=== PATIENT | female | born 1975 | race American Indian/Alaskan Native ===

== ENCOUNTER 2019-05-05 16:41 | Emergency (ER) | payer MEDICAID ==
--- NOTE | 2019-05-05 17:10 | Event Note ---
ED Screening Note ED Screening Note: l hip pain out of her bp meds no fall or trauma no dysuria lmp yrs ago psh csec nephrectomy no pcp pmh hx perigangleoma ca htn rx metoprolol norvasc This initial assessment/diagnostic orders/clinical plan/treatment(s) is/are subject to change based on patients health status, clinical progression and re- assessment by fellow clinical providers in the ED. Further treatment and workup at subsequent clinical providers discretion. Patient/guardian urged not to elope from the ED as their condition may be serious if not clinically assessed and managed. Initial orders include: bp recheck rx in acc pcp referral
[2019-05-05 17:40] LABS: Hematocrit 39.9 % (30.3-42.9); Hemoglobin 13.6 gm/dl (10.1-14.3); Mean Corpuscular HGB Conc 34 % (30-34); Mean Corpuscular Volume 92 fl (79-97); Platelet Count 240 K/mm3 (140-440); Red Blood Count 4.35 M/mm3 (3.65-5.03); Red Cell Distribution Width 15.4 % (13.2-15.2)
[2019-05-05 17:43] LABS: Bacteria,Urine 1+ /HPF (Negative); Bilirubin,Urine NEG (Negative); Blood,Urine SM (Negative); Color,Urine Yellow (Yellow); Mucus,Urine FEW /HPF; Protein,Urine <15 mg/dL mg/dL (Negative); Urobilinogen,Urine < 2.0 mg/dL (<2.0)
[2019-05-05 17:55] LABS: HCG Qualitative,Urine Negative (Negative)
[2019-05-05 18:00] LABS: Calcium 9.8 mg/dL (8.4-10.2)
[2019-05-05] MEDS ORDERED: DELTASONE PO STA (18:46)
[2019-05-05] MEDS ORDERED: PERCOCET 5/325 PO STA (18:46)
[2019-05-05 19:15] VITALS: BP 160/113
--- NOTE | 2019-05-05 19:47 | Emergency Department Report ---
ED General Adult HPI - General Chief complaint: Back Pain/Injury Stated complaint: (L) SIDE/BACK/HIP/LEG/ARM PAIN(S) Time Seen by Provider: 05/05/19 17:07 Source: patient Mode of arrival: Ambulatory Limitations: No Limitations - History of Present Illness Initial comments: 43 year old -[place] Citizen female with past medical history of hypertension presents emergency department complaining of pain to the left hip and back region been present for the last 2 days. Pain fluctuates down her left buttocks and her right left thigh stopping at her knee, worse with palpation and various range of motion. She's also has a history of hypertension which she takes amlodipine 5 mg and a lower dose of metoprolol. She's been out of her medication for the last couple days and reports that her blood pressure has been elevated. She denies any headache, blurred vision, chest pain, palpitations, nausea, O, vomiting, tinnitus. She has not tried to take anything for pain and denies any known injury, which exacerbated her hip trauma or which may have caused her blood pressure checked to a little bit further. She does see her primary care care doctor, but has been out of his medications since last visit in due to follow-up with them next week. Severity scale (0 -10): 1 Quality: dull Consistency: constant Improves with: none Worsens with: none Associated Symptoms: denies other symptoms - Related Data Previous Rx's Medication Instructions Recorded Last Taken Type Metoprolol [Lopressor TAB] 25 mg PO BID #30 tablet 05/05/19 Unknown Rx amLODIPine [Norvasc] 5 mg PO DAILY #20 tab 05/05/19 Unknown Rx methOCARBAMOL [Robaxin TAB] 750 mg PO Q8H PRN #20 tablet 05/05/19 Unknown Rx predniSONE [Deltasone] 50 mg PO QDAY #7 tab 05/05/19 Unknown Rx Allergies Allergy/AdvReac Type Severity Reaction Status Date / Time levofloxacin Allergy Unknown Verified 05/05/19 16:44 ED Review of Systems ROS: Stated complaint: (L) SIDE/BACK/HIP/LEG/ARM PAIN(S) Other details as noted in HPI Comment: All other systems reviewed and negative ED Past Medical Hx - Past Medical History Previous Medical History?: Yes Hx Hypertension: Yes Additional medical history: PERIGANGLIOMA,LEFT NEPHRECTOMY, KIDNEY CA - Surgical History Past Surgical History?: Yes - Social History Smoking Status: Never Smoker Substance Use Type: None - Medications Home Medications: Home Medications Medication Instructions Recorded Confirmed Last Taken Type Metoprolol [Lopressor TAB] 25 mg PO BID #30 tablet 05/05/19 Unknown Rx amLODIPine [Norvasc] 5 mg PO DAILY #20 tab 05/05/19 Unknown Rx methOCARBAMOL [Robaxin TAB] 750 mg PO Q8H PRN #20 tablet 05/05/19 Unknown Rx predniSONE [Deltasone] 50 mg PO QDAY #7 tab 05/05/19 Unknown Rx ED Physical Exam - General Limitations: No Limitations General appearance: alert, in no apparent distress - Head Head exam: Present: atraumatic, normocephalic - Eye Eye exam: Present: normal appearance, PERRL, EOMI - ENT ENT exam: Present: normal exam, mucous membranes moist - Neck Neck exam: Present: normal inspection, full ROM - Respiratory Respiratory exam: Present: normal lung sounds bilaterally. Absent: respiratory distress, wheezes, rales, chest wall tenderness, accessory muscle use - Cardiovascular Cardiovascular Exam: Present: regular rate, normal rhythm. Absent: systolic murmur, diastolic murmur, rubs, gallop - GI/Abdominal GI/Abdominal exam: Present: soft, normal bowel sounds - Extremities Exam Extremities exam: Present: normal inspection - Back Exam Back exam: Present: normal inspection, paraspinal tenderness (tenderness to the left sacroiliac joint with palpation. Sitting straight leg raise is negative. No midline tenderness. No CVA tenderness.) - Neurological Exam Neurological exam: Present: alert, oriented X3, CN II-XII intact - Psychiatric Psychiatric exam: Present: normal affect, normal mood - Skin Skin exam: Present: warm, dry, intact, normal color. Absent: rash ED Course Vital Signs 05/05/19 05/05/19 05/05/19 17:09 17:58 19:15 Temperature 98.9 F Pulse Rate 87 85 84 Respiratory 20 16 Rate Blood Pressure 180/128 Blood Pressure 157/105 160/113 [Right] O2 Sat by Pulse 97 98 Oximetry ED Medical Decision Making - Lab Data Result diagrams: 05/05/19 17:31 05/05/19 17:31 Critical care attestation.: If time is entered above; I have spent that time in minutes in the direct care of this critically ill patient, excluding procedure time. ED Disposition Clinical Impression: HTN (hypertension), Sciatica Disposition: - TO HOME OR SELFCARE Is pt being admited?: No Does the pt Need Aspirin: No Condition: Stable Instructions: Hypertension (ED), Lumbar Radiculopathy (ED) Prescriptions: predniSONE [Deltasone] 50 mg PO QDAY #7 tab Metoprolol [Lopressor TAB] 25 mg PO BID #30 tablet amLODIPine [Norvasc] 5 mg PO DAILY #20 tab methOCARBAMOL [Robaxin TAB] 750 mg PO Q8H PRN #20 tablet PRN Reason: back and hip pain Referrals: MIKE [facility] [employer] [Primary Care Provider] - 3-5 Days
== END 2019-05-05 19:00 | disposition home or self-care (01) ==
LOC: ED 16:41
DX: M54.32 Sciatica, left side (principal); I10 Essential (primary) hypertension; Z98.890 Other specified postprocedural states; Z79.899 Other long term (current) drug therapy; Z88.1 Allergy status to other antibiotic agents
CPT/HCPCS: 36415; 80048; 81001; 81025; 85027; 87086; 99283; J7512

== ENCOUNTER 2020-12-30 20:22 | Inpatient (IN) | payer MEDICAID, OTHER ==
--- NOTE | 2020-12-30 20:44 | Emergency Department Report ---
ED Shortness of Breath HPI - General Chief Complaint: Dyspnea/Respdistress Stated Complaint: DIFF. BREATHING Time Seen by Provider: 12/30/20 20:22 Source: patient, EMS Mode of arrival: Stretcher Limitations: No Limitations - History of Present Illness Initial Comments: Patient is a 45-year-old female that presents emergency room with complaints of shortness of breath, dyspnea on exertion, fatigue and weakness and cough. Patient states she been feeling bad for about 2 weeks. Patient dates her symptoms are worsening. Patient denies chest pain. Patient states her symptoms are better with rest and worse with exertion and movement. Patient complains of a dry cough. Patient states she has not had her Covid vaccine. Patient is not sure if she come in contact with somebody with Covid. Patient denies recent travel. Patient denies recent international travel. Patient denies fever and chills. Patient denies loss of smell.. Patient denies diarrhea. He states he has a past medical history of hypertension. Patient brought in by EMS. EMS report received from EMS. EMS states that when they arrived on scene, the patient was having difficulty breathing and was satting in the 50s and the patient was placed on a nonrebreather and her sats improved to 75. Patient was not given any medications in route. MD Complaint: shortness of breath - Related Data Previous Rx's Medication Instructions Recorded Last Taken Type Metoprolol [Lopressor TAB] 25 mg PO BID #30 tablet 05/05/19 Unknown Rx amLODIPine 5 mg PO DAILY #20 tab 05/05/19 Unknown Rx methOCARBAMOL [Robaxin TAB] 750 mg PO Q8H PRN #20 tablet 05/05/19 Unknown Rx predniSONE [Deltasone] 50 mg PO QDAY #7 tab 05/05/19 Unknown Rx Allergies Allergy/AdvReac Type Severity Reaction Status Date / Time levofloxacin Allergy Unknown Verified 05/05/19 16:44 tramadol Allergy Unknown Verified 12/30/20 21:15 ED Review of Systems ROS: Stated complaint: DIFF. BREATHING Other details as noted in HPI Constitutional: denies: chills, fever Eyes: denies: eye pain, eye discharge, vision change ENT: denies: ear pain, throat pain Respiratory: see HPI, cough, shortness of breath, SOB with exertion, SOB at rest. denies: wheezing Cardiovascular: dyspnea on exertion. denies: chest pain, palpitations Endocrine: no symptoms reported Gastrointestinal: denies: abdominal pain, nausea, diarrhea Genitourinary: denies: urgency, dysuria, discharge Musculoskeletal: denies: back pain, joint swelling, arthralgia Skin: denies: rash, lesions Neurological: denies: headache, weakness, paresthesias Psychiatric: denies: anxiety, depression Hematological/Lymphatic: denies: easy bleeding, easy bruising ED Past Medical Hx - Past Medical History Previous Medical History?: Yes Hx Hypertension: Yes Additional medical history: PERIGANGLIOMA,LEFT NEPHRECTOMY, KIDNEY CA, stocmach CA - Surgical History Past Surgical History?: Yes Additional Surgical History: abdominal sx - Family History Family history: no significant - Social History Smoking Status: Never Smoker Substance Use Type: None - Medications Home Medications: Home Medications Medication Instructions Recorded Confirmed Last Taken Type Metoprolol [Lopressor TAB] 25 mg PO BID #30 tablet 05/05/19 Unknown Rx amLODIPine 5 mg PO DAILY #20 tab 05/05/19 Unknown Rx methOCARBAMOL [Robaxin TAB] 750 mg PO Q8H PRN #20 tablet 05/05/19 Unknown Rx predniSONE [Deltasone] 50 mg PO QDAY #7 tab 05/05/19 Unknown Rx ED Physical Exam - General Limitations: No Limitations General appearance: alert, in distress, obese - Head Head exam: Present: atraumatic, normocephalic - Eye Eye exam: Present: normal appearance - ENT ENT exam: Present: mucous membranes dry - Neck Neck exam: Present: normal inspection - Respiratory Respiratory exam: Present: respiratory distress, rales, accessory muscle use, decreased breath sounds - Cardiovascular Cardiovascular Exam: Present: regular rate, normal rhythm, tachycardia. Absent: systolic murmur, diastolic murmur, rubs, gallop - GI/Abdominal GI/Abdominal exam: Present: soft, normal bowel sounds. Absent: distended, tenderness, guarding - Rectal Rectal exam: Present: deferred - Extremities Exam Extremities exam: Present: normal inspection - Back Exam Back exam: Present: normal inspection - Neurological Exam Neurological exam: Present: alert, oriented X3 - Psychiatric Psychiatric exam: Present: normal affect, normal mood - Skin Skin exam: Present: warm, dry, intact, normal color. Absent: rash ED Course Vital Signs 12/30/20 12/30/20 12/30/20 20:37 21:02 22:08 Temperature 101.2 F H Pulse Rate 116 H 112 H 112 H Respiratory 44 H 44 H 43 H Rate Blood Pressure 129/97 Blood Pressure 129/97 [Right] O2 Sat by Pulse 78 L 95 91 Oximetry 12/30/20 12/30/20 12/30/20 22:16 22:30 22:49 Temperature Pulse Rate 111 H 111 H Respiratory 39 H 34 H Rate Blood Pressure Blood Pressure 104/64 [Right] O2 Sat by Pulse 90 86 Oximetry 12/30/20 12/30/20 12/31/20 23:01 23:31 00:15 Temperature Pulse Rate 109 H 106 H 106 H Respiratory 38 H 33 H 35 H Rate Blood Pressure 127/80 104/51 104/51 Blood Pressure [Right] O2 Sat by Pulse 92 89 90 Oximetry 12/31/20 00:31 Temperature Pulse Rate 106 H Respiratory 34 H Rate Blood Pressure 131/87 Blood Pressure [Right] O2 Sat by Pulse 91 Oximetry - Reevaluation(s) Reevaluation #1: Patient found to be febrile. Patient on monitoring manager and it showed the patient was 77% on nonrebreather and the patient was placed on BiPAP. On BiPAP, the patient's oxygen saturation is 96-97%. Patient's lung sounds: Patient. Patient has deeper breath sounds. Patient states she feels better on the BiPAP. Patient will have labs done. A Covid panel was ordered. Patient will have antibiotics and steroids. 12/30/20 20:50 Reevaluation #2: Patient states she is feeling better. Patient still on BiPAP. Patient satting 96%. Patient's heart rate is improving. 12/30/20 21:12 Reevaluation #3: Patient complaining of back pain. Patient was given Dilaudid. Patient also be given rectal Tylenol for fever. Patient will be given Zofran to prevent nausea vomiting since the patient is on BiPAP. Patient will have a VQ scan done. 12/30/20 22:20 Reevaluation #4: I discussed all results with patient. I discussed plan of care with patient. Patient agrees with plan of care and admission. Patient to be admitted to the hospitalist service. 12/30/20 22:27 - Consultations Consultation #1: Hospitalist consulted for admission. Hospitalist to admit patient. 12/30/20 22:27 Consultation #2: ID consulted 12/30/20 22:28 ED Medical Decision Making - Lab Data Result diagrams: 12/30/20 20:48 12/30/20 21:02 - EKG Data -: EKG Interpreted by Me EKG shows normal: sinus rhythm, axis, intervals, QRS complexes, ST-T waves Rate: tachycardia - Radiology Data Radiology results: report reviewed CHEST 1 VIEW 12/30/2020 9:04 PM INDICATION / CLINICAL INFORMATION: Dyspnea. COMPARISON: None available. FINDINGS: SUPPORT DEVICES: None. HEART / MEDIASTINUM: No significant abnormality. LUNGS / PLEURA: Patchy and confluent hazy and consolidative opacities throughout the lungs relatively sparing apices. No pneumothorax. ADDITIONAL FINDINGS: No significant additional findings. IMPRESSION: 1. Moderate diffuse airspace disease concerning for multifocal pneumonia. Etiol ogy could be atypical/viral. Recommend clinical correlation and continued follow-up until resolution. Perfusion Scan HISTORY: sob. hypoxia. high dimer. TECHNIQUE: Patient was given 5 mCi of technetium MAA. COMPARISON: Chest x-ray from today FINDINGS: No appreciable perfusional defect identified. IMPRESSION: Unremarkable exam. - Medical Decision Making Patient is a 45-year-old female who presents emergency room with complaints of difficulty breathing, cough, weakness, fatigue. Patient body mass. Patient found to have respiratory failure and hypoxia 2 weeks. Patient brought in by EMS. EMS put the patient on nonrebreather and was satting 78%. Patient's original sat was 60%. Patient immediately placed on BiPAP after initial evaluation. Patient's responded well to BiPAP and work to breathe improved and oxygenation was 96% and above. Patient found to be febrile. Patient was given early antibiotics and Decadron patient had labs done which showed elevated Covid markers and elevated D-dimer and elevated BNP and renal failure. Patient had normal WBC. Patient had multiple abnormalities on labs. Patient had an EKG done which showed sinus tachycardia with no acute ST changes. Patient had a chest x-ray which showed no CHF changes but showed multifocal pneumonia. I p ersonally interpreted the EKG and the chest x-ray. Patient admitted to the hospital service for further evaluation treatment into the ICU. Critical care time documented due to the multiple reassessments, prolonged time at the bedside, interpretation of diagnostics and labs. - Differential Diagnosis PUI, Covid, pneumonia, respiratory failure, hypoxia, tachycardia, CHF Critical Care Time: Yes Critical care time in (mins) excluding proc time.: 35 Critical care attestation.: If time is entered above; I have spent that time in minutes in the direct care of this critically ill patient, excluding procedure time. Critical Care Time: 35 minutes ED Disposition Clinical Impression: Person under investigation for COVID-19, SOB (shortness of breath), Cough, Hyperkalemia Respiratory failure Qualifiers: Chronicity: acute Respiratory failure complication: hypoxia Qualified Code(s): J96.01 - Acute respiratory failure with hypoxia Fever Qualifiers: Fever type: unspecified Qualified Code(s): R50.9 - Fever, unspecified Renal failure Qualifiers: Renal failure chronicity: acute Acute renal failure type: unspecified Qualified Code(s): N17.9 - Acute kidney failure, unspecified Disposition: 09 OP ADMIT IP TO THIS HOSP Is pt being admited?: Yes Does the pt Need Aspirin: No Condition: Critical Time of Disposition: 22:27
[2020-12-30] MEDS ORDERED: dexAMETHasone 4 MG/ML VIAL IV ONE (20:52)
[2020-12-30] MEDS ORDERED: AZITHROMYCIN/NS 500 MG/250 ML 500 MG/250 ML BAG IV ONE (20:52)
[2020-12-30] MEDS ORDERED: cefTRIAXone/NS 2 GM/100 ML 2 GM/100 ML BAG IV ONE (20:52)
[2020-12-30 21:12] LABS: Basophils % (Auto) 0.5 % (0.0-1.8); Eosinophils % (Auto) 0.1 % (0.0-4.3); Hemoglobin 13.4 gm/dl (10.1-14.3); Lymphocytes # (Auto) 1.5 K/mm3 (1.2-5.4); Lymphocytes % (Auto) 16.1 % (13.4-35.0); Mean Corpuscular HGB Conc 34 % (30-34); Mean Corpuscular Volume 92 fl (79-97); Monocytes # (Auto) 0.7 K/mm3 (0.0-0.8); Platelet Count 378 K/mm3 (140-440); Red Blood Count 4.26 M/mm3 (3.65-5.03); Red Cell Distribution Width 17.3 % (13.2-15.2)
[2020-12-30 21:23] LABS: INR 1.25 (0.87-1.13)
[2020-12-30 21:37] LABS: Creatine Kinase MB 3.7 ng/mL (0.0-4.0)
[2020-12-30 21:38] LABS: Alanine Aminotransferase 22 units/L (7-56); Albumin 3.1 g/dL (3.9-5); BUN/Creatinine Ratio 13; Blood Urea Nitrogen 38 mg/dL (7-17); Calcium 8.9 mg/dL (8.4-10.2); Hemolysis Index 67
[2020-12-30 21:41] LABS: C-Reactive Protein 15.4 mg/dL (0.00-1.30)
--- NOTE | 2020-12-30 22:10 | XRay Report ---
CHEST 1 VIEW 12/30/2020 9:04 PM INDICATION / CLINICAL INFORMATION: Dyspnea. COMPARISON: None available. FINDINGS: SUPPORT DEVICES: None. HEART / MEDIASTINUM: No significant abnormality. LUNGS / PLEURA: Patchy and confluent hazy and consolidative opacities throughout the lungs relatively sparing apices. No pneumothorax. ADDITIONAL FINDINGS: No significant additional findings. IMPRESSION: 1. Moderate diffuse airspace disease concerning for multifocal pneumonia. Etiology could be atypical/ viral. Recommend clinical correlation and continued follow-up until resolution. Signer Name: Matthew Johansen MD Signed: 12/30/2020 10:05 PM Workstation Name: [id number]
[2020-12-30] MEDS ORDERED: HYDROmorphone 1 MG/1 ML INJ IV ONE (22:19)
[2020-12-30] MEDS ORDERED: SODIUM CHLORIDE 0.9% 1000 ML 1,000 ML IV ONE (22:19)
[2020-12-30] MEDS ORDERED: ACETAMINOPHEN 650 MG RECT SUPP PR ONE (22:19)
[2020-12-30] MEDS ORDERED: ONDANSETRON 4 MG/2 ML INJ IV ONE ×2 (22:21)
[2020-12-30] MEDS ORDERED: ACETAMINOPHEN 325 MG TAB PO ONE (22:29)
[2020-12-30] MEDS ORDERED: hydrALAZINE 20 MG/1 ML INJ IV PRN (22:47)
--- NOTE | 2020-12-30 22:55 | History and Physical Report ---
History of Present Illness Date of examination: 12/30/20 Date of admission: 12/30/20 Chief complaint: Shortness of breath History of present illness: 45-year-old female with past medical history of hypertension, left nephrectomy kidney cancer and stomach cancer was brought to the emergency room with complaints of shortness of breath, dyspnea on exertion, fatigue and weakness and cough for about 2 weeks. Patient dates her symptoms are worsening. Patient denies chest pain. Patient states her symptoms are better with rest and worse with exertion and movement. Patient complains of a dry cough. Patient states she has not had her Covid vaccine. Patient is not sure if she come in contact with somebody with Covid. Patient denies recent travel. Patient denies recent international travel. Patient denies fever and chills. Patient denies loss of smell.. Patient denies diarrhea. He states he has a past medical history of hypertension. In the ER patient is found to have acute respiratory failure. Chest x-ray shows moderate diffuse airspace disease: Concerning for multifocal pneumonia. Also patient BUN is 38 creatinine 2.9 sodium 125 and potassium 5.6 proBNP 780.2 C- reactive protein 15.40 Past History Past Medical History: hypertension, other (Kidney cancer stomach cancer) Past Surgical History: Other (Left nephrectomy) Medications and Allergies Allergies Allergy/AdvReac Type Severity Reaction Status Date / Time levofloxacin Allergy Unknown Verified 05/05/19 16:44 tramadol Allergy Unknown Verified 12/30/20 21:15 Home Medications Medication Instructions Recorded Confirmed Last Taken Type Metoprolol [Lopressor TAB] 25 mg PO BID #30 tablet 05/05/19 Unknown Rx amLODIPine 5 mg PO DAILY #20 tab 05/05/19 Unknown Rx methOCARBAMOL [Robaxin TAB] 750 mg PO Q8H PRN #20 tablet 05/05/19 Unknown Rx predniSONE [Deltasone] 50 mg PO QDAY #7 tab 05/05/19 Unknown Rx Active Meds: Active Medications Albuterol (Albuterol 2.5 Mg/3 Ml Nebu) 2.5 mg IH Q3H BEN Amlodipine Besylate (Amlodipine 5 Mg Tab) 5 mg PO DAILY BEN Dexamethasone (Dexamethasone 4 Mg/Ml Vial) 6 mg IV DAILY BEN Heparin Sodium (Porcine) (Heparin 5,000 Unit/1 Ml Vial) 5,000 unit SUB-Q Q8HR BEN Hydralazine HCl (Hydralazine 20 Mg/1 Ml Inj) 10 mg IV Q6H PRN PRN Reason: htn Sodium Chloride (Nacl 0.9% 1000 Ml) 1,000 mls @ 999 mls/hr IV BOLUS ONE Stop: 12/30/20 23:19 Last Admin: 12/30/20 22:29 Dose: 999 mls/hr Documented by: Ceftriaxone Sodium (Rocephin/Ns 2 Gm/100 Ml) 2 gm in 100 mls @ 200 mls/hr IV Q24H BEN; Protocol Azithromycin (Zithromax/Ns) 500 mg in 250 mls @ 250 mls/hr IV Q24H BEN; Protocol Methocarbamol (Methocarbamol 750 Mg Tab) 750 mg PO Q8H PRN PRN Reason: back and hip pain Metoprolol Tartrate (Metoprolol Tartrate 25 Mg Tab) 25 mg PO BID BEN Pantoprazole Sodium (Pantoprazole 40 Mg Tab) 40 mg PO QDAC BEN Review of Systems Respiratory: cough, cough with sputum, shortness of breath, dyspnea on exertion, wheezing Exam - Constitutional Vitals: Temp Pulse Resp BP Pulse Ox 101.2 F H 111 H 34 H 104/64 86 12/30/20 20:37 12/30/20 22:30 12/30/20 22:30 12/30/20 22:49 12/30/20 22:30 General appearance: Present: mild distress, well-nourished - EENT Eyes: Present: PERRL ENT: hearing intact, clear oral mucosa - Neck Neck: Present: supple, normal ROM - Respiratory Respiratory effort: normal, labored Respiratory: bilateral: wheezing - Cardiovascular Heart Sounds: Present: S1 & S2. Absent: rub, click - Extremities Extremities: pulses symmetrical, No edema Peripheral Pulses: within normal limits - Abdominal General gastrointestinal: Present: soft, non-tender, non-distended, normal bowel sounds Female genitourinary: Present: normal - Integumentary Integumentary: Present: clear, warm, dry - Musculoskeletal Musculoskeletal: gait normal, strength equal bilaterally - Psychiatric Psychiatric: appropriate mood/affect, intact judgment & insight - Neurologic Neurologic: CNII-XII intact, moves all extremities HEART Score - HEART Score Troponin: Troponin T < 0.010 ng/mL (0.00-0.029) 12/30/20 20:48 Results - Labs CBC & Chem 7: 12/30/20 20:48 12/30/20 21:02 Labs: Laboratory Last Values WBC 9.3 K/mm3 (4.5-11.0) 12/30/20 20:48 RBC 4.26 M/mm3 (3.65-5.03) 12/30/20 20:48 Hgb 13.4 gm/dl (10.1-14.3) 12/30/20 20:48 Hct 39.0 % (30.3-42.9) 12/30/20 20:48 MCV 92 fl (79-97) 12/30/20 20:48 MCH 31 pg (28-32) 12/30/20 20:48 MCHC 34 % (30-34) 12/30/20 20:48 RDW 17.3 % (13.2-15.2) H 12/30/20 20:48 Plt Count 378 K/mm3 (140-440) 12/30/20 20:48 Lymph % (Auto) 16.1 % (13.4-35.0) 12/30/20 20:48 [place] % (Auto) 8.0 % (0.0-7.3) H 12/30/20 20:48 Eos % (Auto) 0.1 % (0.0-4.3) 12/30/20 20:48 Baso % (Auto) 0.5 % (0.0-1.8) 12/30/20 20:48 Lymph # (Auto) 1.5 K/mm3 (1.2-5.4) 12/30/20 20:48 [place] # (Auto) 0.7 K/mm3 (0.0-0.8) 12/30/20 20:48 Eos # (Auto) 0.0 K/mm3 (0.0-0.4) 12/30/20 20:48 Baso # (Auto) 0.0 K/mm3 (0.0-0.1) 12/30/20 20:48 Seg Neutrophils % 75.3 % (40.0-70.0) H 12/30/20 20:48 Seg Neutrophils # 7.0 K/mm3 (1.8-7.7) 12/30/20 20:48 PT 15.5 Sec. (12.2-14.9) H 12/30/20 20:48 INR 1.25 (0.87-1.13) H 12/30/20 20:48 APTT 31.0 Sec. (24.2-36.6) 12/30/20 20:48 D-Dimer 581.96 ng/mlDDU (0-234) H 12/30/20 20:48 Sodium 125 mmol/L (137-145) L 12/30/20 20:48 Potassium 5.6 mmol/L (3.6-5.0) H 12/30/20 20:48 Chloride 93.1 mmol/L (98-107) L 12/30/20 20:48 Carbon Dioxide 20 mmol/L (22-30) L 12/30/20 20:48 Anion Gap 18 mmol/L 12/30/20 20:48 BUN 38 mg/dL (7-17) H 12/30/20 20:48 Creatinine 2.9 mg/dL (0.6-1.2) H 12/30/20 20:48 Estimated GFR 21 ml/min 12/30/20 20:48 BUN/Creatinine Ratio 13 % 12/30/20 20:48 Glucose 117 mg/dL (65-100) H 12/30/20 21:02 Lactic Acid 1.30 mmol/L (0.7-2.0) 12/30/20 20:48 Calcium 8.9 mg/dL (8.4-10.2) 12/30/20 20:48 Ferritin 814.7 ng/mL (10.0-200.0) H 12/30/20 21:02 Total Bilirubin 0.40 mg/dL (0.1-1.2) 12/30/20 20:48 AST 47 units/L (5-40) H 12/30/20 20:48 ALT 22 units/L (7-56) 12/30/20 20:48 Alkaline Phosphatase 68 units/L (35-129) 12/30/20 20:48 Lactate Dehydrogenase 798 units/L (91-180) H 12/30/20 21:02 Total Creatine Kinase 394 units/L (30-135) H 12/30/20 20:48 CK-MB (CK-2) 3.7 ng/mL (0.0-4.0) 12/30/20 20:48 CK-MB (CK-2) Rel Index 0.9 (0-4) 12/30/20 20:48 Troponin T < 0.010 ng/mL (0.00-0.029) 12/30/20 20:48 C-Reactive Protein 15.40 mg/dL (0.00-1.30) H 12/30/20 21:02 NT-Pro-B Natriuret Pep 780.2 pg/mL (0-450) H 12/30/20 21:02 Total Protein 7.6 g/dL (6.3-8.2) 12/30/20 20:48 Albumin 3.1 g/dL (3.9-5) L 12/30/20 20:48 Albumin/Globulin Ratio 0.7 % 12/30/20 20:48 HCG, Qual Negative (Negative) 12/30/20 21:02 - Imaging and Cardiology Chest x-ray: image reviewed Assessment and Plan VTE prophylaxis?: Chemical Plan of care discussed with patient/family: Yes - Patient Problems (1) Person under investigation for COVID-19 Status: Acute Plan to address problem: Admit the patient to the ICU. We will put the patient on BiPAP. DuoNeb by nebulizer every 4 hours as needed. Rocephin 2 g IV daily and Zithromax 500 IV daily. Decadron 6 mg IV daily. We will send the Covid PCR. Do the blood cultures sputum culture. Infectious diseases on consulted. Follow the marker of Covid. Also please follow the result of VQ scan. (2) Acute respiratory failure Status: Acute Plan to address problem: Patient is on BiPAP. DuoNeb by nebulizer every 4 hours as needed. Rocephin 2 g IV daily and Zithromax 500 mg IV daily. Decadron 6 mg IV daily. Follow Covid PCR and Covid marker. Consult pulmonary if needed (3) Hypertension Status: Acute Plan to address problem: Hydralazine 10 mg IV every 6 hours as needed. We will monitor the blood pressure closely (4) Cough Status: Acute Plan to address problem: Robitussin-DM 10 mL p.o. every 6 hours as needed for cough. (5) Fever Status: Acute Qualifiers: Fever type: unspecified Qualified Code(s): R50.9 - Fever, unspecified Plan to address problem: Tylenol 650 mg p.o. every 6 hours as needed. Rocephin 2 g IV daily and Zithromax 500 mils IV daily. Due to the blood culture and sputum culture (6) Renal failure Status: Acute Qualifiers: Renal failure chronicity: acute Acute renal failure type: unspecified Qualified Code(s): N17.9 - Acute kidney failure, unspecified Plan to address problem: Patient got normal saline 1 L fluid bolus in the ER. Avoid nephrotoxic drug. Patient has history of left nephrectomy. We consulted nephrology to see the patient. Recheck BMP in the morning (7) Hyperkalemia Status: Acute Plan to address problem: Kayexalate 30 g p.o. x1 dose. We will recheck the BMP in the morning. Reconsult nephrology for evaluation (8) DVT prophylaxis Status: Acute Plan to address problem: Heparin 5000 units subcu every 8 hours for DVT prophylaxis. Protonix 40 mg p.o. daily for GI prophylaxis. Patient is a full code
[2020-12-31] MEDS ORDERED: HYDROmorphone 1 MG/1 ML INJ IV ONE (00:05)
[2020-12-31] MEDS: ALBUTEROL 2.5 MG/3 ML NEBU IH SCH ×6 (00:20→20:35)
--- NOTE | 2020-12-31 00:29 | Nuclear Medicine Report ---
Perfusion Scan HISTORY: sob. hypoxia. high dimer. TECHNIQUE: Patient was given 5 mCi of technetium MAA. COMPARISON: Chest x-ray from today FINDINGS: No appreciable perfusional defect identified. IMPRESSION: Unremarkable exam. Signer Name: Abdelrahman Lynne MD Signed: 12/31/2020 12:25 AM Workstation Name: [id number]
[2020-12-31 03:31] LABS: Basophils % (Auto) 0.4 % (0.0-1.8); Hematocrit 37.7 % (30.3-42.9); Hemoglobin 12.5 gm/dl (10.1-14.3); Lymphocytes % (Auto) 10.1 % (13.4-35.0); Mean Corpuscular HGB Conc 33 % (30-34); Mean Corpuscular Volume 96 fl (79-97); Monocytes # (Auto) 0.6 K/mm3 (0.0-0.8); Platelet Count 337 K/mm3 (140-440); Red Blood Count 3.93 M/mm3 (3.65-5.03); Red Cell Distribution Width 17.8 % (13.2-15.2)
[2020-12-31] MEDS: SODIUM POLYSTYRENE 15 GM/60 ML ORAL LIQD PO SCH ×2 (06:01→12:02)
[2020-12-31] MEDS: HEPARIN 5,000 UNIT/1 ML VIAL SUB-Q SCH ×3 (06:01→22:55)
[2020-12-31] MEDS ORDERED: PANTOPRAZOLE 40 MG TAB PO SCH (07:30)
[2020-12-31] MEDS ORDERED: INSULIN REGULAR, HUMAN 100 UNITS/1 ML IV SCH (08:30)
[2020-12-31] MEDS ORDERED: DEXTROSE 50% IN WATER (25GM) 50 ML SYRINGE IV SCH (08:30)
--- NOTE | 2020-12-31 08:33 | Electrocardiograph Report ---
[facility] Test Date: 2020-12-30 Test Time: 21:09:06 Pat Name: RUTH JASON Department: Room: [place] [address] Gender: F [employer] Developer: JAY : 1975 Requested By: CATY SAMANIEGO III Order Number: [id number] Reading MD: Campbell Hay Measurements Intervals [place] Rate: 112 P: 51 NV: 143 QRS: 65 QRSD: 77 T: 28 QT: 316 QTc: 432 Interpretive Statements Sinus tachycardia Probable left atrial enlargement No previous ECG available for comparison Electronically Signed On 12-31-2020 8:33:18 EDT by Campbell Hay
[2020-12-31] MEDS: CALCIUM GLUCONATE 2,000 MG in SODIUM CHLORIDE 0.9% 100 ML IV ONE ×2 (09:42→10:23)
--- NOTE | 2020-12-31 10:06 | Event Note ---
I was asked by charge nurse to evaluate patient. Patient is currently talking to her daughter. Her oxygen saturation is 48% on room air. She has refused BiPAP. She appears to be protecting airway. I spoke with her daughter on speaker phone. I explained to the daughter that patient will require mechanical ventilation "life support" if she does not comply with this therapy. I have asked charge nurse to contact hospitalist for sedation such as Ativan.
[2020-12-31 10:08] LABS: Calcium 8.4 mg/dL (8.4-10.2)
[2020-12-31] MEDS ORDERED: LORazepam 2 MG/ML VIAL IV PRN (10:09)
--- NOTE | 2020-12-31 11:17 | Progress Note ---
Assessment and Plan Assessment and plan: (1) Person under investigation for COVID-19 Status: Acute Plan to address problem: Admit the patient to the ICU. We will put the patient on BiPAP. DuoNeb by nebulizer every 4 hours as needed. Rocephin 2 g IV daily and Zithromax 500 IV daily. Decadron 6 mg IV daily. We will send the Covid PCR. Do the blood cultures sputum culture. Infectious diseases on consulted. Follow the marker of Covid. Also please follow the result of VQ scan. (2) Acute respiratory failure Status: Acute Plan to address problem: Patient is on BiPAP. DuoNeb by nebulizer every 4 hours as needed. Rocephin 2 g IV daily and Zithromax 500 mg IV daily. Decadron 6 mg IV daily. Follow Covid PCR and Covid marker. Consult pulmonary if needed (3) Hypertension Status: Acute Plan to address problem: Hydralazine 10 mg IV every 6 hours as needed. We will monitor the blood pressure closely (4) Cough Status: Acute Plan to address problem: Robitussin-DM 10 mL p.o. every 6 hours as needed for cough. (5) Fever Status: Acute Qualifiers: Fever type: unspecified Qualified Code(s): R50.9 - Fever, unspecified Plan to address problem: Tylenol 650 mg p.o. every 6 hours as needed. Rocephin 2 g IV daily and Zithromax 500 mils IV daily. Due to the blood culture and sputum culture (6) Renal failure Status: Acute Qualifiers: Renal failure chronicity: acute Acute renal failure type: unspecified Qualified Code(s): N17.9 - Acute kidney failure, unspecified Plan to address problem: Patient got normal saline 1 L fluid bolus in the ER. Avoid nephrotoxic drug. Patient has history of left nephrectomy. We consulted nephrology to see the patient. Recheck BMP in the morning (7) Hyperkalemia Status: Acute Plan to address problem: Kayexalate 30 g p.o. x1 dose. We will recheck the BMP in the morning. Reconsult nephrology for evaluation (8) DVT prophylaxis Status: Acute Plan to address problem: Heparin 5000 units subcu every 8 hours for DVT prophylaxis. Protonix 40 mg p.o. daily for GI prophylaxis. Patient is a full code 12/31/2020 -Severe sepsis with multiorgan dysfunction; continue IV antibiotics and IV fluids -PUI; dexamethasone, ID consult and pending results. -Acute hypoxic respiratory failure; patient is on BiPAP. Pulmonary consulted. Nebulizer treatment -ZHANE with hyperkalemia; patient was given Kayexalate. Patient refused calcium and insulin with dextrose. Nephrology consulted. -Patient is critically sick and she was agitated and tries to go home. ER doctor discussed with the daughter and patient wants to stay. I put the patient on Ativan as needed. The high probability of a clinically significant, sudden or life threatening deterioration of the [respiratory, nephrology] system(s) required my full and direct attention, intervention and personal management. The aggregate critical care time was [35] minutes. This time is in addition to time spent performing reported procedures but includes the following: [x] Data Review and interpretation [x] Patient assessment and monitoring of vital signs [x] Documentation [x] Medication orders and management History Interval history: Patient was seen and evaluated this morning Patient was in respiratory distress, on BiPAP patient was anxious Hospitalist Physical - Physical exam Narrative exam: In cardiopulmonary distress, . The patient is morbidly obese. Vital signs as documented. Head exam is unremarkable. No scleral icterus . Neck is without jugular venous distension, thyromegaly, or carotid bruits. Lungs decreased air entry. Cardiac exam reveals regular rate and Rhythm. Abdominal exam reveals normal bowel sounds, nontender, no organomegaly. Extremities are nonedematous and both femoral and pedal pulses are normal. MANAGER SURGERY: Alert and oriented 3. No focal weakness. - Constitutional Vitals: Temp Pulse Resp BP Pulse Ox 98.6 F 89 33 H 142/80 92 12/31/20 06:47 12/31/20 10:30 12/31/20 10:30 12/31/20 10:30 12/31/20 10:30 General appearance: Present: mild distress, well-nourished HEART Score - HEART Score Troponin: Troponin T < 0.010 ng/mL (0.00-0.029) 12/31/20 00:57 Results - Labs CBC & Chem 7: 12/31/20 03:13 12/31/20 09:09 Labs: Laboratory Last Values WBC 10.0 K/mm3 (4.5-11.0) 12/31/20 03:13 RBC 3.93 M/mm3 (3.65-5.03) 12/31/20 03:13 Hgb 12.5 gm/dl (10.1-14.3) 12/31/20 03:13 Hct 37.7 % (30.3-42.9) 12/31/20 03:13 MCV 96 fl (79-97) 12/31/20 03:13 MCH 32 pg (28-32) 12/31/20 03:13 MCHC 33 % (30-34) 12/31/20 03:13 RDW 17.8 % (13.2-15.2) H 12/31/20 03:13 Plt Count 337 K/mm3 (140-440) 12/31/20 03:13 Lymph % (Auto) 10.1 % (13.4-35.0) L 12/31/20 03:13 [place] % (Auto) 6.0 % (0.0-7.3) 12/31/20 03:13 Eos % (Auto) 0.0 % (0.0-4.3) 12/31/20 03:13 Baso % (Auto) 0.4 % (0.0-1.8) 12/31/20 03:13 Lymph # (Auto) 1.0 K/mm3 (1.2-5.4) L 12/31/20 03:13 [place] # (Auto) 0.6 K/mm3 (0.0-0.8) 12/31/20 03:13 Eos # (Auto) 0.0 K/mm3 (0.0-0.4) 12/31/20 03:13 Baso # (Auto) 0.0 K/mm3 (0.0-0.1) 12/31/20 03:13 Seg Neutrophils % 83.5 % (40.0-70.0) H 12/31/20 03:13 Seg Neutrophils # 8.4 K/mm3 (1.8-7.7) H 12/31/20 03:13 PT 15.5 Sec. (12.2-14.9) H 12/30/20 20:48 INR 1.25 (0.87-1.13) H 12/30/20 20:48 APTT 31.0 Sec. (24.2-36.6) 12/30/20 20:48 D-Dimer 581.96 ng/mlDDU (0-234) H 12/30/20 20:48 ABG pH 7.294 (7.320-7.450) L 12/31/20 01:25 POC ABG pCO2 41.0 mmHg (32.0-48.0) 12/31/20 01:25 POC ABG pO2 58.4 mmHg (83-108) L 12/31/20 01:25 POC ABG HCO3 19.5 12/31/20 01:25 ABG O2 Saturation 86.9 (0-100) 12/31/20 01:25 POC ABG Base Excess -6.7 12/31/20 01:25 ABG Hemoglobin 13.0 (12.0-17.5) 12/31/20 01:25 ABG Oxyhemoglobin 86.3 (94-98) L 12/31/20 01:25 ABG Methemoglobin 0 (0.0-1.5) 12/31/20 01:25 ABG Sodium 128.4 mmol/L (136.0-145.0) L 12/31/20 01:25 ABG Potassium 5.3 mmol/L (3.40-4.50) H 12/31/20 01:25 ABG Chloride 104.0 mmol/L (98-107) 12/31/20 01:25 ABG Glucose 153 mg/dL (65-95) H 12/31/20 01:25 Carboxyhemoglobin 0.7 (0.5-1.5) 12/31/20 01:25 FiO2 % 100.0 12/31/20 01:25 Sodium 135 mmol/L (137-145) L 12/31/20 09:09 Potassium 5.4 mmol/L (3.6-5.0) H 12/31/20 09:09 Chloride 100.5 mmol/L (98-107) 12/31/20 09:09 Carbon Dioxide 22 mmol/L (22-30) 12/31/20 09:09 Anion Gap 18 mmol/L 12/31/20 09:09 BUN 40 mg/dL (7-17) H 12/31/20 09:09 Creatinine 2.7 mg/dL (0.6-1.2) H 12/31/20 09:09 Estimated GFR 23 ml/min 12/31/20 09:09 BUN/Creatinine Ratio 15 % 12/31/20 09:09 Glucose 177 mg/dL (65-100) H 12/31/20 09:09 Lactic Acid 1.00 mmol/L (0.7-2.0) 12/31/20 00:57 Calcium 8.4 mg/dL (8.4-10.2) 12/31/20 09:09 Ferritin 814.7 ng/mL (10.0-200.0) H 12/30/20 21:02 Total Bilirubin 0.40 mg/dL (0.1-1.2) 12/30/20 20:48 AST 47 units/L (5-40) H 12/30/20 20:48 ALT 22 units/L (7-56) 12/30/20 20:48 Alkaline Phosphatase 68 units/L (35-129) 12/30/20 20:48 Lactate Dehydrogenase 798 units/L (91-180) H 12/30/20 21:02 Total Creatine Kinase 394 units/L (30-135) H 12/30/20 20:48 CK-MB (CK-2) 3.7 ng/mL (0.0-4.0) 12/30/20 20:48 CK-MB (CK-2) Rel Index 0.9 (0-4) 12/30/20 20:48 Troponin T < 0.010 ng/mL (0.00-0.029) 12/31/20 00:57 C-Reactive Protein 15.40 mg/dL (0.00-1.30) H 12/30/20 21:02 NT-Pro-B Natriuret Pep 780.2 pg/mL (0-450) H 12/30/20 21:02 Total Protein 7.6 g/dL (6.3-8.2) 12/30/20 20:48 Albumin 3.1 g/dL (3.9-5) L 12/30/20 20:48 Albumin/Globulin Ratio 0.7 % 12/30/20 20:48 Procalcitonin 35.23 ng/mL (<0.15) 12/30/20 21:02 HCG, Qual Negative (Negative) 12/30/20 21:02 Arterial Blood Glucose 153 mg/dL (65-95) H 12/31/20 01:25 Arterial Blood Ionized Calcium 4.4 mg/dL (4.6-5.3) L 12/31/20 01:25 Microbiology: Microbiology 12/30/20 21:18 Peripheral/Venous Blood Culture - Preliminary Culture in Progress 12/30/20 21:13 Peripheral/Venous Blood Culture - Preliminary Culture in Progress Active Medications - Current Medications Current Medications: Generic Name Dose Route Start Last Admin Trade Name Freq PRN Reason Stop Dose Admin Albuterol 2.5 mg 12/31/20 10:00 Albuterol 2.5 Mg/3 Ml Nebu IH TIDRT [facility] Amlodipine Besylate 5 mg 12/31/20 10:00 Amlodipine 5 Mg Tab PO DAILY BEN Dexamethasone 6 mg 12/31/20 10:00 Dexamethasone 4 Mg/Ml Vial IV DAILY [facility] Heparin Sodium (Porcine) 5,000 unit 12/31/20 06:00 12/31/20 06:01 Heparin 5,000 Unit/1 Ml Vial SUB-Q 5,000 unit Q8HR [facility] Administration Hydralazine HCl 10 mg 12/30/20 22:47 Hydralazine 20 Mg/1 Ml Inj IV Q6H PRN htn Ceftriaxone Sodium 2 gm in 100 mls @ 200 mls/hr 12/31/20 21:00 Rocephin/Ns 2 Gm/100 Ml IV Q24H [facility] Protocol Azithromycin 500 mg in 250 mls @ 250 mls/hr 12/31/20 21:00 Zithromax/Ns IV Q24H [facility] Protocol Lorazepam 1 mg 12/31/20 11:08 Lorazepam 2 Mg/Ml Vial IV Q6H PRN Agitation Methocarbamol 750 mg 12/30/20 22:46 Methocarbamol 750 Mg Tab PO Q8H PRN back and hip pain Metoprolol Tartrate 25 mg 12/31/20 10:00 Metoprolol Tartrate 25 Mg Tab PO BID BEN Pantoprazole Sodium 40 mg 12/31/20 07:30 Pantoprazole 40 Mg Tab PO QDAC BEN
[2020-12-31] MEDS: amLODIPine 5 MG TAB PO SCH (11:57)
[2020-12-31] MEDS: METOPROLOL TARTRATE 25 MG TAB PO SCH ×2 (11:57→22:17)
[2020-12-31] MEDS: dexAMETHasone 4 MG/ML VIAL IV SCH (11:59)
[2020-12-31] MEDS: PANTOPRAZOLE 40 MG INJ IV SCH (12:01)
--- NOTE | 2020-12-31 12:50 | Vascular Lab Report ---
DUPLEX DOPPLER LOWER EXTREMITY VEINS, BILATERAL INDICATION / CLINICAL INFORMATION: Shortness of breath, elevated D-dimer. TECHNIQUE: Duplex doppler imaging was performed through the veins of both lower extremities using venous michael hemant and other maneuvers. COMPARISON: None available. FINDINGS: RIGHT COMMON FEMORAL VEIN: Negative. RIGHT FEMORAL VEIN: Negative. RIGHT POPLITEAL VEIN: Negative. RIGHT CALF VEINS: Negative. LEFT COMMON FEMORAL VEIN: Negative. LEFT FEMORAL VEIN: Negative. LEFT POPLITEAL VEIN: Negative. LEFT CALF VEINS: Negative. ADDITIONAL FINDINGS: None. IMPRESSION: 1. No sonographic evidence for DVT in either lower extremity. Signer Name: Ashish Santos MD Signed: 12/31/2020 12:45 PM Workstation Name: [id number]
--- NOTE | 2020-12-31 14:42 | Consultation ---
History of Present Illness - Reason for Consult Consult date: 12/31/20 - History of Present Illness 45-year-old female past medical history hypertension, left kidney cancer status post nephrectomy and stomach cancer presented to hospital complaining shortness of breath and dyspnea. He also reports associated fevers, weakness, cough. This began approximately 2 weeks prior to admission. She notes that her symptoms have been progressively worse since onset. She denies receiving COVID- 19 vaccine. She is unsure of any Covid exposures. Febrile to 101.2 with a white count of 10. Covid testing pending. Procalcitonin massively elevated at 35, now in ZHANE on CKD. Cultures no growth so far. Currently on ceftriaxone and azithromycin with Decadron. Requiring BiPAP. Imaging personally viewed: Chest x-ray: Diffuse airspace disease concerning for multifocal pneumonia V/Q scan: Unremarkable exam. Review of systems: Deferred to reduce to the risk of transmission of COVID-19 Past History Past Medical History: hypertension, other (Kidney cancer stomach cancer) Past Surgical History: Other (Left nephrectomy) Medications and Allergies Allergies Allergy/AdvReac Type Severity Reaction Status Date / Time levofloxacin Allergy Unknown Verified 05/05/19 16:44 tramadol Allergy Unknown Verified 12/30/20 21:15 Home Medications Medication Instructions Recorded Confirmed Last Taken Type Metoprolol [Lopressor TAB] 25 mg PO BID #30 tablet 05/05/19 Unknown Rx amLODIPine 5 mg PO DAILY #20 tab 05/05/19 Unknown Rx methOCARBAMOL [Robaxin TAB] 750 mg PO Q8H PRN #20 tablet 05/05/19 Unknown Rx predniSONE [Deltasone] 50 mg PO QDAY #7 tab 05/05/19 Unknown Rx Active Meds: Active Medications Albuterol (Albuterol 2.5 Mg/3 Ml Nebu) 2.5 mg IH TIDRT [facility] Amlodipine Besylate (Amlodipine 5 Mg Tab) 5 mg PO DAILY [facility] Last Admin: 12/31/20 11:57 Dose: Not Given Documented by: Dexamethasone (Dexamethasone 4 Mg/Ml Vial) 6 mg IV DAILY [facility] Last Admin: 12/31/20 11:59 Dose: 6 mg Documented by: Heparin Sodium (Porcine) (Heparin 5,000 Unit/1 Ml Vial) 5,000 unit SUB-Q Q8HR [facility] Last Admin: 12/31/20 06:01 Dose: 5,000 unit Documented by: Hydralazine HCl (Hydralazine 20 Mg/1 Ml Inj) 10 mg IV Q6H PRN PRN Reason: htn Ceftriaxone Sodium (Rocephin/Ns 2 Gm/100 Ml) 2 gm in 100 mls @ 200 mls/hr IV Q24H BEN; Protocol Azithromycin (Zithromax/Ns) 500 mg in 250 mls @ 250 mls/hr IV Q24H BEN; Protocol Lorazepam (Lorazepam 2 Mg/Ml Vial) 1 mg IV Q6H PRN PRN Reason: Agitation Methocarbamol (Methocarbamol 750 Mg Tab) 750 mg PO Q8H PRN PRN Reason: back and hip pain Metoprolol Tartrate (Metoprolol Tartrate 25 Mg Tab) 25 mg PO BID [facility] Last Admin: 12/31/20 11:57 Dose: Not Given Documented by: Pantoprazole Sodium (Pantoprazole 40 Mg Inj) 40 mg IV QDAY [facility] Last Admin: 12/31/20 12:01 Dose: 40 mg Documented by: Physical Examination - Physical Exam Narrative exam: Physical exam deferred to reduce risk of transmission of COVID-19. Please refer to primary team's note. - Constitutional Vitals: Vital Signs Temp Pulse Resp BP Pulse Ox 98.6 F 89 33 H 134/74 92 12/31/20 06:47 12/31/20 11:57 12/31/20 10:30 12/31/20 11:57 12/31/20 10:30 Temperature -Last 24 Hours Temperature 98.6 F Temperature 101.2 F Results - Labs CBC & Chem 7: 12/31/20 03:13 12/31/20 09:09 Labs: Abnormal lab results 12/30/20 12/30/20 12/30/20 Range/Units 20:48 20:48 20:48 RDW 17.3 H (13.2-15.2) % Lymph % (Auto) (13.4-35.0) % Mercer % (Auto) 8.0 H (0.0-7.3) % Lymph # (Auto) (1.2-5.4) K/mm3 Seg Neutrophils % 75.3 H (40.0-70.0) % Seg Neutrophils # (1.8-7.7) K/mm3 PT 15.5 H (12.2-14.9) Sec. INR 1.25 H (0.87-1.13) D-Dimer 581.96 H (0-234) ng/mlDDU ABG pH (7.320-7.450) POC ABG pO2 (83-108) mmHg ABG Oxyhemoglobin (94-98) ABG Sodium (136.0-145.0) mmol/L ABG Potassium (3.40-4.50) mmol/L ABG Glucose (65-95) mg/dL Sodium 125 L (137-145) mmol/L Potassium 5.6 H (3.6-5.0) mmol/L Chloride 93.1 L (98-107) mmol/L Carbon Dioxide 20 L (22-30) mmol/L BUN 38 H (7-17) mg/dL Creatinine 2.9 H (0.6-1.2) mg/dL Glucose 116 H (65-100) mg/dL Calcium (8.4-10.2) mg/dL Ferritin (10.0-200.0) ng/mL AST 47 H (5-40) units/L Lactate Dehydrogenase (91-180) units/L Total Creatine Kinase 394 H (30-135) units/L C-Reactive Protein (0.00-1.30) mg/dL NT-Pro-B Natriuret Pep (0-450) pg/mL Albumin 3.1 L (3.9-5) g/dL Arterial Blood Glucose (65-95) mg/dL Arterial Blood Ionized Calcium (4.6-5.3) mg/dL 12/30/20 12/30/20 12/30/20 Range/Units 21:02 21:02 21:02 RDW (13.2-15.2) % Lymph % (Auto) (13.4-35.0) % Mercer % (Auto) (0.0-7.3) % Lymph # (Auto) (1.2-5.4) K/mm3 Seg Neutrophils % (40.0-70.0) % Seg Neutrophils # (1.8-7.7) K/mm3 PT (12.2-14.9) Sec. INR (0.87-1.13) D-Dimer (0-234) ng/mlDDU ABG pH (7.320-7.450) POC ABG pO2 (83-108) mmHg ABG Oxyhemoglobin (94-98) ABG Sodium (136.0-145.0) mmol/L ABG Potassium (3.40-4.50) mmol/L ABG Glucose (65-95) mg/dL Sodium (137-145) mmol/L Potassium (3.6-5.0) mmol/L Chloride (98-107) mmol/L Carbon Dioxide (22-30) mmol/L BUN (7-17) mg/dL Creatinine (0.6-1.2) mg/dL Glucose 117 H (65-100) mg/dL Calcium (8.4-10.2) mg/dL Ferritin 814.7 H (10.0-200.0) ng/mL AST (5-40) units/L Lactate Dehydrogenase 798 H (91-180) units/L Total Creatine Kinase (30-135) units/L C-Reactive Protein 15.40 H (0.00-1.30) mg/dL NT-Pro-B Natriuret Pep 780.2 H (0-450) pg/mL Albumin (3.9-5) g/dL Arterial Blood Glucose (65-95) mg/dL Arterial Blood Ionized Calcium (4.6-5.3) mg/dL 12/31/20 12/31/20 12/31/20 Range/Units 01:25 03:13 03:13 RDW 17.8 H (13.2-15.2) % Lymph % (Auto) 10.1 L (13.4-35.0) % Mercer % (Auto) (0.0-7.3) % Lymph # (Auto) 1.0 L (1.2-5.4) K/mm3 Seg Neutrophils % 83.5 H (40.0-70.0) % Seg Neutrophils # 8.4 H (1.8-7.7) K/mm3 PT (12.2-14.9) Sec. INR (0.87-1.13) D-Dimer (0-234) ng/mlDDU ABG pH 7.294 L (7.320-7.450) POC ABG pO2 58.4 L (83-108) mmHg ABG Oxyhemoglobin 86.3 L (94-98) ABG Sodium 128.4 L (136.0-145.0) mmol/L ABG Potassium 5.3 H (3.40-4.50) mmol/L ABG Glucose 153 H (65-95) mg/dL Sodium 133 L D (137-145) mmol/L Potassium 6.3 H* (3.6-5.0) mmol/L Chloride 97.6 L (98-107) mmol/L Carbon Dioxide 21 L (22-30) mmol/L BUN 40 H (7-17) mg/dL Creatinine 3.0 H (0.6-1.2) mg/dL Glucose 151 H (65-100) mg/dL Calcium 8.0 L (8.4-10.2) mg/dL Ferritin (10.0-200.0) ng/mL AST (5-40) units/L Lactate Dehydrogenase (91-180) units/L Total Creatine Kinase (30-135) units/L C-Reactive Protein (0.00-1.30) mg/dL NT-Pro-B Natriuret Pep (0-450) pg/mL Albumin (3.9-5) g/dL Arterial Blood Glucose 153 H (65-95) mg/dL Arterial Blood Ionized Calcium 4.4 L (4.6-5.3) mg/dL 12/31/20 Range/Units 09:09 RDW (13.2-15.2) % Lymph % (Auto) (13.4-35.0) % Mercer % (Auto) (0.0-7.3) % Lymph # (Auto) (1.2-5.4) K/mm3 Seg Neutrophils % (40.0-70.0) % Seg Neutrophils # (1.8-7.7) K/mm3 PT (12.2-14.9) Sec. INR (0.87-1.13) D-Dimer (0-234) ng/mlDDU ABG pH (7.320-7.450) POC ABG pO2 (83-108) mmHg ABG Oxyhemoglobin (94-98) ABG Sodium (136.0-145.0) mmol/L ABG Potassium (3.40-4.50) mmol/L ABG Glucose (65-95) mg/dL Sodium 135 L (137-145) mmol/L Potassium 5.4 H (3.6-5.0) mmol/L Chloride (98-107) mmol/L Carbon Dioxide (22-30) mmol/L BUN 40 H (7-17) mg/dL Creatinine 2.7 H (0.6-1.2) mg/dL Glucose 177 H (65-100) mg/dL Calcium (8.4-10.2) mg/dL Ferritin (10.0-200.0) ng/mL AST (5-40) units/L Lactate Dehydrogenase (91-180) units/L Total Creatine Kinase (30-135) units/L C-Reactive Protein (0.00-1.30) mg/dL NT-Pro-B Natriuret Pep (0-450) pg/mL Albumin (3.9-5) g/dL Arterial Blood Glucose (65-95) mg/dL Arterial Blood Ionized Calcium (4.6-5.3) mg/dL Assessment and Plan Cultures: Blood culture no growth so far Covid PCR: Pending A/P: 45-year-old female past medical history hypertension, left kidney cancer status post nephrectomy and stomach cancer now with likely Covid #Bilateral pneumonia: Covid PUI, pending PCR. High suspicion of Covid. Elevated procalcitonin in setting of ZHANE on CKD #Acute hypoxic respiratory failure: Likely secondary to Covid positive. Curren tly on BiPAP #ZHANE on CKD: With history of nephrectomy due to cancer. Renally dose medications. Possibly secondary to COVID-19 if positive. Recs: -Continue empiric ceftriaxone azithromycin for 5 days given elevated procalcitonin (though in the setting of ZHANE) -Continue dexamethasone on reasonable suspicion of Covid -If Covid PCR positive please give remdesivir and Actemra. -Anticoagulation per hospital protocol -Proning as able. Thank you for the consult, we will continue to follow. Sima Galan MD [facility] ([facility] O: [phone] F: [phone]
--- NOTE | 2020-12-31 15:56 | Consultation ---
History of Present Illness - Reason for Consult Consult date: 12/31/20 acute renal failure, hyperkalemia - History of Present Illness History obtained from records as patient is on BIPAP Patient is a 45-year-old female who presented to the ED via EMS with shortness of breath, dyspnea on exertion, fatigue and weakness and cough. Patient reports a 2 week history of generalized malaise. Patient denies fever and chills. Patient denies loss of smell.. Patient denies diarrhea. Patient denies recent travel and sick contacts. She has not received COVID 19 vaccination. He states he has a past medical history of hypertension. Per EMS report, upon arrival to home, the patient was having difficulty breathing and w/ O2 sats in the 50s. She was placed on a nonrebreather and O2 sat improved to 75. Nephrology consulted due to ZHANE - SCr 2.9 at admission. Past History Past Medical History: hypertension, other (Kidney cancer stomach cancer) Past Surgical History: Other (Left nephrectomy) Medications and Allergies Allergies Allergy/AdvReac Type Severity Reaction Status Date / Time levofloxacin Allergy Unknown Verified 05/05/19 16:44 tramadol Allergy Unknown Verified 12/30/20 21:15 Home Medications Medication Instructions Recorded Confirmed Last Taken Type Metoprolol [Lopressor TAB] 25 mg PO BID #30 tablet 05/05/19 Unknown Rx amLODIPine 5 mg PO DAILY #20 tab 05/05/19 Unknown Rx methOCARBAMOL [Robaxin TAB] 750 mg PO Q8H PRN #20 tablet 05/05/19 Unknown Rx predniSONE [Deltasone] 50 mg PO QDAY #7 tab 05/05/19 Unknown Rx Active Meds: Active Medications Albuterol (Albuterol 2.5 Mg/3 Ml Nebu) 2.5 mg IH TIDRT [facility] Amlodipine Besylate (Amlodipine 5 Mg Tab) 5 mg PO DAILY [facility] Last Admin: 12/31/20 11:57 Dose: Not Given Documented by: Dexamethasone (Dexamethasone 4 Mg/Ml Vial) 6 mg IV DAILY [facility] Last Admin: 12/31/20 11:59 Dose: 6 mg Documented by: Heparin Sodium (Porcine) (Heparin 5,000 Unit/1 Ml Vial) 5,000 unit SUB-Q Q8HR [facility] Last Admin: 12/31/20 06:01 Dose: 5,000 unit Documented by: Hydralazine HCl (Hydralazine 20 Mg/1 Ml Inj) 10 mg IV Q6H PRN PRN Reason: htn Ceftriaxone Sodium (Rocephin/Ns 2 Gm/100 Ml) 2 gm in 100 mls @ 200 mls/hr IV Q24H [facility]EN; Protocol Azithromycin (Zithromax/Ns) 500 mg in 250 mls @ 250 mls/hr IV Q24H [facility]; Protocol Lorazepam (Lorazepam 2 Mg/Ml Vial) 1 mg IV Q6H PRN PRN Reason: Agitation Methocarbamol (Methocarbamol 750 Mg Tab) 750 mg PO Q8H PRN PRN Reason: back and hip pain Metoprolol Tartrate (Metoprolol Tartrate 25 Mg Tab) 25 mg PO BID [facility] Last Admin: 12/31/20 11:57 Dose: Not Given Documented by: Pantoprazole Sodium (Pantoprazole 40 Mg Inj) 40 mg IV QDAY [facility] Last Admin: 12/31/20 12:01 Dose: 40 mg Documented by: Review of Systems All systems: negative Exam - Vital Signs Vital signs: Vital Signs Temp Pulse Resp BP Pulse Ox 101.2 F H 116 H 44 H 129/97 78 L 12/30/20 20:37 12/30/20 20:37 12/30/20 20:37 12/30/20 20:37 12/30/20 20:37 - General Appearance General appearance: well-developed, well-nourished EENT: other (BiPAP in place) Respiratory: Decreased Breath Sounds Heart: regular, S1S2 Gastrointestinal: Present: obese. Absent: tenderness, distended Integumentary: no rash, warm and dry Musculoskeletal: Present: other (No edema) Psychiatric: cooperative Results - Lab Results 12/31/20 03:13 12/31/20 09:09 Most recent lab results ABG pH 7.294 (7.320-7.450) L 12/31/20 01:25 ABG O2 Saturation 86.9 (0-100) 12/31/20 01:25 Calcium 8.4 mg/dL (8.4-10.2) 12/31/20 09:09 Assessment and Plan Impression: * Acute kidney injury due to COVID related ATN vs underlying CKD --SCr 1.6mg/dL in 2019 * Acute hypoxic respiratory failure secondary to COVID PNA * COVID 19 * Hyperkalemia * Hypertension Plan: * No acute indication for renal replacement therapy at this time. Continue medical management. However, it is noted that patient has been refusing care (refusal to wear BiPAP and refusal of medical mgmt of hyperK noted) * Renal prognosis is guarded * Management of COVID 19 per ID/primary team * Continue antiHTN medications * Dose medications for renal function * Avoid potential nephrotoxins * AM labs ordered
[2020-12-31] MEDS: oxyCODONE /ACETAMINOPHEN 5-325MG TAB PO PRN (19:26)
[2020-12-31] MEDS: cefTRIAXone/NS 2 GM/100 ML 2 GM/100 ML BAG IV SCH (21:27)
[2020-12-31] MEDS: AZITHROMYCIN/NS 500 MG/250 ML 500 MG/250 ML BAG IV SCH (21:27)
[2021-01-01 05:31] LABS: Basophils % (Auto) 0.4 % (0.0-1.8); Hemoglobin 11.9 gm/dl (10.1-14.3); Lymphocytes # (Auto) 0.8 K/mm3 (1.2-5.4); Mean Corpuscular HGB Conc 33 % (30-34); Mean Corpuscular Volume 95 fl (79-97); Monocytes # (Auto) 0.6 K/mm3 (0.0-0.8); Monocytes % (Auto) 5.2 % (0.0-7.3); Platelet Count 342 K/mm3 (140-440); Red Blood Count 3.81 M/mm3 (3.65-5.03); Red Cell Distribution Width 17.2 % (13.2-15.2)
[2021-01-01] MEDS: HEPARIN 5,000 UNIT/1 ML VIAL SUB-Q SCH ×3 (06:00→21:33)
[2021-01-01 06:03] LABS: Albumin 3.5 g/dL (3.9-5)
--- NOTE | 2021-01-01 08:33 | Progress Note ---
Assessment and Plan Assessment and plan: (1) Person under investigation for COVID-19 Status: Acute Plan to address problem: Admit the patient to the ICU. We will put the patient on BiPAP. DuoNeb by nebulizer every 4 hours as needed. Rocephin 2 g IV daily and Zithromax 500 IV daily. Decadron 6 mg IV daily. We will send the Covid PCR. Do the blood cultures sputum culture. Infectious diseases on consulted. Follow the marker of Covid. Also please follow the result of VQ scan. (2) Acute respiratory failure Status: Acute Plan to address problem: Patient is on BiPAP. DuoNeb by nebulizer every 4 hours as needed. Rocephin 2 g IV daily and Zithromax 500 mg IV daily. Decadron 6 mg IV daily. Follow Covid PCR and Covid marker. Consult pulmonary if needed (3) Hypertension Status: Acute Plan to address problem: Hydralazine 10 mg IV every 6 hours as needed. We will monitor the blood pressure closely (4) Cough Status: Acute Plan to address problem: Robitussin-DM 10 mL p.o. every 6 hours as needed for cough. (5) Fever Status: Acute Qualifiers: Fever type: unspecified Qualified Code(s): R50.9 - Fever, unspecified Plan to address problem: Tylenol 650 mg p.o. every 6 hours as needed. Rocephin 2 g IV daily and Zithromax 500 mils IV daily. Due to the blood culture and sputum culture (6) Renal failure Status: Acute Qualifiers: Renal failure chronicity: acute Acute renal failure type: unspecified Qualified Code(s): N17.9 - Acute kidney failure, unspecified Plan to address problem: Patient got normal saline 1 L fluid bolus in the ER. Avoid nephrotoxic drug. Patient has history of left nephrectomy. We consulted nephrology to see the patient. Recheck BMP in the morning (7) Hyperkalemia Status: Acute Plan to address problem: Kayexalate 30 g p.o. x1 dose. We will recheck the BMP in the morning. Reconsult nephrology for evaluation (8) DVT prophylaxis Status: Acute Plan to address problem: Heparin 5000 units subcu every 8 hours for DVT prophylaxis. Protonix 40 mg p.o. daily for GI prophylaxis. Patient is a full code 12/31/2020 -Severe sepsis with multiorgan dysfunction; continue IV antibiotics and IV fluids -PUI; dexamethasone, ID consult and pending results. -Acute hypoxic respiratory failure; patient is on BiPAP. Pulmonary consulted. Nebulizer treatment -ZHANE with hyperkalemia; patient was given Kayexalate. Patient refused calcium and insulin with dextrose. Nephrology consulted. -Patient is critically sick and she was agitated and tries to go home. ER doctor discussed with the daughter and patient wants to stay. I put the patient on Ativan as needed. 01/01/2021 -Patient Covid test is positive and is on dexamethasone and remdesivir. On empiric antibiotic. ID is following -Acute hypoxic respiratory failure, was on BiPAP yesterday and currently on high flow oxygen 40 L. Nebulizer treatment. -ZHANE; due to the above and improving. Hyperkalemia improved with Kayexalate.. Nephrology consult appreciated. I have seen and evaluated the patient and have explained the patient she wanted remdesivir, she did not say yes or no. I repeatedly asked good but she did not give me an answer. Patient wants to be transferred to [place] but there is no indication to transfer the patient to [place]. If they find a physician who called me to accept the patient I will gladly transfer the patient. I will not initiate the transfer. Patient is not happy, hostile to the medical staff including me. Dr. Donato discussed with the patient's son and mother and explained the situation. I Also discussed with Dr. Donato. The high probability of a clinically significant, sudden or life threatening deterioration of the [respiratory, nephrology] system(s) required my full and direct attention, intervention and personal management. The aggregate critical care time was [35] minutes. This time is in addition to time spent performing reported procedures but includes the following: [x] Data Review and interpretation [x] Patient assessment and monitoring of vital signs [x] Documentation [x] Medication orders and management History Interval history: Patient was seen and evaluated this morning Patient was on 40 L of high flow oxygen, saturation was 90% Hospitalist Physical - Physical exam Narrative exam: In cardiopulmonary distress, . The patient is morbidly obese. Vital signs as documented. Head exam is unremarkable. No scleral icterus . Neck is without jugular venous distension, thyromegaly, or carotid bruits. Lungs decreased air entry. Cardiac exam reveals regular rate and Rhythm. Abdominal exam reveals normal bowel sounds, nontender, no organomegaly. Extremities are nonedematous and both femoral and pedal pulses are normal. [employer]: Alert and oriented 3. No focal weakness. - Constitutional Vitals: Temp Pulse Resp BP Pulse Ox 97.9 F 79 26 H 138/85 90 01/01/21 03:48 01/01/21 02:00 01/01/21 02:00 01/01/21 02:00 01/01/21 07:14 General appearance: Present: mild distress, well-nourished HEART Score - HEART Score Troponin: Troponin T < 0.010 ng/mL (0.00-0.029) 12/31/20 00:57 Results - Labs CBC & Chem 7: 01/01/21 05:04 01/01/21 05:04 Labs: Laboratory Last Values WBC 11.3 K/mm3 (4.5-11.0) H 01/01/21 05:04 RBC 3.81 M/mm3 (3.65-5.03) 01/01/21 05:04 Hgb 11.9 gm/dl (10.1-14.3) 01/01/21 05:04 Hct 36.0 % (30.3-42.9) 01/01/21 05:04 MCV 95 fl (79-97) 01/01/21 05:04 MCH 31 pg (28-32) 01/01/21 05:04 MCHC 33 % (30-34) 01/01/21 05:04 RDW 17.2 % (13.2-15.2) H 01/01/21 05:04 Plt Count 342 K/mm3 (140-440) 01/01/21 05:04 Lymph % (Auto) 7.0 % (13.4-35.0) L 01/01/21 05:04 Woods % (Auto) 5.2 % (0.0-7.3) 01/01/21 05:04 Eos % (Auto) 0.0 % (0.0-4.3) 01/01/21 05:04 Baso % (Auto) 0.4 % (0.0-1.8) 01/01/21 05:04 Lymph # (Auto) 0.8 K/mm3 (1.2-5.4) L 01/01/21 05:04 Woods # (Auto) 0.6 K/mm3 (0.0-0.8) 01/01/21 05:04 Eos # (Auto) 0.0 K/mm3 (0.0-0.4) 01/01/21 05:04 Baso # (Auto) 0.0 K/mm3 (0.0-0.1) 01/01/21 05:04 Seg Neutrophils % 87.4 % (40.0-70.0) H 01/01/21 05:04 Seg Neutrophils # 9.9 K/mm3 (1.8-7.7) H 01/01/21 05:04 PT 15.5 Sec. (12.2-14.9) H 12/30/20 20:48 INR 1.25 (0.87-1.13) H 12/30/20 20:48 APTT 31.0 Sec. (24.2-36.6) 12/30/20 20:48 D-Dimer 581.96 ng/mlDDU (0-234) H 12/30/20 20:48 ABG pH 7.294 (7.320-7.450) L 12/31/20 01:25 POC ABG pCO2 41.0 mmHg (32.0-48.0) 12/31/20 01:25 POC ABG pO2 58.4 mmHg (83-108) L 12/31/20 01:25 POC ABG HCO3 19.5 12/31/20 01:25 ABG O2 Saturation 86.9 (0-100) 12/31/20 01:25 POC ABG Base Excess -6.7 12/31/20 01:25 ABG Hemoglobin 13.0 (12.0-17.5) 12/31/20 01:25 ABG Oxyhemoglobin 86.3 (94-98) L 12/31/20 01:25 ABG Methemoglobin 0 (0.0-1.5) 12/31/20 01:25 ABG Sodium 128.4 mmol/L (136.0-145.0) L 12/31/20 01:25 ABG Potassium 5.3 mmol/L (3.40-4.50) H 12/31/20 01:25 ABG Chloride 104.0 mmol/L (98-107) 12/31/20 01:25 ABG Glucose 153 mg/dL (65-95) H 12/31/20 01:25 Carboxyhemoglobin 0.7 (0.5-1.5) 12/31/20 01:25 FiO2 % 100.0 12/31/20 01:25 Sodium 136 mmol/L (137-145) L 01/01/21 05:04 Potassium 5.0 mmol/L (3.6-5.0) 01/01/21 05:04 Chloride 101.3 mmol/L (98-107) 01/01/21 05:04 Carbon Dioxide 25 mmol/L (22-30) 01/01/21 05:04 Anion Gap 15 mmol/L 01/01/21 05:04 BUN 37 mg/dL (7-17) H 01/01/21 05:04 Creatinine 1.9 mg/dL (0.6-1.2) H 01/01/21 05:04 Estimated GFR 35 ml/min 01/01/21 05:04 BUN/Creatinine Ratio 19 % 01/01/21 05:04 Glucose 165 mg/dL (65-100) H 01/01/21 05:04 POC Glucose 177 mg/dL (70-105) H 12/31/20 10:15 Lactic Acid 1.00 mmol/L (0.7-2.0) 12/31/20 00:57 Calcium 9.0 mg/dL (8.4-10.2) 01/01/21 05:04 Ferritin 814.7 ng/mL (10.0-200.0) H 12/30/20 21:02 Total Bilirubin 0.30 mg/dL (0.1-1.2) 01/01/21 05:04 AST 26 units/L (5-40) 01/01/21 05:04 ALT 21 units/L (7-56) 01/01/21 05:04 Alkaline Phosphatase 67 units/L (35-129) 01/01/21 05:04 Lactate Dehydrogenase 798 units/L (91-180) H 12/30/20 21:02 Total Creatine Kinase 394 units/L (30-135) H 12/30/20 20:48 CK-MB (CK-2) 3.7 ng/mL (0.0-4.0) 12/30/20 20:48 CK-MB (CK-2) Rel Index 0.9 (0-4) 12/30/20 20:48 Troponin T < 0.010 ng/mL (0.00-0.029) 12/31/20 00:57 C-Reactive Protein 15.40 mg/dL (0.00-1.30) H 12/30/20 21:02 NT-Pro-B Natriuret Pep 780.2 pg/mL (0-450) H 12/30/20 21:02 Total Protein 6.7 g/dL (6.3-8.2) 01/01/21 05:04 Albumin 3.5 g/dL (3.9-5) L 01/01/21 05:04 Albumin/Globulin Ratio 1.1 % 01/01/21 05:04 Procalcitonin 35.23 ng/mL (<0.15) 12/30/20 21:02 HCG, Qual Negative (Negative) 12/30/20 21:02 Arterial Blood Glucose 153 mg/dL (65-95) H 12/31/20 01:25 Arterial Blood Ionized Calcium 4.4 mg/dL (4.6-5.3) L 12/31/20 01:25 Coronavirus (PCR) Positive (Negative) A 12/31/20 08:30 Microbiology: Microbiology 12/30/20 21:18 Peripheral/Venous Blood Culture - Preliminary NO GROWTH AFTER 24 HOURS 12/30/20 21:13 Peripheral/Venous Blood Culture - Preliminary NO GROWTH AFTER 24 HOURS Suarez/IV: Voiding Method External Female Catheter Active Medications - Current Medications Current Medications: Generic Name Dose Route Start Last Admin Trade Name Freq PRN Reason Stop Dose Admin Albuterol 2.5 mg 12/31/20 10:00 12/31/20 20:35 Albuterol 2.5 Mg/3 Ml Nebu IH Not Given TIDRT [facility]EN Amlodipine Besylate 5 mg 12/31/20 10:00 12/31/20 11:57 Amlodipine 5 Mg Tab PO Not Given DAILY BEN Dexamethasone 6 mg 12/31/20 10:00 12/31/20 11:59 Dexamethasone 4 Mg/Ml Vial IV 6 mg DAILY [facility]EN Administration Heparin Sodium (Porcine) 5,000 unit 12/31/20 06:00 01/01/21 06:00 Heparin 5,000 Unit/1 Ml Vial SUB-Q Not Given Q8HR [facility] Hydralazine HCl 10 mg 12/30/20 22:47 Hydralazine 20 Mg/1 Ml Inj IV Q6H PRN htn Ceftriaxone Sodium 2 gm in 100 mls @ 200 mls/hr 12/31/20 21:00 12/31/20 21:27 Rocephin/Ns 2 Gm/100 Ml IV 200 mls/hr Q24H [facility]EN Administration Protocol Azithromycin 500 mg in 250 mls @ 250 mls/hr 12/31/20 21:00 12/31/20 21:27 Zithromax/Ns IV 250 mls/hr Q24H [facility]EN Administration Protocol REMDESIVIR 200 mg/ Sodium 250 mls @ 500 mls/hr 01/01/21 10:00 Chloride IV 01/01/21 10:29 ONCE ONE REMDESIVIR 100 mg/ Sodium 250 mls @ 500 mls/hr 01/02/21 21:00 Chloride IV 01/05/21 21:29 [id number] BEN Lorazepam 1 mg 12/31/20 11:30 Lorazepam 2 Mg/Ml Vial IV Q6H PRN Agitation Methocarbamol 750 mg 12/30/20 22:46 Methocarbamol 750 Mg Tab PO Q8H PRN back and hip pain Metoprolol Tartrate 25 mg 12/31/20 10:00 12/31/20 22:17 Metoprolol Tartrate 25 Mg Tab PO Not Given BID BEN Oxycodone/Acetaminophen 2 tab 12/31/20 18:57 12/31/20 19:26 Oxycodone /Acetaminophen 5-325mg Tab PO 2 tab Q6H PRN Administration Pain, Moderate (4-6) Pantoprazole Sodium 40 mg 12/31/20 12:00 12/31/20 12:01 Pantoprazole 40 Mg Inj IV 40 mg QDAY BEN Administration Sodium Chloride 50 ml 01/01/21 10:00 Sodium Chloride 0.9% 50 Ml Ivpb IV 01/05/21 21:01 [email or web address]
[2021-01-01] MEDS: ALBUTEROL 2.5 MG/3 ML NEBU IH SCH ×2 (08:39→13:52)
[2021-01-01] MEDS: PANTOPRAZOLE 40 MG INJ IV SCH ×2 (09:21→12:06)
[2021-01-01] MEDS: dexAMETHasone 4 MG/ML VIAL IV SCH ×2 (09:22→10:53)
[2021-01-01] MEDS: REMDESIVIR 200 MG in SODIUM CHLORIDE 0.9% 250ML 250 ML IV ONE ×3 (09:22→12:05)
[2021-01-01] MEDS ORDERED: TOCILIZUMAB 800 MG in SODIUM CHLORIDE 0.9% 100 ML IV ONE ×2 (10:00→14:00)
[2021-01-01] MEDS ORDERED: REMDESIVIR 100 MG VIAL IV ONE (10:00)
[2021-01-01] MEDS: amLODIPine 5 MG TAB PO SCH (10:51)
[2021-01-01] MEDS: METOPROLOL TARTRATE 25 MG TAB PO SCH ×3 (10:52→21:33)
[2021-01-01] MEDS: SODIUM CHLORIDE 0.9% 50 ML IVPB IV SCH ×2 (10:52→12:06)
--- NOTE | 2021-01-01 10:57 | Event Note ---
Date: 01/01/21 Patient threatening to leave AMA as she does not want to be at [facility]. She attempted to leave yesterday but then decided to stay. This am now she is threatening to leave again. I have spoken with her son over the phone as well as the mother. Dr. Lacey has been in to speak with the patient several times. I have explained the risk of leaving against medical advice. The patient is now asking/demanding a transfer to [place]. I have explained to the mother, who states we are trying to hold the patient hostage, that transfers do not work that way when patient is requesting transfer. At this moment, clinically we (the physicians and the hospital) do not need or feel the need to transfer the patient as [place] would not do anything differently than what we are doing. The mother and other family have called the transfer line themselves apparently several times and have been told we have to initiate the transfer, which is true, however, as stated above, clinically there is no indication for transfer at this time. I have explained to the family that if they can find a physician to accept her at [facility], we will gladly initiate the transfer on our end. We will continue to attempt to treat this patient as much as she will allow.
[2021-01-01] MEDS: ACETAMINOPHEN 325 MG TAB PO PRN ×2 (12:07→23:21)
--- NOTE | 2021-01-01 18:05 | Progress Note ---
Assessment and Plan Impression: * Acute kidney injury due to COVID related ATN vs underlying CKD --SCr 1.6mg/dL in 2019 * Acute hypoxic respiratory failure secondary to COVID PNA * COVID 19 * Hyperkalemia - resolved * Hypertension Plan: * Attempted to discuss labs with patient. When discussing labs and decline in renal function noted at admission, patient very flippant. Stating, "I knew that before I came here". "I'm not worried about that". * Renal function improved - SCr is trending down; baseline unknown - patient reports hx of CKD. No acute indication for renal replacement therapy at this time. Continue medical management. * Management of COVID 19 per ID/primary team * Continue antiHTN medications * Dose medications for renal function * Avoid potential nephrotoxins * AM labs ordered Subjective Date of service: 01/01/21 Interval history: Patient can be heard yelling from room prior to my entry. She has no complaints at time of exam. Requesting a manufacturers representative for her phone. She is currently on high flow oxygen. Objective - Vital Signs Vital signs: Vital Signs - 12hr 01/01/21 01/01/21 01/01/21 07:14 08:39 11:00 Temperature Pulse Rate 82 Pulse Rate [ 81 Bilateral Throughout] Respiratory Rate Respiratory 28 H Rate [Bilateral Throughout] Blood Pressure O2 Sat by Pulse 90 91 90 Oximetry 01/01/21 01/01/21 01/01/21 12:00 12:07 13:52 Temperature 97.7 F Pulse Rate Pulse Rate [ 70 Bilateral Throughout] Respiratory 28 H Rate Respiratory 24 Rate [Bilateral Throughout] Blood Pressure O2 Sat by Pulse Oximetry 01/01/21 01/01/21 01/01/21 16:00 16:17 17:58 Temperature Pulse Rate 76 78 Pulse Rate [ Bilateral Throughout] Respiratory 29 H Rate Respiratory Rate [Bilateral Throughout] Blood Pressure 144/95 O2 Sat by Pulse 89 96 Oximetry - General Appearance General appearance: well-developed, well-nourished Respiratory: Present: Decreased Breath Sounds Cardiology: regular, S1S2 Gastrointestinal: obese Integumentary: no rash, warm and dry Psychiatric: cooperative - Lab 01/01/21 05:04 01/01/21 05:04 Most recent lab results ABG pH 7.294 (7.320-7.450) L 12/31/20 01:25 ABG O2 Saturation 86.9 (0-100) 12/31/20 01:25 Calcium 9.0 mg/dL (8.4-10.2) 01/01/21 05:04 Medications & Allergies - Medications Allergies/Adverse Reactions: Allergies levofloxacin Allergy (Verified 05/05/19 16:44) Unknown tramadol Allergy (Verified 12/30/20 21:15) Unknown Home Medications: Home Medications Medication Instructions Recorded Confirmed Last Taken Type Metoprolol [Lopressor TAB] 25 mg PO BID #30 tablet 05/05/19 Unknown Rx amLODIPine 5 mg PO DAILY #20 tab 05/05/19 Unknown Rx methOCARBAMOL [Robaxin TAB] 750 mg PO Q8H PRN #20 tablet 05/05/19 Unknown Rx predniSONE [Deltasone] 50 mg PO QDAY #7 tab 05/05/19 Unknown Rx Active Medications: Generic Name Dose Route Start Last Admin Trade Name Freq PRN Reason Stop Dose Admin Acetaminophen 650 mg 01/01/21 11:57 01/01/21 12:07 Acetaminophen 325 Mg Tab PO 650 mg Q6H PRN Administration Pain, Mild (1-3) Albuterol 2.5 mg 12/31/20 10:00 01/01/21 13:52 Albuterol 2.5 Mg/3 Ml Nebu IH 2.5 mg TIDRT BEN Administration Amlodipine Besylate 5 mg 12/31/20 10:00 01/01/21 10:51 Amlodipine 5 Mg Tab PO Not Given DAILY BEN Dexamethasone 6 mg 12/31/20 10:00 01/01/21 10:53 Dexamethasone 4 Mg/Ml Vial IV Not Given DAILY BEN Heparin Sodium (Porcine) 5,000 unit 12/31/20 06:00 01/01/21 15:37 Heparin 5,000 Unit/1 Ml Vial SUB-Q 5,000 unit Q8HR BEN Administration Hydralazine HCl 10 mg 12/30/20 22:47 Hydralazine 20 Mg/1 Ml Inj IV Q6H PRN htn Ceftriaxone Sodium 2 gm in 100 mls @ 200 mls/hr 12/31/20 21:00 12/31/20 21:27 Rocephin/Ns 2 Gm/100 Ml IV 01/03/21 21:29 200 mls/hr Q24H BEN Administration Protocol Azithromycin 500 mg in 250 mls @ 250 mls/hr 12/31/20 21:00 12/31/20 21:27 Zithromax/Ns IV 01/03/21 21:59 250 mls/hr Q24H BEN Administration Protocol REMDESIVIR 100 mg/ Sodium 250 mls @ 500 mls/hr 01/02/21 21:00 Chloride IV 01/05/21 21:29 Q24HR@2100 BEN TOCILIZUMAB 800 mg/ Sodium 140 mls @ 120 mls/hr 01/01/21 14:00 Chloride IV 01/01/21 15:09 ONCE ONE Lorazepam 1 mg 12/31/20 11:30 Lorazepam 2 Mg/Ml Vial IV Q6H PRN Agitation Methocarbamol 750 mg 12/30/20 22:46 Methocarbamol 750 Mg Tab PO Q8H PRN back and hip pain Metoprolol Tartrate 25 mg 12/31/20 10:00 01/01/21 16:17 Metoprolol Tartrate 25 Mg Tab PO 25 mg BID BEN Administration Oxycodone/Acetaminophen 2 tab 12/31/20 18:57 12/31/20 19:26 Oxycodone /Acetaminophen 5-325mg Tab PO 2 tab Q6H PRN Administration Pain, Moderate (4-6) Pantoprazole Sodium 40 mg 12/31/20 12:00 01/01/21 12:06 Pantoprazole 40 Mg Inj IV Not Given QDAY BEN Sodium Chloride 50 ml 01/01/21 10:00 01/01/21 12:06 Sodium Chloride 0.9% 50 Ml Ivpb IV 01/05/21 21:01 50 ml Q24HR@2100 BEN Administration
[2021-01-01] MEDS: cefTRIAXone/NS 2 GM/100 ML 2 GM/100 ML BAG IV SCH (20:51)
[2021-01-01] MEDS: AZITHROMYCIN/NS 500 MG/250 ML 500 MG/250 ML BAG IV SCH (21:33)
[2021-01-01] MEDS: ALBUTEROL 8.5 GM MDI INHALATION IH SCH ×3 (22:21→23:07)
[2021-01-01] MEDS: LORazepam 2 MG/ML VIAL IV PRN (23:26)
[2021-01-02] MEDS: HEPARIN 5,000 UNIT/1 ML VIAL SUB-Q SCH ×3 (05:31→21:36)
[2021-01-02] MEDS: ALBUTEROL 8.5 GM MDI INHALATION IH SCH ×3 (09:05→19:58)
--- NOTE | 2021-01-02 09:14 | Progress Note ---
Assessment and Plan Assessment and plan: (1) Person under investigation for COVID-19 Status: Acute Plan to address problem: Admit the patient to the ICU. We will put the patient on BiPAP. DuoNeb by nebulizer every 4 hours as needed. Rocephin 2 g IV daily and Zithromax 500 IV daily. Decadron 6 mg IV daily. We will send the Covid PCR. Do the blood cultures sputum culture. Infectious diseases on consulted. Follow the marker of Covid. Also please follow the result of VQ scan. (2) Acute respiratory failure Status: Acute Plan to address problem: Patient is on BiPAP. DuoNeb by nebulizer every 4 hours as needed. Rocephin 2 g IV daily and Zithromax 500 mg IV daily. Decadron 6 mg IV daily. Follow Covid PCR and Covid marker. Consult pulmonary if needed (3) Hypertension Status: Acute Plan to address problem: Hydralazine 10 mg IV every 6 hours as needed. We will monitor the blood pressure closely (4) Cough Status: Acute Plan to address problem: Robitussin-DM 10 mL p.o. every 6 hours as needed for cough. (5) Fever Status: Acute Qualifiers: Fever type: unspecified Qualified Code(s): R50.9 - Fever, unspecified Plan to address problem: Tylenol 650 mg p.o. every 6 hours as needed. Rocephin 2 g IV daily and Zithromax 500 mils IV daily. Due to the blood culture and sputum culture (6) Renal failure Status: Acute Qualifiers: Renal failure chronicity: acute Acute renal failure type: unspecified Qualified Code(s): N17.9 - Acute kidney failure, unspecified Plan to address problem: Patient got normal saline 1 L fluid bolus in the ER. Avoid nephrotoxic drug. Patient has history of left nephrectomy. We consulted nephrology to see the patient. Recheck BMP in the morning (7) Hyperkalemia Status: Acute Plan to address problem: Kayexalate 30 g p.o. x1 dose. We will recheck the BMP in the morning. Reconsult nephrology for evaluation (8) DVT prophylaxis Status: Acute Plan to address problem: Heparin 5000 units subcu every 8 hours for DVT prophylaxis. Protonix 40 mg p.o. daily for GI prophylaxis. Patient is a full code 12/31/2020 -Severe sepsis with multiorgan dysfunction; continue IV antibiotics and IV fluids -PUI; dexamethasone, ID consult and pending results. -Acute hypoxic respiratory failure; patient is on BiPAP. Pulmonary consulted. Nebulizer treatment -ZHANE with hyperkalemia; patient was given Kayexalate. Patient refused calcium and insulin with dextrose. Nephrology consulted. -Patient is critically sick and she was agitated and tries to go home. ER doctor discussed with the daughter and patient wants to stay. I put the patient on Ativan as needed. 01/01/2021 -Patient Covid test is positive and is on dexamethasone and remdesivir. On empiric antibiotic. ID is following -Acute hypoxic respiratory failure, was on BiPAP yesterday and currently on high flow oxygen 40 L. Nebulizer treatment. -ZHANE; due to the above and improving. Hyperkalemia improved with Kayexalate.. Nephrology consult appreciated. I have seen and evaluated the patient and have explained the patient she wanted remdesivir, she did not say yes or no. I repeatedly asked good but she did not give me an answer. Patient wants to be transferred to [place] but there is no indication to transfer the patient to [place]. If they find a physician who called me to accept the patient I will gladly transfer the patient. I will not initiate the transfer. Patient is not happy, hostile to the medical staff including me. Dr. Donato discussed with the patient's son and mother and explained the situation. I Also discussed with Dr. Donato. 01/02/2021 -Patient is on remdesivir and Actemra. Dexamethasone twice daily dose due to patient size. On empiric IV antibiotics. Patient is on high flow oxygen. Pulmonary and ID is following the patient. Patient is willing to stay. Continue current management. The high probability of a clinically significant, sudden or life threatening deterioration of the [respiratory, nephrology] system(s) required my full and direct attention, intervention and personal management. The aggregate critical care time was [35] minutes. This time is in addition to time spent performing reported procedures but includes the following: [x] Data Review and interpretation [x] Patient assessment and monitoring of vital signs [x] Documentation [x] Medication orders and management History Interval history: Patient was seen and evaluated this morning Patient was on 40 L of high flow oxygen, saturation was 95% Hospitalist Physical - Physical exam Narrative exam: In cardiopulmonary distress, . The patient is morbidly obese. Vital signs as documented. Head exam is unremarkable. No scleral icterus . Neck is without jugular venous distension, thyromegaly, or carotid bruits. Lungs decreased air entry. Cardiac exam reveals regular rate and Rhythm. Abdominal exam reveals normal bowel sounds, nontender, no organomegaly. Extremities are nonedematous and both femoral and pedal pulses are normal. 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 No focal weakness. - Constitutional Vitals: Temp Pulse Resp BP Pulse Ox 99.2 F 62 32 H 148/94 93 01/02/21 07:51 01/02/21 06:00 01/02/21 06:00 01/02/21 06:00 01/02/21 06:00 General appearance: Present: mild distress, well-nourished HEART Score - HEART Score Troponin: Troponin T < 0.010 ng/mL (0.00-0.029) 12/31/20 00:57 Results - Labs CBC & Chem 7: 01/01/21 05:04 01/02/21 09:11 Labs: Laboratory Last Values WBC 11.3 K/mm3 (4.5-11.0) H 01/01/21 05:04 RBC 3.81 M/mm3 (3.65-5.03) 01/01/21 05:04 Hgb 11.9 gm/dl (10.1-14.3) 01/01/21 05:04 Hct 36.0 % (30.3-42.9) 01/01/21 05:04 MCV 95 fl (79-97) 01/01/21 05:04 MCH 31 pg (28-32) 01/01/21 05:04 MCHC 33 % (30-34) 01/01/21 05:04 RDW 17.2 % (13.2-15.2) H 01/01/21 05:04 Plt Count 342 K/mm3 (140-440) 01/01/21 05:04 Lymph % (Auto) 7.0 % (13.4-35.0) L 01/01/21 05:04 [place] % (Auto) 5.2 % (0.0-7.3) 01/01/21 05:04 Eos % (Auto) 0.0 % (0.0-4.3) 01/01/21 05:04 Baso % (Auto) 0.4 % (0.0-1.8) 01/01/21 05:04 Lymph # (Auto) 0.8 K/mm3 (1.2-5.4) L 01/01/21 05:04 [place] # (Auto) 0.6 K/mm3 (0.0-0.8) 01/01/21 05:04 Eos # (Auto) 0.0 K/mm3 (0.0-0.4) 01/01/21 05:04 Baso # (Auto) 0.0 K/mm3 (0.0-0.1) 01/01/21 05:04 Seg Neutrophils % 87.4 % (40.0-70.0) H 01/01/21 05:04 Seg Neutrophils # 9.9 K/mm3 (1.8-7.7) H 01/01/21 05:04 PT 15.5 Sec. (12.2-14.9) H 12/30/20 20:48 INR 1.25 (0.87-1.13) H 12/30/20 20:48 APTT 31.0 Sec. (24.2-36.6) 12/30/20 20:48 D-Dimer 581.96 ng/mlDDU (0-234) H 12/30/20 20:48 ABG pH 7.294 (7.320-7.450) L 12/31/20 01:25 POC ABG pCO2 41.0 mmHg (32.0-48.0) 12/31/20 01:25 POC ABG pO2 58.4 mmHg (83-108) L 12/31/20 01:25 POC ABG HCO3 19.5 12/31/20 01:25 ABG O2 Saturation 86.9 (0-100) 12/31/20 01:25 POC ABG Base Excess -6.7 12/31/20 01:25 ABG Hemoglobin 13.0 (12.0-17.5) 12/31/20 01:25 ABG Oxyhemoglobin 86.3 (94-98) L 12/31/20 01:25 ABG Methemoglobin 0 (0.0-1.5) 12/31/20 01:25 ABG Sodium 128.4 mmol/L (136.0-145.0) L 12/31/20 01:25 ABG Potassium 5.3 mmol/L (3.40-4.50) H 12/31/20 01:25 ABG Chloride 104.0 mmol/L (98-107) 12/31/20 01:25 ABG Glucose 153 mg/dL (65-95) H 12/31/20 01:25 Carboxyhemoglobin 0.7 (0.5-1.5) 12/31/20 01:25 FiO2 % 100.0 12/31/20 01:25 Sodium 136 mmol/L (137-145) L 01/01/21 05:04 Potassium 5.0 mmol/L (3.6-5.0) 01/01/21 05:04 Chloride 101.3 mmol/L (98-107) 01/01/21 05:04 Carbon Dioxide 25 mmol/L (22-30) 01/01/21 05:04 Anion Gap 15 mmol/L 01/01/21 05:04 BUN 37 mg/dL (7-17) H 01/01/21 05:04 Creatinine 1.9 mg/dL (0.6-1.2) H 01/01/21 05:04 Estimated GFR 35 ml/min 01/01/21 05:04 BUN/Creatinine Ratio 19 % 01/01/21 05:04 Glucose 165 mg/dL (65-100) H 01/01/21 05:04 POC Glucose 177 mg/dL (70-105) H 12/31/20 10:15 Lactic Acid 1.00 mmol/L (0.7-2.0) 12/31/20 00:57 Calcium 9.0 mg/dL (8.4-10.2) 01/01/21 05:04 Ferritin 814.7 ng/mL (10.0-200.0) H 12/30/20 21:02 Total Bilirubin 0.30 mg/dL (0.1-1.2) 01/01/21 05:04 AST 26 units/L (5-40) 01/01/21 05:04 ALT 21 units/L (7-56) 01/01/21 05:04 Alkaline Phosphatase 67 units/L (35-129) 01/01/21 05:04 Lactate Dehydrogenase 798 units/L (91-180) H 12/30/20 21:02 Total Creatine Kinase 394 units/L (30-135) H 12/30/20 20:48 CK-MB (CK-2) 3.7 ng/mL (0.0-4.0) 12/30/20 20:48 CK-MB (CK-2) Rel Index 0.9 (0-4) 12/30/20 20:48 Troponin T < 0.010 ng/mL (0.00-0.029) 12/31/20 00:57 C-Reactive Protein 15.40 mg/dL (0.00-1.30) H 12/30/20 21:02 NT-Pro-B Natriuret Pep 780.2 pg/mL (0-450) H 12/30/20 21:02 Total Protein 6.7 g/dL (6.3-8.2) 01/01/21 05:04 Albumin 3.5 g/dL (3.9-5) L 01/01/21 05:04 Albumin/Globulin Ratio 1.1 % 01/01/21 05:04 Procalcitonin 35.23 ng/mL (<0.15) 12/30/20 21:02 HCG, Qual Negative (Negative) 12/30/20 21:02 Arterial Blood Glucose 153 mg/dL (65-95) H 12/31/20 01:25 Arterial Blood Ionized Calcium 4.4 mg/dL (4.6-5.3) L 12/31/20 01:25 Coronavirus (PCR) Positive (Negative) A 12/31/20 08:30 Microbiology: Microbiology 12/30/20 21:18 Peripheral/Venous Blood Culture - Preliminary NO GROWTH AFTER 48 HOURS 12/30/20 21:13 Peripheral/Venous Blood Culture - Preliminary NO GROWTH AFTER 48 HOURS Suarez/IV: Voiding Method External Female Catheter Active Medications - Current Medications Current Medications: Generic Name Dose Route Start Last Admin Trade Name Freq PRN Reason Stop Dose Admin Acetaminophen 650 mg 01/01/21 11:57 01/01/21 23:21 Acetaminophen 325 Mg Tab PO 650 mg Q6H PRN Administration Pain, Mild (1-3) Albuterol 2 puff 01/01/21 20:00 01/01/21 23:07 Albuterol 8.5 Gm Mdi Inhalation IH 2 inhalation TID BEN Administration Amlodipine Besylate 5 mg 12/31/20 10:00 01/01/21 10:51 Amlodipine 5 Mg Tab PO Not Given DAILY [facility] Dexamethasone 6 mg 12/31/20 10:00 01/01/21 10:53 Dexamethasone 4 Mg/Ml Vial IV Not Given DAILY [facility] Heparin Sodium (Porcine) 5,000 unit 12/31/20 06:00 01/02/21 05:31 Heparin 5,000 Unit/1 Ml Vial SUB-Q 5,000 unit Q8HR BEN Administration Hydralazine HCl 10 mg 12/30/20 22:47 Hydralazine 20 Mg/1 Ml Inj IV Q6H PRN htn Ceftriaxone Sodium 2 gm in 100 mls @ 200 mls/hr 12/31/20 21:00 01/01/21 20:51 Rocephin/Ns 2 Gm/100 Ml IV 01/03/21 21:29 200 mls/hr Q24H [facility] Administration Protocol Azithromycin 500 mg in 250 mls @ 250 mls/hr 12/31/20 21:00 01/01/21 21:33 Zithromax/Ns IV 01/03/21 21:59 250 mls/hr Q24H [facility] Administration Protocol REMDESIVIR 100 mg/ Sodium 250 mls @ 500 mls/hr 01/02/21 21:00 Chloride IV 01/05/21 21:29 Q24HR@2100 BEN TOCILIZUMAB 800 mg/ Sodium 140 mls @ 120 mls/hr 01/01/21 14:00 Chloride IV 01/01/21 15:09 ONCE ONE Lorazepam 1 mg 12/31/20 11:30 01/01/21 23:26 Lorazepam 2 Mg/Ml Vial IV 1 mg Q6H PRN Administration Agitation Methocarbamol 750 mg 12/30/20 22:46 Methocarbamol 750 Mg Tab PO Q8H PRN back and hip pain Metoprolol Tartrate 25 mg 12/31/20 10:00 01/01/21 21:33 Metoprolol Tartrate 25 Mg Tab PO 25 mg BID BEN Administration Oxycodone/Acetaminophen 2 tab 12/31/20 18:57 12/31/20 19:26 Oxycodone /Acetaminophen 5-325mg Tab PO 2 tab Q6H PRN Administration Pain, Moderate (4-6) Pantoprazole Sodium 40 mg 12/31/20 12:00 01/01/21 12:06 Pantoprazole 40 Mg Inj IV Not Given QDAY [facility] Sodium Chloride 50 ml 01/01/21 10:00 01/01/21 12:06 Sodium Chloride 0.9% 50 Ml Ivpb IV 01/05/21 21:01 50 ml Q24HR@2100 [facility] Administration Nutrition/Malnutrition Assess - Dietary Evaluation Nutrition/Malnutrition Findings: Nutrition Notes Start: 01/01/21 08:33 Freq: Status: Active Protocol: Document 01/01/21 08:33 CW (Rec: 01/01/21 08:39 CW [id number]) Nutrition Notes Need for Assessment generated from: MD Order Initial or Follow up Brief Note Current Diagnosis Acute Kidney Injury, Hypertension,Respiratory Failure Other Pertinent Diagnosis SOB, Covid PUI, Kidney & stomach CA Current Diet nut current diet order Labs/Tests Na 136 K 5 BUN 37 Cr 1.9 BG 165 Pertinent Medications Decadron Humulin Height 5 ft 4 in Weight 136 kg [place] Body Weight (kg) 54.54 BMI 51.5 Weight Status Morbidly Obese Subjective/Other Information MD consult for diet order. D/t renal and BG related labs recommend renal consistent carbohydrate diet. Burn Absent Trauma Absent Nutrition Intervention Change Diet Order: renal consistent carbohydrate diet Anticipated Discharge Needs: renal consistent carbohydrate diet Follow-Up By: 01/03/21 Additional Comments follow up for intakes
[2021-01-02] MEDS: dexAMETHasone 4 MG/ML VIAL IV SCH ×2 (09:33→21:35)
[2021-01-02] MEDS: amLODIPine 5 MG TAB PO SCH (09:33)
[2021-01-02] MEDS: METOPROLOL TARTRATE 25 MG TAB PO SCH ×2 (09:33→21:36)
[2021-01-02] MEDS: PANTOPRAZOLE 40 MG INJ IV SCH (09:34)
--- NOTE | 2021-01-02 10:13 | Event Note ---
Date: 01/02/21 Patient now willing to stay. On HFNC with sats in the mid 90's. Remdesivir and Actemra ordered. Increased steroids to BID given patient size. Prone as tolerated. Suggest lasix therapy IV to help with volume status. Guarded Prognosis.
[2021-01-02 11:15] LABS: Calcium 9.3 mg/dL (8.4-10.2)
--- NOTE | 2021-01-02 13:23 | Progress Note ---
Assessment and Plan Impression: * Acute kidney injury due to COVID related ATN vs underlying CKD --SCr 1.6mg/dL in 2019 * Acute hypoxic respiratory failure secondary to COVID PNA * COVID 19 * Hyperkalemia - resolved * Hypertension Plan: * Renal function is stable - SCr near baseline labs from 2019 * No acute indication for renal replacement therapy at this time. Continue conservative management. * Diuresis prn * Management of COVID 19 per ID/primary team * Continue antiHTN medications * Dose medications for renal function * Avoid potential nephrotoxins * AM labs ordered Subjective Date of service: 01/02/21 Interval history: No acute events overnight. She remains on high flow oxygen. Objective - Exam Narrative Exam: Deferred in setting of pandemic to reduce transmission of COVID 19. Exam findings of critical care reviewed. - Vital Signs Vital signs: Vital Signs - 12hr 01/02/21 01/02/21 01/02/21 02:00 03:00 03:26 Temperature 98 F Pulse Rate 69 63 Pulse Rate [ Anterior Bilateral Throughout] Respiratory 32 H 31 H Rate Respiratory Rate [Anterior Bilateral Throughout] Blood Pressure 140/91 137/84 O2 Sat by Pulse 96 95 Oximetry 01/02/21 01/02/21 01/02/21 04:00 05:00 06:00 Temperature Pulse Rate 68 65 62 Pulse Rate [ Anterior Bilateral Throughout] Respiratory 31 H 31 H 32 H Rate Respiratory Rate [Anterior Bilateral Throughout] Blood Pressure 135/92 139/90 148/94 O2 Sat by Pulse 94 94 93 Oximetry 01/02/21 01/02/21 01/02/21 07:51 09:05 12:27 Temperature 99.2 F 97.7 F Pulse Rate Pulse Rate [ 71 Anterior Bilateral Throughout] Respiratory Rate Respiratory 22 Rate [Anterior Bilateral Throughout] Blood Pressure O2 Sat by Pulse Oximetry - Lab 01/01/21 05:04 01/02/21 09:11 Most recent lab results ABG pH 7.294 (7.320-7.450) L 12/31/20 01:25 ABG O2 Saturation 86.9 (0-100) 12/31/20 01:25 Calcium 9.3 mg/dL (8.4-10.2) 01/02/21 09:11 Medications & Allergies - Medications Allergies/Adverse Reactions: Allergies levofloxacin Allergy (Verified 05/05/19 16:44) Unknown tramadol Allergy (Verified 12/30/20 21:15) Unknown Home Medications: Home Medications Medication Instructions Recorded Confirmed Last Taken Type Metoprolol [Lopressor TAB] 25 mg PO BID #30 tablet 05/05/19 Unknown Rx amLODIPine 5 mg PO DAILY #20 tab 05/05/19 Unknown Rx methOCARBAMOL [Robaxin TAB] 750 mg PO Q8H PRN #20 tablet 05/05/19 Unknown Rx predniSONE [Deltasone] 50 mg PO QDAY #7 tab 05/05/19 Unknown Rx Active Medications: Generic Name Dose Route Start Last Admin Trade Name Freq PRN Reason Stop Dose Admin Acetaminophen 650 mg 01/01/21 11:57 01/01/21 23:21 Acetaminophen 325 Mg Tab PO 650 mg Q6H PRN Administration Pain, Mild (1-3) Albuterol 2 puff 01/01/21 20:00 01/02/21 09:05 Albuterol 8.5 Gm Mdi Inhalation IH 2 inhalation TID BEN Administration Amlodipine Besylate 5 mg 12/31/20 10:00 01/02/21 09:33 Amlodipine 5 Mg Tab PO Not Given DAILY BEN Dexamethasone 6 mg 01/02/21 22:00 Dexamethasone 4 Mg/Ml Vial IV Q12HR BEN Heparin Sodium (Porcine) 5,000 unit 12/31/20 06:00 01/02/21 05:31 Heparin 5,000 Unit/1 Ml Vial SUB-Q 5,000 unit Q8HR BEN Administration Hydralazine HCl 10 mg 12/30/20 22:47 Hydralazine 20 Mg/1 Ml Inj IV Q6H PRN htn Ceftriaxone Sodium 2 gm in 100 mls @ 200 mls/hr 12/31/20 21:00 01/01/21 20:51 Rocephin/Ns 2 Gm/100 Ml IV 01/03/21 21:29 200 mls/hr Q24H BEN Administration Protocol Azithromycin 500 mg in 250 mls @ 250 mls/hr 12/31/20 21:00 01/01/21 21:33 Zithromax/Ns IV 01/03/21 21:59 250 mls/hr Q24H BEN Administration Protocol REMDESIVIR 100 mg/ Sodium 250 mls @ 500 mls/hr 01/02/21 21:00 Chloride IV 01/05/21 21:29 Q24HR@2100 BEN TOCILIZUMAB 800 mg/ Sodium 140 mls @ 120 mls/hr 01/01/21 14:00 Chloride IV 01/01/21 15:09 ONCE ONE Lorazepam 1 mg 12/31/20 11:30 01/01/21 23:26 Lorazepam 2 Mg/Ml Vial IV 1 mg Q6H PRN Administration Agitation Methocarbamol 750 mg 12/30/20 22:46 Methocarbamol 750 Mg Tab PO Q8H PRN back and hip pain Metoprolol Tartrate 25 mg 12/31/20 10:00 01/02/21 09:33 Metoprolol Tartrate 25 Mg Tab PO 25 mg BID BEN Administration Oxycodone/Acetaminophen 2 tab 12/31/20 18:57 12/31/20 19:26 Oxycodone /Acetaminophen 5-325mg Tab PO 2 tab Q6H PRN Administration Pain, Moderate (4-6) Pantoprazole Sodium 40 mg 12/31/20 12:00 01/02/21 09:34 Pantoprazole 40 Mg Inj IV 40 mg QDAY BEN Administration Sodium Chloride 50 ml 01/01/21 10:00 01/01/21 12:06 Sodium Chloride 0.9% 50 Ml Ivpb IV 01/05/21 21:01 50 ml Q24HR@2100 BEN Administration
--- NOTE | 2021-01-02 14:38 | Progress Note ---
Assessment and Plan Cultures: Blood culture no growth so far Covid PCR: Positive A/P: 45-year-old female past medical history hypertension, left kidney cancer status post nephrectomy and stomach cancer now with likely Covid #Bilateral pneumonia: Covid positive. Elevated procalcitonin in setting of ZHANE on CKD #Acute hypoxic respiratory failure: Likely secondary to Covid positive. Currently on BiPAP #ZHANE on CKD: With history of nephrectomy due to cancer. Renally dose medications. Possibly secondary to COVID-19 if positive. Recs: -Continue empiric ceftriaxone azithromycin for 5 days given elevated procalcitonin (though in the setting of ZHANE) -Continue dexamethasone to complete 10 days. -Started remdesivir, complete 5 days. -Ordered Actemra, not available until tomorrow. -Anticoagulation per hospital protocol -Proning as able. Thank you for the consult, we will continue to follow. Dr. Esteban taking over tomorrow. Sima Galan MD [facility] ([facility]) O: [phone] F: [phone] Subjective Date of service: 01/02/21 Interval history: Afebrile, white count 11.3. Blood cultures no growth so far. On high flow nasal cannula. Objective - Exam Narrative Exam: Physical exam deferred to reduce risk of transmission of COVID-19. Please refer to primary team's note. - Constitutional Vitals: Vital Signs Temp Pulse Resp BP Pulse Ox 97.7 F 72 31 H 134/86 95 01/02/21 12:27 01/02/21 14:01 01/02/21 14:01 01/02/21 14:01 01/02/21 14:01 Temperature -Last 24 Hours Temperature 97.7 F Temperature 99.2 F Temperature 98 F Temperature 98 F Temperature 97.5 F - Labs CBC & Chem 7: 01/01/21 05:04 01/02/21 09:11 Labs: Abnormal lab results 01/02/21 Range/Units 09:11 Chloride 108.5 H (98-107) mmol/L BUN 33 H (7-17) mg/dL Creatinine 1.8 H (0.6-1.2) mg/dL Glucose 102 H (65-100) mg/dL Albumin 3.0 L (3.9-5) g/dL
[2021-01-02] MEDS: ACETAMINOPHEN 325 MG TAB PO PRN (18:19)
[2021-01-02] MEDS: cefTRIAXone/NS 2 GM/100 ML 2 GM/100 ML BAG IV SCH (20:05)
[2021-01-02] MEDS: AZITHROMYCIN/NS 500 MG/250 ML 500 MG/250 ML BAG IV SCH (20:45)
[2021-01-02] MEDS ORDERED: guaiFENesin DM 200/20 MG ORAL LIQD 10 ML PO PRN (22:00)
[2021-01-02] MEDS: SODIUM CHLORIDE 0.9% 50 ML IVPB IV SCH (22:38)
[2021-01-02] MEDS: REMDESIVIR 100 MG in SODIUM CHLORIDE 0.9% 250ML 250 ML IV SCH (22:38)
[2021-01-02] MEDS: LORazepam 2 MG/ML VIAL IV PRN (22:38)
[2021-01-03] MEDS: cefTRIAXone/NS 2 GM/100 ML 2 GM/100 ML BAG IV SCH (02:30)
[2021-01-03 06:31] LABS: Hemoglobin 12.9 gm/dl (10.1-14.3); Mean Corpuscular HGB Conc 34 % (30-34); Mean Corpuscular Volume 94 fl (79-97); Platelet Count 372 K/mm3 (140-440); Red Blood Count 4.04 M/mm3 (3.65-5.03); Red Cell Distribution Width 17.2 % (13.2-15.2)
[2021-01-03] MEDS: HEPARIN 5,000 UNIT/1 ML VIAL SUB-Q SCH ×3 (06:43→22:01)
[2021-01-03 07:00] LABS: Albumin 3.3 g/dL (3.9-5)
[2021-01-03] MEDS: oxyCODONE /ACETAMINOPHEN 5-325MG TAB PO PRN (08:33)
[2021-01-03] MEDS: ALBUTEROL 8.5 GM MDI INHALATION IH SCH ×3 (08:55→22:30)
[2021-01-03] MEDS: METOPROLOL TARTRATE 25 MG TAB PO SCH ×2 (09:57→22:01)
[2021-01-03] MEDS ORDERED: TOCILIZUMAB 800 MG in SODIUM CHLORIDE 0.9% 100 ML IV ONE (10:00)
[2021-01-03 10:01] LABS: Anisocytosis 1+; Band Neutrophils # (Manual) 0.3 K/mm3; Total Cells Counted 100
[2021-01-03 10:02] LABS: Platelet Estimate Consistent w Auto
--- NOTE | 2021-01-03 10:50 | Progress Note ---
Subjective Date of service: 01/03/21 Principal diagnosis: genesis Interval history: Impression: * Acute kidney injury due to COVID related ATN vs underlying CKD --SCr 1.6mg/dL in 2019 * Acute hypoxic respiratory failure secondary to COVID PNA * COVID 19 * Hyperkalemia - resolved * Hypertension Plan: * Renal function is stable - SCr near baseline labs from 2019 * No acute indication for renal replacement therapy at this time. Continue conservative management. * Diuresis prn * Management of COVID 19 per ID/primary team * Continue antiHTN medications * Dose medications for renal function * Avoid potential nephrotoxins * AM labs ordered Subjective Interval history: No acute events overnight. She remains on high flow oxygen. Objective - Exam Narrative Exam: Deferred in setting of pandemic to reduce transmission of COVID 19. Exam findings of critical care reviewed. Objective - Vital Signs Vital signs: Vital Signs - 12hr 01/02/21 01/02/21 01/03/21 23:00 23:38 00:00 Temperature 97.7 F Pulse Rate 68 53 L Respiratory 31 H 27 H Rate Blood Pressure 139/95 148/88 O2 Sat by Pulse 95 94 Oximetry 01/03/21 01/03/21 01/03/21 01:00 02:00 03:00 Temperature Pulse Rate 64 55 L 57 L Respiratory 31 H 28 H 27 H Rate Blood Pressure 150/99 157/98 133/91 O2 Sat by Pulse 98 96 93 Oximetry 01/03/21 01/03/21 01/03/21 03:13 03:23 04:00 Temperature 98.4 F Pulse Rate 54 L Respiratory 27 H Rate Blood Pressure 133/91 O2 Sat by Pulse 95 95 Oximetry 01/03/21 01/03/21 01/03/21 05:00 06:00 08:00 Temperature 97.5 F L Pulse Rate 61 63 Respiratory 32 H 28 H Rate Blood Pressure 133/91 157/114 O2 Sat by Pulse 96 98 Oximetry - Lab 01/03/21 06:05 01/03/21 06:05 Most recent lab results ABG pH 7.294 (7.320-7.450) L 12/31/20 01:25 ABG O2 Saturation 86.9 (0-100) 12/31/20 01:25 Calcium 9.0 mg/dL (8.4-10.2) 01/03/21 06:05 Medications & Allergies - Medications Allergies/Adverse Reactions: Allergies levofloxacin Allergy (Verified 05/05/19 16:44) Unknown tramadol Allergy (Verified 12/30/20 21:15) Unknown Home Medications: Home Medications Medication Instructions Recorded Confirmed Last Taken Type Metoprolol [Lopressor TAB] 25 mg PO BID #30 tablet 05/05/19 01/02/21 Unknown Rx methOCARBAMOL [Robaxin TAB] 750 mg PO Q8H PRN #20 tablet 05/05/19 Unknown Rx predniSONE [Deltasone] 50 mg PO QDAY #7 tab 05/05/19 Unknown Rx Gabapentin 300 mg PO BID 01/02/21 01/02/21 Unknown History Sertraline [Zoloft] 25 mg PO QDAY 01/02/21 01/02/21 Unknown History Spironolactone 25 mg PO DAILY 01/02/21 01/02/21 Unknown History dilTIAZem CD 240 mg PO DAILY 01/02/21 01/02/21 Unknown History Active Medications: Generic Name Dose Route Start Last Admin Trade Name Freq PRN Reason Stop Dose Admin Acetaminophen 650 mg 01/01/21 11:57 01/02/21 18:19 Acetaminophen 325 Mg Tab PO 650 mg Q6H PRN Administration Pain, Mild (1-3) Albuterol 2 puff 01/01/21 20:00 01/02/21 19:58 Albuterol 8.5 Gm Mdi Inhalation IH Not Given TID BEN Amlodipine Besylate 5 mg 12/31/20 10:00 01/02/21 09:33 Amlodipine 5 Mg Tab PO Not Given DAILY BEN Dexamethasone 6 mg 01/02/21 22:00 01/02/21 21:35 Dexamethasone 4 Mg/Ml Vial IV 01/12/21 10:01 6 mg Q12HR BEN Administration Guaifenesin 10 ml 01/02/21 22:00 01/02/21 22:37 Guaifenesin Dm 200/20 Mg Oral Liqd 10 Ml PO 10 ml Q8H PRN Administration Cough Heparin Sodium (Porcine) 5,000 unit 12/31/20 06:00 01/03/21 06:43 Heparin 5,000 Unit/1 Ml Vial SUB-Q 5,000 unit Q8HR BEN Administration Hydralazine HCl 10 mg 12/30/20 22:47 Hydralazine 20 Mg/1 Ml Inj IV Q6H PRN htn Ceftriaxone Sodium 2 gm in 100 mls @ 200 mls/hr 12/31/20 21:00 01/02/21 20:05 Rocephin/Ns 2 Gm/100 Ml IV 01/03/21 21:29 200 mls/hr Q24H BEN Administration Protocol Azithromycin 500 mg in 250 mls @ 250 mls/hr 12/31/20 21:00 01/02/21 20:45 Zithromax/Ns IV 01/03/21 21:59 250 mls/hr Q24H BEN Administration Protocol REMDESIVIR 100 mg/ Sodium 250 mls @ 500 mls/hr 01/02/21 21:00 01/02/21 22:38 Chloride IV 01/05/21 21:29 500 mls/hr Q24HR@2100 BEN Administration TOCILIZUMAB 800 mg/ Sodium 140 mls @ 120 mls/hr 01/03/21 10:00 Chloride IV 01/03/21 11:09 ONCE ONE Lorazepam 1 mg 12/31/20 11:30 01/02/21 22:38 Lorazepam 2 Mg/Ml Vial IV 1 mg Q6H PRN Administration Agitation Methocarbamol 750 mg 12/30/20 22:46 Methocarbamol 750 Mg Tab PO Q8H PRN back and hip pain Metoprolol Tartrate 25 mg 12/31/20 10:00 01/02/21 21:36 Metoprolol Tartrate 25 Mg Tab PO Not Given BID BEN Oxycodone/Acetaminophen 2 tab 12/31/20 18:57 01/03/21 08:33 Oxycodone /Acetaminophen 5-325mg Tab PO 2 tab Q6H PRN Administration Pain, Moderate (4-6) Pantoprazole Sodium 40 mg 01/03/21 10:00 Pantoprazole 40 Mg Tab PO QDAC BEN Sodium Chloride 50 ml 01/01/21 10:00 01/02/21 22:38 Sodium Chloride 0.9% 50 Ml Ivpb IV 01/05/21 21:01 50 ml Q24HR@2100 BEN Administration
[2021-01-03] MEDS: amLODIPine 5 MG TAB PO SCH (10:57)
[2021-01-03] MEDS: PANTOPRAZOLE 40 MG TAB PO SCH (10:57)
[2021-01-03] MEDS: dexAMETHasone 4 MG/ML VIAL IV SCH ×2 (10:58→22:02)
--- NOTE | 2021-01-03 11:08 | Progress Note ---
Assessment and Plan Cultures: Blood culture no growth so far Covid PCR: Positive A/P: 45-year-old female past medical history hypertension, left kidney cancer status post nephrectomy and stomach cancer now with: #Bilateral pneumonia secondary to COVID-19: Elevated procalcitonin in setting of ZHANE on CKD #Acute hypoxic respiratory failure: secondary to Covid positive. Currently on HFNC. #ZHANE on CKD: With history of nephrectomy due to cancer. Renally dose medications. Recs: -Continue empiric ceftriaxone, azithromycin for 5 days given elevated procalcitonin (though in the setting of ZHANE) -Continue dexamethasone to complete 10 days -Continue remdesivir, complete 5 days -Ordered Actemra 01/02/2021, not available currently -Anticoagulation per hospital protocol -Proning as able Sharon Esteban MD, FACP [facility] ([facility]) O: [phone] F: [phone] Subjective Date of service: 01/03/21 Principal diagnosis: zhane Interval history: No fever. On high flow nasal cannula. Objective - Exam Narrative Exam: Physical Exam (reviewed in chart to minimize risk of transmission) Constitutional: deferred Head, Ears, Nose: deferred Eyes: deferred Neck: deferred Oral: deferred Cardiovascular: deferred Respiratory: deferred GI: deferred Musculoskeletal: deferred Skin: deferred Hem/Lymphatic: deferred Psych: deferred Neurological: deferred - Constitutional Vitals: Vital Signs Temp Pulse Resp BP Pulse Ox 97.5 F L 65 20 157/114 99 01/03/21 08:00 01/03/21 08:55 01/03/21 08:55 01/03/21 06:00 01/03/21 08:55 Temperature -Last 24 Hours Temperature 97.5 F Temperature 98.4 F Temperature 97.7 F Temperature 98.1 F Temperature 99.1 F Temperature 97.7 F - Labs CBC & Chem 7: 01/03/21 06:05 01/03/21 06:05 Labs: Abnormal lab results 01/02/21 01/02/21 01/03/21 Range/Units 09:11 11:46 06:05 RDW (13.2-15.2) % Seg Neuts % (Manual) (40.0-70.0) % Lymphocytes % (Manual) (13.4-35.0) % Nucleated RBC % (0.0-0.9) % Seg Neutrophils # Man (1.8-7.7) K/mm3 Lymphocytes # (Manual) (1.2-5.4) K/mm3 Chloride 108.5 H (98-107) mmol/L BUN 33 H 28 H (7-17) mg/dL Creatinine 1.8 H 1.5 H (0.6-1.2) mg/dL Glucose 102 H 129 H (65-100) mg/dL POC Glucose 111 H (70-105) mg/dL Albumin 3.0 L 3.3 L (3.9-5) g/dL 01/03/21 Range/Units 06:05 RDW 17.2 H (13.2-15.2) % Seg Neuts % (Manual) 87.0 H (40.0-70.0) % Lymphocytes % (Manual) 4.0 L (13.4-35.0) % Nucleated RBC % 1.0 H (0.0-0.9) % Seg Neutrophils # Man 9.0 H (1.8-7.7) K/mm3 Lymphocytes # (Manual) 0.4 L (1.2-5.4) K/mm3 Chloride (98-107) mmol/L BUN (7-17) mg/dL Creatinine (0.6-1.2) mg/dL Glucose (65-100) mg/dL POC Glucose (70-105) mg/dL Albumin (3.9-5) g/dL
--- NOTE | 2021-01-03 11:45 | Progress Note ---
Assessment and Plan 45 y/o obese female with acute respiratory failure secondary COVID 19 pneumonia. 1. Will attempt lasix 40mg IV x1 today to see if this will help with oxygenation 2. Continue HFNC and bipap PRN, would be better if she wore QHS but she will not 3. Actemra today and continue Remdesivir 4. prone if possible during the day, attempt to sleep prone at night. Very very guarded prognosis to poor, especially with patient not wanting to nutrition coordinator perate with therapy being offered. Subjective Date of service: 01/03/21 Principal diagnosis: genesis Interval history: Continues to pull HFNC and masks off despite numerous efforts to explain the importance and absolute need for this. BP elevated Objective Vital Signs - 12hr 01/03/21 01/03/21 01/03/21 00:00 01:00 02:00 Temperature Pulse Rate 53 L 64 55 L Pulse Rate [ Anterior Bilateral Throughout] Respiratory 27 H 31 H 28 H Rate Respiratory Rate [Anterior Bilateral Throughout] Blood Pressure 148/88 150/99 157/98 O2 Sat by Pulse 94 98 96 Oximetry 01/03/21 01/03/21 01/03/21 03:00 03:13 03:23 Temperature 98.4 F Pulse Rate 57 L Pulse Rate [ Anterior Bilateral Throughout] Respiratory 27 H Rate Respiratory Rate [Anterior Bilateral Throughout] Blood Pressure 133/91 O2 Sat by Pulse 93 95 Oximetry 01/03/21 01/03/21 01/03/21 04:00 05:00 06:00 Temperature Pulse Rate 54 L 61 63 Pulse Rate [ Anterior Bilateral Throughout] Respiratory 27 H 32 H 28 H Rate Respiratory Rate [Anterior Bilateral Throughout] Blood Pressure 133/91 133/91 157/114 O2 Sat by Pulse 95 96 98 Oximetry 01/03/21 01/03/21 08:00 08:55 Temperature 97.5 F L Pulse Rate Pulse Rate [ 65 Anterior Bilateral Throughout] Respiratory Rate Respiratory 20 Rate [Anterior Bilateral Throughout] Blood Pressure O2 Sat by Pulse 99 Oximetry CBC and BMP: 01/03/21 06:05 01/03/21 06:05 ABG, PT/INR, D-dimer: ABG ABG pH 7.294 (7.320-7.450) L 12/31/20 01:25 POC ABG pCO2 41.0 mmHg (32.0-48.0) 12/31/20 01:25 POC ABG pO2 58.4 mmHg (83-108) L 12/31/20 01:25 POC ABG HCO3 19.5 12/31/20 01:25 ABG O2 Saturation 86.9 (0-100) 12/31/20 01:25 PT/INR, D-dimer PT 15.5 Sec. (12.2-14.9) H 12/30/20 20:48 INR 1.25 (0.87-1.13) H 12/30/20 20:48 D-Dimer 581.96 ng/mlDDU (0-234) H 12/30/20 20:48 Abnormal lab findings: Abnormal Labs 12/30/20 12/30/20 12/30/20 20:48 20:48 20:48 WBC RDW 17.3 H Lymph % (Auto) [place] % (Auto) 8.0 H Lymph # (Auto) Seg Neutrophils % 75.3 H Seg Neuts % (Manual) Lymphocytes % (Manual) Nucleated RBC % Seg Neutrophils # Seg Neutrophils # Man Lymphocytes # (Manual) PT 15.5 H INR 1.25 H D-Dimer 581.96 H ABG pH POC ABG pO2 ABG Oxyhemoglobin ABG Sodium ABG Potassium ABG Glucose Sodium 125 L Potassium 5.6 H Chloride 93.1 L Carbon Dioxide 20 L BUN 38 H Creatinine 2.9 H Glucose 116 H POC Glucose Calcium Ferritin AST 47 H Lactate Dehydrogenase Total Creatine Kinase 394 H C-Reactive Protein NT-Pro-B Natriuret Pep Albumin 3.1 L Arterial Blood Glucose Arterial Blood Ionized Calcium Coronavirus (PCR) 12/30/20 12/30/20 12/30/20 21:02 21:02 21:02 WBC RDW Lymph % (Auto) [place] % (Auto) Lymph # (Auto) Seg Neutrophils % Seg Neuts % (Manual) Lymphocytes % (Manual) Nucleated RBC % Seg Neutrophils # Seg Neutrophils # Man Lymphocytes # (Manual) PT INR D-Dimer ABG pH POC ABG pO2 ABG Oxyhemoglobin ABG Sodium ABG Potassium ABG Glucose Sodium Potassium Chloride Carbon Dioxide BUN Creatinine Glucose 117 H POC Glucose Calcium Ferritin 814.7 H AST Lactate Dehydrogenase 798 H Total Creatine Kinase C-Reactive Protein 15.40 H NT-Pro-B Natriuret Pep 780.2 H Albumin Arterial Blood Glucose Arterial Blood Ionized Calcium Coronavirus (PCR) 12/31/20 12/31/20 12/31/20 01:25 03:13 03:13 WBC RDW 17.8 H Lymph % (Auto) 10.1 L [place] % (Auto) Lymph # (Auto) 1.0 L Seg Neutrophils % 83.5 H Seg Neuts % (Manual) Lymphocytes % (Manual) Nucleated RBC % Seg Neutrophils # 8.4 H Seg Neutrophils # Man Lymphocytes # (Manual) PT INR D-Dimer ABG pH 7.294 L POC ABG pO2 58.4 L ABG Oxyhemoglobin 86.3 L ABG Sodium 128.4 L ABG Potassium 5.3 H ABG Glucose 153 H Sodium 133 L D Potassium 6.3 H* Chloride 97.6 L Carbon Dioxide 21 L BUN 40 H Creatinine 3.0 H Glucose 151 H POC Glucose Calcium 8.0 L Ferritin AST Lactate Dehydrogenase Total Creatine Kinase C-Reactive Protein NT-Pro-B Natriuret Pep Albumin Arterial Blood Glucose 153 H Arterial Blood Ionized Calcium 4.4 L Coronavirus (PCR) 12/31/20 12/31/20 12/31/20 08:30 09:09 10:15 WBC RDW Lymph % (Auto) [place] % (Auto) Lymph # (Auto) Seg Neutrophils % Seg Neuts % (Manual) Lymphocytes % (Manual) Nucleated RBC % Seg Neutrophils # Seg Neutrophils # Man Lymphocytes # (Manual) PT INR D-Dimer ABG pH POC ABG pO2 ABG Oxyhemoglobin ABG Sodium ABG Potassium ABG Glucose Sodium 135 L Potassium 5.4 H Chloride Carbon Dioxide BUN 40 H Creatinine 2.7 H Glucose 177 H POC Glucose 177 H Calcium Ferritin AST Lactate Dehydrogenase Total Creatine Kinase C-Reactive Protein NT-Pro-B Natriuret Pep Albumin Arterial Blood Glucose Arterial Blood Ionized Calcium Coronavirus (PCR) Positive A 01/01/21 01/01/21 01/02/21 05:04 05:04 09:11 WBC 11.3 H RDW 17.2 H Lymph % (Auto) 7.0 L [place] % (Auto) Lymph # (Auto) 0.8 L Seg Neutrophils % 87.4 H Seg Neuts % (Manual) Lymphocytes % (Manual) Nucleated RBC % Seg Neutrophils # 9.9 H Seg Neutrophils # Man Lymphocytes # (Manual) PT INR D-Dimer ABG pH POC ABG pO2 ABG Oxyhemoglobin ABG Sodium ABG Potassium ABG Glucose Sodium 136 L Potassium Chloride 108.5 H Carbon Dioxide BUN 37 H 33 H Creatinine 1.9 H 1.8 H Glucose 165 H 102 H POC Glucose Calcium Ferritin AST Lactate Dehydrogenase Total Creatine Kinase C-Reactive Protein NT-Pro-B Natriuret Pep Albumin 3.5 L 3.0 L Arterial Blood Glucose Arterial Blood Ionized Calcium Coronavirus (PCR) 01/02/21 01/03/21 01/03/21 11:46 06:05 06:05 WBC RDW 17.2 H Lymph % (Auto) [place] % (Auto) Lymph # (Auto) Seg Neutrophils % Seg Neuts % (Manual) 87.0 H Lymphocytes % (Manual) 4.0 L Nucleated RBC % 1.0 H Seg Neutrophils # Seg Neutrophils # Man 9.0 H Lymphocytes # (Manual) 0.4 L PT INR D-Dimer ABG pH POC ABG pO2 ABG Oxyhemoglobin ABG Sodium ABG Potassium ABG Glucose Sodium Potassium Chloride Carbon Dioxide BUN 28 H Creatinine 1.5 H Glucose 129 H POC Glucose 111 H Calcium Ferritin AST Lactate Dehydrogenase Total Creatine Kinase C-Reactive Protein NT-Pro-B Natriuret Pep Albumin 3.3 L Arterial Blood Glucose Arterial Blood Ionized Calcium Coronavirus (PCR)
[2021-01-03] MEDS ORDERED: FUROSEMIDE 40 MG/4 ML INJ IV ONE (12:00)
--- NOTE | 2021-01-03 15:15 | Progress Note ---
Assessment and Plan Assessment and plan: Sepsis COVID-19 pneumonia Acute hypoxic respiratory failure Acute kidney injury on CKD Hypertension Renal carcinoma s/p nephrectomy Stomach cancer -[facility], nephrology, infectious disease, appreciate recommendations -COVID-19 PCR positive -Empiric antibiotic therapy -Steroid, remdesivir, actemra -Contact/droplet precautions -Anticoagulation per protocol -Wean supplemental oxygen as tolerated -Educated on prone to sleep as tolerated -Pulmonary hygiene -Strict intake and output -Resume antihypertensive regimen and titrate as needed -Trend COVID-19 inflammatory markers for stratification, CBC, CMP GI/DVT prophylaxis: Protonix, heparin subcu, SCDs to bilateral actions while in bed Disposition: ICU The high probability of a clinically significant, sudden or life threatening deterioration of the [respiratory, nephrology] system(s) required my full and direct attention, intervention and personal management. The aggregate critical care time was [35] minutes. This time is in addition to time spent performing reported procedures but includes the following: [x] Data Review and interpretation [x] Patient assessment and monitoring of vital signs [x] Documentation [x] Medication orders and management History Interval history: This is a 45-year-old female with hypertension, renal carcinoma s/p left nephrectomy, stomach cancer who presented to the emergency department on 12/30 with complaints of shortness of breath, dyspnea on exertion, fatigue, weakness, cough for about 2 weeks prior to arrival. Work up in the emergency department revealed acute respiratory failure, CXR concerning for multifocal pneumonia, acute kidney injury, hyponatremia, hyperkalemia, elevated proBNP at 780 and CRP at 15.4. Patient was admitted to the hospital service as a COVID-19 PUI with consults to [facility], infectious disease and nephrology. 12/31/2020 -Severe sepsis with multiorgan dysfunction; continue IV antibiotics and IV fluids -PUI; dexamethasone, ID consult and pending results. -Acute hypoxic respiratory failure; patient is on BiPAP. Pulmonary consulted. Nebulizer treatment -ZHANE with hyperkalemia; patient was given Kayexalate. Patient refused calcium and insulin with dextrose. Nephrology consulted. -Patient is critically sick and she was agitated and tries to go home. ER doctor discussed with the daughter and patient wants to stay. I put the patient on Ativan as needed. 01/01/2021 -Patient Covid test is positive and is on dexamethasone and remdesivir. On empiric antibiotic. ID is following -Acute hypoxic respiratory failure, was on BiPAP yesterday and currently on high flow oxygen 40 L. Nebulizer treatment. -ZHANE; due to the above and improving. Hyperkalemia improved with Kayexalate.. Nephrology consult appreciated. I have seen and evaluated the patient and have explained the patient she wanted remdesivir, she did not say yes or no. I repeatedly asked good but she did not give me an answer. Patient wants to be transferred to [place] but there is no indication to transfer the patient to [place]. If they find a physician who called me to accept the patient I will gladly transfer the patient. I will not initiate the transfer. Patient is not happy, hostile to the medical staff including me. Dr. Donato discussed with the patient's son and mother and explained the situation. I Also discussed with Dr. Donato. 01/02/2021 -Patient is on remdesivir and Actemra. Dexamethasone twice daily dose due to patient size. On empiric IV antibiotics. Patient is on high flow oxygen. Pulmonary and ID is following the patient. Patient is willing to stay. Continue current management. 01/03: At the time of my examination patient is on high flow nasal cannula 40 L 100% FiO2 and is adamant no doctors updated on the plan of care. Patient's acute kidney injury improved further. [facility] has ordered Lasix and we increased her amlodipine for better BP control. Patient has been educated regards to proning and need to keep oxygenation in place. Hospitalist Physical - Constitutional Vitals: Temp Pulse Resp BP Pulse Ox 98.9 F 51 L 24 152/96 98 01/03/21 12:46 01/03/21 13:00 01/03/21 13:00 01/03/21 13:00 01/03/21 14:00 General appearance: Present: mild distress, well-nourished, obese - EENT Eyes: Present: PERRL, EOM intact ENT: hearing intact, clear oral mucosa, dentition normal - Neck Neck: Present: normal ROM - Respiratory Respiratory effort: normal Respiratory: bilateral: diminished - Cardiovascular Rhythm: regular Heart Sounds: Present: S1 & S2. Absent: systolic murmur, diastolic murmur - Extremities Extremities: no ischemia, pulses intact, pulses symmetrical, normal temperature, normal color, Full ROM Peripheral Pulses: within normal limits - Abdominal General gastrointestinal: soft, non-tender, non-distended, normal bowel sounds - Integumentary Integumentary: Present: warm, dry - Psychiatric Psychiatric: agitated - Neurologic Neurologic: no focal deficits, moves all extremities - Allied Health Allied health notes reviewed: nursing HEART Score - HEART Score Troponin: Troponin T < 0.010 ng/mL (0.00-0.029) 12/31/20 00:57 Results - Labs CBC & Chem 7: 01/03/21 06:05 01/03/21 06:05 Labs: Laboratory Last Values WBC 10.4 K/mm3 (4.5-11.0) 01/03/21 06:05 RBC 4.04 M/mm3 (3.65-5.03) 01/03/21 06:05 Hgb 12.9 gm/dl (10.1-14.3) 01/03/21 06:05 Hct 38.0 % (30.3-42.9) 01/03/21 06:05 MCV 94 fl (79-97) 01/03/21 06:05 MCH 32 pg (28-32) 01/03/21 06:05 MCHC 34 % (30-34) 01/03/21 06:05 RDW 17.2 % (13.2-15.2) H 01/03/21 06:05 Plt Count 372 K/mm3 (140-440) 01/03/21 06:05 Lymph % (Auto) 7.0 % (13.4-35.0) L 01/01/21 05:04 [place] % (Auto) 5.2 % (0.0-7.3) 01/01/21 05:04 Eos % (Auto) 0.0 % (0.0-4.3) 01/01/21 05:04 Baso % (Auto) 0.4 % (0.0-1.8) 01/01/21 05:04 Lymph # (Auto) 0.8 K/mm3 (1.2-5.4) L 01/01/21 05:04 [place] # (Auto) 0.6 K/mm3 (0.0-0.8) 01/01/21 05:04 Eos # (Auto) 0.0 K/mm3 (0.0-0.4) 01/01/21 05:04 Baso # (Auto) 0.0 K/mm3 (0.0-0.1) 01/01/21 05:04 Add Manual Diff Complete 01/03/21 06:05 Total Counted 100 01/03/21 06:05 Seg Neutrophils % 87.4 % (40.0-70.0) H 01/01/21 05:04 Seg Neuts % (Manual) 87.0 % (40.0-70.0) H 01/03/21 06:05 Band Neutrophils % 3.0 % 01/03/21 06:05 Lymphocytes % (Manual) 4.0 % (13.4-35.0) L 01/03/21 06:05 Monocytes % (Manual) 4.0 % (0.0-7.3) 01/03/21 06:05 Metamyelocytes % 2.0 % 01/03/21 06:05 Nucleated RBC % 1.0 % (0.0-0.9) H 01/03/21 06:05 Seg Neutrophils # 9.9 K/mm3 (1.8-7.7) H 01/01/21 05:04 Seg Neutrophils # Man 9.0 K/mm3 (1.8-7.7) H 01/03/21 06:05 Band Neutrophils # 0.3 K/mm3 01/03/21 06:05 Lymphocytes # (Manual) 0.4 K/mm3 (1.2-5.4) L 01/03/21 06:05 Abs React Lymphs (Man) 0.0 K/mm3 01/03/21 06:05 Monocytes # (Manual) 0.4 K/mm3 (0.0-0.8) 01/03/21 06:05 Eosinophils # (Manual) 0.0 K/mm3 (0.0-0.4) 01/03/21 06:05 Basophils # (Manual) 0.0 K/mm3 (0.0-0.1) 01/03/21 06:05 Metamyelocytes # 0.2 K/mm3 01/03/21 06:05 Myelocytes # 0.0 K/mm3 01/03/21 06:05 Promyelocytes # 0.0 K/mm3 01/03/21 06:05 Blast Cells # 0.0 K/mm3 01/03/21 06:05 WBC Morphology Not Reportable 01/03/21 06:05 Hypersegmented Neuts Not Reportable 01/03/21 06:05 Hyposegmented Neuts Not Reportable 01/03/21 06:05 Hypogranular Neuts Not Reportable 01/03/21 06:05 Smudge Cells Not Reportable 01/03/21 06:05 Toxic Granulation Not Reportable 01/03/21 06:05 Toxic Vacuolation Not Reportable 01/03/21 06:05 Dohle Bodies Not Reportable 01/03/21 06:05 Pelger-Huet Anomaly Not Reportable 01/03/21 06:05 Anjum Rods Not Reportable 01/03/21 06:05 Platelet Estimate Consistent w auto 01/03/21 06:05 Clumped Platelets Not Reportable 01/03/21 06:05 Plt Clumps, EDTA Not Reportable 01/03/21 06:05 Large Platelets Not Reportable 01/03/21 06:05 Giant Platelets Not Reportable 01/03/21 06:05 Platelet Satelliting Not Reportable 01/03/21 06:05 Plt Morphology Comment Not Reportable 01/03/21 06:05 RBC Morphology Not Reportable 01/03/21 06:05 Dimorphic RBCs Not Reportable 01/03/21 06:05 Polychromasia Few 01/03/21 06:05 Hypochromasia Not Reportable 01/03/21 06:05 Poikilocytosis Not Reportable 01/03/21 06:05 Anisocytosis 1+ 01/03/21 06:05 Microcytosis Not Reportable 01/03/21 06:05 Macrocytosis Not Reportable 01/03/21 06:05 Spherocytes Not Reportable 01/03/21 06:05 Pappenheimer Bodies Not Reportable 01/03/21 06:05 Sickle Cells Not Reportable 01/03/21 06:05 Target Cells Not Reportable 01/03/21 06:05 Tear Drop Cells Not Reportable 01/03/21 06:05 Ovalocytes Not Reportable 01/03/21 06:05 Helmet Cells Not Reportable 01/03/21 06:05 Izquierdo-Seffner Bodies Not Reportable 01/03/21 06:05 [place] Rings Not Reportable 01/03/21 06:05 Shaista Cells Not Reportable 01/03/21 06:05 Bite Cells Not Reportable 01/03/21 06:05 Crenated Cell Not Reportable 01/03/21 06:05 Elliptocytes Not Reportable 01/03/21 06:05 Acanthocytes (Spur) Not Reportable 01/03/21 06:05 Rouleaux Not Reportable 01/03/21 06:05 Hemoglobin C Crystals Not Reportable 01/03/21 06:05 Schistocytes Not Reportable 01/03/21 06:05 Malaria parasites Not Reportable 01/03/21 06:05 Ty Bodies Not Reportable 01/03/21 06:05 Hem Pathologist Commnt No 01/03/21 06:05 PT 15.5 Sec. (12.2-14.9) H 12/30/20 20:48 INR 1.25 (0.87-1.13) H 12/30/20 20:48 APTT 31.0 Sec. (24.2-36.6) 12/30/20 20:48 D-Dimer 581.96 ng/mlDDU (0-234) H 12/30/20 20:48 ABG pH 7.294 (7.320-7.450) L 12/31/20 01:25 POC ABG pCO2 41.0 mmHg (32.0-48.0) 12/31/20 01:25 POC ABG pO2 58.4 mmHg (83-108) L 12/31/20 01:25 POC ABG HCO3 19.5 12/31/20 01:25 ABG O2 Saturation 86.9 (0-100) 12/31/20 01:25 POC ABG Base Excess -6.7 12/31/20 01:25 ABG Hemoglobin 13.0 (12.0-17.5) 12/31/20 01:25 ABG Oxyhemoglobin 86.3 (94-98) L 12/31/20 01:25 ABG Methemoglobin 0 (0.0-1.5) 12/31/20 01:25 ABG Sodium 128.4 mmol/L (136.0-145.0) L 12/31/20 01:25 ABG Potassium 5.3 mmol/L (3.40-4.50) H 12/31/20 01:25 ABG Chloride 104.0 mmol/L (98-107) 12/31/20 01:25 ABG Glucose 153 mg/dL (65-95) H 12/31/20 01:25 Carboxyhemoglobin 0.7 (0.5-1.5) 12/31/20 01:25 FiO2 % 100.0 12/31/20 01:25 Sodium 138 mmol/L (137-145) 01/03/21 06:05 Potassium 4.6 mmol/L (3.6-5.0) 01/03/21 06:05 Chloride 103.3 mmol/L (98-107) 01/03/21 06:05 Carbon Dioxide 24 mmol/L (22-30) 01/03/21 06:05 Anion Gap 15 mmol/L 01/03/21 06:05 BUN 28 mg/dL (7-17) H 01/03/21 06:05 Creatinine 1.5 mg/dL (0.6-1.2) H 01/03/21 06:05 Estimated GFR 46 ml/min 01/03/21 06:05 BUN/Creatinine Ratio 19 % 01/03/21 06:05 Glucose 129 mg/dL (65-100) H 01/03/21 06:05 POC Glucose 111 mg/dL (70-105) H 01/02/21 11:46 Lactic Acid 1.00 mmol/L (0.7-2.0) 12/31/20 00:57 Calcium 9.0 mg/dL (8.4-10.2) 01/03/21 06:05 Ferritin 814.7 ng/mL (10.0-200.0) H 12/30/20 21:02 Total Bilirubin 0.20 mg/dL (0.1-1.2) 01/03/21 06:05 AST 15 units/L (5-40) 01/03/21 06:05 ALT 21 units/L (7-56) 01/03/21 06:05 Alkaline Phosphatase 71 units/L (35-129) 01/03/21 06:05 Lactate Dehydrogenase 798 units/L (91-180) H 12/30/20 21:02 Total Creatine Kinase 394 units/L (30-135) H 12/30/20 20:48 CK-MB (CK-2) 3.7 ng/mL (0.0-4.0) 12/30/20 20:48 CK-MB (CK-2) Rel Index 0.9 (0-4) 12/30/20 20:48 Troponin T < 0.010 ng/mL (0.00-0.029) 12/31/20 00:57 C-Reactive Protein 4.30 mg/dL (0.00-1.30) H 01/03/21 06:05 NT-Pro-B Natriuret Pep 780.2 pg/mL (0-450) H 12/30/20 21:02 Total Protein 7.4 g/dL (6.3-8.2) 01/03/21 06:05 Albumin 3.3 g/dL (3.9-5) L 01/03/21 06:05 Albumin/Globulin Ratio 0.8 % 01/03/21 06:05 Procalcitonin 35.23 ng/mL (<0.15) 12/30/20 21:02 HCG, Qual Negative (Negative) 12/30/20 21:02 Arterial Blood Glucose 153 mg/dL (65-95) H 12/31/20 01:25 Arterial Blood Ionized Calcium 4.4 mg/dL (4.6-5.3) L 12/31/20 01:25 Coronavirus (PCR) Positive (Negative) A 12/31/20 08:30 Microbiology: Microbiology 12/30/20 21:18 Peripheral/Venous Blood Culture - Preliminary NO GROWTH AFTER 72 HOURS 12/30/20 21:13 Peripheral/Venous Blood Culture - Preliminary NO GROWTH AFTER 72 HOURS Suarez/IV: Voiding Method External Female Catheter Active Medications - Current Medications Current Medications: Generic Name Dose Route Start Last Admin Trade Name Freq PRN Reason Stop Dose Admin Acetaminophen 650 mg 01/01/21 11:57 01/02/21 18:19 Acetaminophen 325 Mg Tab PO 650 mg Q6H PRN Administration Pain, Mild (1-3) Albuterol 2 puff 01/01/21 20:00 01/03/21 14:53 Albuterol 8.5 Gm Mdi Inhalation IH 2 inhalation TID BEN Administration Amlodipine Besylate 10 mg 01/03/21 16:00 Amlodipine 10 Mg Tab PO DAILY BEN Dexamethasone 6 mg 01/02/21 22:00 01/03/21 10:58 Dexamethasone 4 Mg/Ml Vial IV 01/12/21 10:01 6 mg Q12HR BEN Administration Guaifenesin 10 ml 01/02/21 22:00 01/02/21 22:37 Guaifenesin Dm 200/20 Mg Oral Liqd 10 Ml PO 10 ml Q8H PRN Administration Cough Heparin Sodium (Porcine) 5,000 unit 12/31/20 06:00 01/03/21 13:48 Heparin 5,000 Unit/1 Ml Vial SUB-Q 5,000 unit Q8HR BEN Administration Hydralazine HCl 10 mg 12/30/20 22:47 Hydralazine 20 Mg/1 Ml Inj IV Q6H PRN htn Ceftriaxone Sodium 2 gm in 100 mls @ 200 mls/hr 12/31/20 21:00 01/02/21 20:05 Rocephin/Ns 2 Gm/100 Ml IV 01/03/21 21:29 200 mls/hr Q24H BEN Administration Protocol Azithromycin 500 mg in 250 mls @ 250 mls/hr 12/31/20 21:00 01/02/21 20:45 Zithromax/Ns IV 01/03/21 21:59 250 mls/hr Q24H BEN Administration Protocol REMDESIVIR 100 mg/ Sodium 250 mls @ 500 mls/hr 01/02/21 21:00 01/02/21 22:38 Chloride IV 01/05/21 21:29 500 mls/hr Q24HR@2100 BEN Administration Lorazepam 1 mg 12/31/20 11:30 01/02/21 22:38 Lorazepam 2 Mg/Ml Vial IV 1 mg Q6H PRN Administration Agitation Methocarbamol 750 mg 12/30/20 22:46 Methocarbamol 750 Mg Tab PO Q8H PRN back and hip pain Metoprolol Tartrate 25 mg 12/31/20 10:00 01/03/21 09:57 Metoprolol Tartrate 25 Mg Tab PO Not Given BID BEN Oxycodone/Acetaminophen 2 tab 12/31/20 18:57 01/03/21 08:33 Oxycodone /Acetaminophen 5-325mg Tab PO 2 tab Q6H PRN Administration Pain, Moderate (4-6) Pantoprazole Sodium 40 mg 01/03/21 10:00 01/03/21 10:57 Pantoprazole 40 Mg Tab PO 40 mg QDAC BEN Administration Sodium Chloride 50 ml 01/01/21 10:00 01/02/21 22:38 Sodium Chloride 0.9% 50 Ml Ivpb IV 01/05/21 21:01 50 ml Q24HR@2100 BEN Administration Nutrition/Malnutrition Assess - Dietary Evaluation Nutrition/Malnutrition Findings: Nutrition Notes Start: 01/01/21 08:33 Freq: Status: Active Protocol: Document 01/03/21 13:54 CW (Rec: 01/03/21 14:28 CW [id number]) Nutrition Notes Initial or Follow up Assessment Current Diagnosis Acute Kidney Injury, Hypertension,Respiratory Failure Other Pertinent Diagnosis SOB, Covid +, Kidney & stomach CA, s/p nephrectomy Current Diet renal consistent carbohydrate diet Labs/Tests BUN 28 Cr 1.5 Pertinent Medications Decadron Lasix Height 5 ft 4 in Weight 136 kg Usual Body Weight 136 kg [place] Body Weight (kg) 54.54 BMI 51.5 Weight change and time frame weight stable per pt. Weight Status Morbidly Obese Subjective/Other Information F/U for intakes. Pt has a poor PO intake. Spoke to pt regarding meal preferences. Pt is not interested in trying ONS. Percent of energy/protein needs met: 32%/25% Burn Absent Trauma Absent GI Symptoms None Food Allergy No Usual Diet at Home Fresh Fruit Current % PO Poor (25-49%) Minimum of two criteria No physical signs of malnutrition #1 Nutrition Diagnosis Inadequate oral intake Etiology dislike of meal As Evidenced by Signs and Symptoms pt reports a dislike of meals Is patient on ventilator? No Is Patient Ambulatory and/or Out of Bed No REE-([place]-confined to bed) [phone] Kcal/Kg value to use for calculation 12 Approximate Energy Requirements Using 1632 kcal/Kg Calculation Used for Recommendations Kcal/kg Additional Notes protein: 76 - 95 (0.8 - 1g/ kgAdjBW 95.27) fluid needs: 1 ml/kcal Nutrition Intervention Change Diet Order: Continue Renal Consistent Carbohydrate diet Goal #1 Meet at least 75% of kcal and protein needs via PO intake Anticipated Discharge Needs: Consistent Carbohydrate Diet Follow-Up By: 01/05/21 Additional Comments F/U for intakes
[2021-01-03] MEDS: ACETAMINOPHEN 325 MG TAB PO PRN (17:52)
[2021-01-03] MEDS: amLODIPine 10 MG TAB PO SCH ×2 (17:52→17:56)
[2021-01-03] MEDS: LORazepam 2 MG/ML VIAL IV PRN (22:01)
[2021-01-03] MEDS: AZITHROMYCIN/NS 500 MG/250 ML 500 MG/250 ML BAG IV SCH (22:30)
[2021-01-03] MEDS: SODIUM CHLORIDE 0.9% 50 ML IVPB IV SCH (23:06)
[2021-01-03] MEDS: REMDESIVIR 100 MG in SODIUM CHLORIDE 0.9% 250ML 250 ML IV SCH (23:07)
[2021-01-04 05:26] LABS: C-Reactive Protein 1.5 mg/dL (0.00-1.30)
[2021-01-04 05:28] LABS: Albumin 3.1 g/dL (3.9-5); Calcium 8.9 mg/dL (8.4-10.2)
[2021-01-04] MEDS: HEPARIN 5,000 UNIT/1 ML VIAL SUB-Q SCH ×2 (06:24→14:24)
[2021-01-04] MEDS: ALBUTEROL 8.5 GM MDI INHALATION IH SCH ×3 (07:47→19:54)
[2021-01-04] MEDS: PANTOPRAZOLE 40 MG TAB PO SCH ×2 (08:27→10:42)
[2021-01-04] MEDS: amLODIPine 10 MG TAB PO SCH (09:06)
[2021-01-04] MEDS: METOPROLOL TARTRATE 25 MG TAB PO SCH (09:06)
[2021-01-04] MEDS ORDERED: SERTRALINE 25 MG TAB PO SCH (10:00)
[2021-01-04] MEDS ORDERED: GABAPENTIN 300 MG CAP PO SCH (10:00)
[2021-01-04] MEDS ORDERED: SODIUM POLYSTYRENE 15 GM/60 ML ORAL LIQD PO ONE (11:00)
[2021-01-04] MEDS: dexAMETHasone 4 MG/ML VIAL IV SCH (11:42)
--- NOTE | 2021-01-04 12:04 | Progress Note ---
Assessment and Plan Cultures: Blood culture no growth so far Covid PCR: Positive A/P: 45-year-old female past medical history hypertension, left kidney cancer status post nephrectomy and stomach cancer now with: #Bilateral pneumonia secondary to COVID-19: Elevated procalcitonin in setting of ZHANE on CKD. S/P empiric abx. #Acute hypoxic respiratory failure: secondary to Covid positive. Currently on HFNC. #ZHANE on CKD: With history of nephrectomy due to cancer. Renally dose medications. Recs: -completed abx -Continue dexamethasone to complete 10 days -Continue remdesivir, complete 5 days -s/p Actemra 01/03/2021 -Anticoagulation per hospital protocol -Proning as able Sharon Esteban MD, FACP [facility] O: [phone] F: [phone] Subjective Date of service: 01/04/21 Principal diagnosis: zhane Interval history: No fever. On high flow nasal cannula. Got Actemra yesterday. Objective - Exam Narrative Exam: Physical Exam (reviewed in chart to minimize risk of transmission) Constitutional: deferred Head, Ears, Nose: deferred Eyes: deferred Neck: deferred Oral: deferred Cardiovascular: deferred Respiratory: deferred GI: deferred Musculoskeletal: deferred Skin: deferred Hem/Lymphatic: deferred Psych: deferred Neurological: deferred - Constitutional Vitals: Vital Signs Temp Pulse Resp BP Pulse Ox 97.7 F 66 21 139/81 96 01/04/21 08:20 01/04/21 10:00 01/04/21 10:00 01/04/21 10:00 01/04/21 10:00 Temperature -Last 24 Hours Temperature 97.7 F Temperature 98.2 F Temperature 97.8 F Temperature 97.9 F Temperature 98.9 F - Labs CBC & Chem 7: 01/03/21 06:05 01/04/21 04:40 Labs: Abnormal lab results 01/03/21 01/04/21 01/04/21 Range/Units 06:05 04:40 04:40 D-Dimer 736.75 H (0-234) ng/mlDDU Potassium 5.4 H (3.6-5.0) mmol/L BUN 29 H (7-17) mg/dL Creatinine 1.5 H (0.6-1.2) mg/dL Glucose 134 H (65-100) mg/dL Ferritin (10.0-200.0) ng/mL Lactate Dehydrogenase (91-180) units/L C-Reactive Protein 4.30 H (0.00-1.30) mg/dL Albumin 3.1 L (3.9-5) g/dL 01/04/21 01/04/21 Range/Units 04:40 04:40 D-Dimer (0-234) ng/mlDDU Potassium (3.6-5.0) mmol/L BUN (7-17) mg/dL Creatinine (0.6-1.2) mg/dL Glucose (65-100) mg/dL Ferritin 475.7 H (10.0-200.0) ng/mL Lactate Dehydrogenase 364 H (91-180) units/L C-Reactive Protein 1.50 H (0.00-1.30) mg/dL Albumin (3.9-5) g/dL
--- NOTE | 2021-01-04 12:33 | Progress Note ---
Subjective Date of service: 01/04/21 Principal diagnosis: genesis Interval history: Impression: * Acute kidney injury due to COVID related ATN vs underlying CKD --SCr 1.6mg/dL in 2019 * Acute hypoxic respiratory failure secondary to COVID PNA * COVID 19 * Hyperkalemia * Hypertension Plan: * Renal function is stable - SCr near baseline labs from 2019 * k noted, treat k medically * No acute indication for renal replacement therapy at this time. Continue conservative management. * Diuresis prn * Management of COVID 19 per ID/primary team * Continue antiHTN medications * Dose medications for renal function * Avoid potential nephrotoxins * AM labs ordered Subjective Interval history: No acute events overnight. She remains on high flow oxygen. Objective - Exam Narrative Exam: Deferred in setting of pandemic to reduce transmission of COVID 19. Exam findings of critical care reviewed. Objective - Vital Signs Vital signs: Vital Signs - 12hr 01/04/21 01/04/21 01/04/21 01:00 02:00 03:00 Temperature Pulse Rate 56 L 55 L 53 L Pulse Rate [ Anterior Bilateral Throughout] Respiratory 25 H 28 H 21 Rate Respiratory Rate [Anterior Bilateral Throughout] Blood Pressure 145/94 145/97 145/107 O2 Sat by Pulse 93 93 94 Oximetry 01/04/21 01/04/21 01/04/21 03:42 04:00 04:20 Temperature 98.2 F Pulse Rate 51 L Pulse Rate [ Anterior Bilateral Throughout] Respiratory 25 H Rate Respiratory Rate [Anterior Bilateral Throughout] Blood Pressure 156/94 O2 Sat by Pulse 90 95 Oximetry 01/04/21 01/04/21 01/04/21 05:00 06:00 07:00 Temperature Pulse Rate 56 L 53 L 64 Pulse Rate [ Anterior Bilateral Throughout] Respiratory 32 H 31 H 25 H Rate Respiratory Rate [Anterior Bilateral Throughout] Blood Pressure 168/87 168/87 169/92 O2 Sat by Pulse 89 98 95 Oximetry 01/04/21 01/04/21 01/04/21 07:46 07:47 08:00 Temperature Pulse Rate 54 L Pulse Rate [ 61 Anterior Bilateral Throughout] Respiratory 24 Rate Respiratory 18 Rate [Anterior Bilateral Throughout] Blood Pressure 142/88 O2 Sat by Pulse 93 89 Oximetry 01/04/21 01/04/21 01/04/21 08:20 09:00 09:06 Temperature 97.7 F Pulse Rate 48 L 48 L Pulse Rate [ Anterior Bilateral Throughout] Respiratory 25 H Rate Respiratory Rate [Anterior Bilateral Throughout] Blood Pressure 139/81 139/81 O2 Sat by Pulse 89 Oximetry 01/04/21 10:00 Temperature Pulse Rate 66 Pulse Rate [ Anterior Bilateral Throughout] Respiratory 21 Rate Respiratory Rate [Anterior Bilateral Throughout] Blood Pressure 139/81 O2 Sat by Pulse 96 Oximetry - Lab 01/03/21 06:05 01/04/21 04:40 Most recent lab results ABG pH 7.294 (7.320-7.450) L 12/31/20 01:25 ABG O2 Saturation 86.9 (0-100) 12/31/20 01:25 Calcium 8.9 mg/dL (8.4-10.2) 01/04/21 04:40 Medications & Allergies - Medications Allergies/Adverse Reactions: Allergies levofloxacin Allergy (Verified 05/05/19 16:44) Unknown tramadol Allergy (Verified 12/30/20 21:15) Unknown Home Medications: Home Medications Medication Instructions Recorded Confirmed Last Taken Type Metoprolol [Lopressor TAB] 25 mg PO BID #30 tablet 05/05/19 01/02/21 Unknown Rx methOCARBAMOL [Robaxin TAB] 750 mg PO Q8H PRN #20 tablet 05/05/19 Unknown Rx predniSONE [Deltasone] 50 mg PO QDAY #7 tab 05/05/19 Unknown Rx Gabapentin 300 mg PO BID 01/02/21 01/02/21 Unknown History Sertraline [Zoloft] 25 mg PO QDAY 01/02/21 01/02/21 Unknown History Spironolactone 25 mg PO DAILY 01/02/21 01/02/21 Unknown History dilTIAZem CD 240 mg PO DAILY 01/02/21 01/02/21 Unknown History Active Medications: Generic Name Dose Route Start Last Admin Trade Name Freq PRN Reason Stop Dose Admin Acetaminophen 650 mg 01/01/21 11:57 01/03/21 17:52 Acetaminophen 325 Mg Tab PO 650 mg Q6H PRN Administration Pain, Mild (1-3) Albuterol 2 puff 01/01/21 20:00 01/04/21 07:47 Albuterol 8.5 Gm Mdi Inhalation IH 2 inhalation TID BEN Administration Amlodipine Besylate 10 mg 01/03/21 16:00 01/04/21 09:06 Amlodipine 10 Mg Tab PO Not Given DAILY BEN Dexamethasone 6 mg 01/02/21 22:00 01/04/21 11:42 Dexamethasone 4 Mg/Ml Vial IV 01/12/21 10:01 Not Given Q12HR BEN Gabapentin 300 mg 01/04/21 10:00 01/04/21 11:42 Gabapentin 300 Mg Cap PO Not Given BID BEN Guaifenesin 10 ml 01/02/21 22:00 01/02/21 22:37 Guaifenesin Dm 200/20 Mg Oral Liqd 10 Ml PO 10 ml Q8H PRN Administration Cough Heparin Sodium (Porcine) 5,000 unit 12/31/20 06:00 01/04/21 06:24 Heparin 5,000 Unit/1 Ml Vial SUB-Q 5,000 unit Q8HR BEN Administration Hydralazine HCl 10 mg 12/30/20 22:47 Hydralazine 20 Mg/1 Ml Inj IV Q6H PRN htn REMDESIVIR 100 mg/ Sodium 250 mls @ 500 mls/hr 01/04/21 21:00 Chloride IV 01/06/21 21:29 Q24HR@2100 [facility] Lorazepam 1 mg 12/31/20 11:30 01/03/21 22:01 Lorazepam 2 Mg/Ml Vial IV 1 mg Q6H PRN Administration Agitation Methocarbamol 750 mg 12/30/20 22:46 Methocarbamol 750 Mg Tab PO Q8H PRN back and hip pain Metoprolol Tartrate 25 mg 12/31/20 10:00 01/04/21 09:06 Metoprolol Tartrate 25 Mg Tab PO Not Given BID [facility] Oxycodone/Acetaminophen 2 tab 12/31/20 18:57 01/03/21 08:33 Oxycodone /Acetaminophen 5-325mg Tab PO 2 tab Q6H PRN Administration Pain, Moderate (4-6) Pantoprazole Sodium 40 mg 01/03/21 10:00 01/04/21 10:42 Pantoprazole 40 Mg Tab PO Not Given QDAC BEN Sertraline HCl 25 mg 01/04/21 10:00 01/04/21 11:42 Sertraline 25 Mg Tab PO Not Given QDAY BEN Sodium Chloride 50 ml 01/01/21 10:00 01/03/21 23:06 Sodium Chloride 0.9% 50 Ml Ivpb IV 01/06/21 21:01 Not Given Q24HR@2100 [facility]
--- NOTE | 2021-01-04 14:03 | Progress Note ---
Assessment and Plan - Patient Problems (1) COVID-19 Current Visit: Yes Status: Acute (2) Cough Current Visit: Yes Status: Acute (3) Fever Current Visit: Yes Status: Acute Qualifiers: Fever type: unspecified Qualified Code(s): R50.9 - Fever, unspecified (4) Renal failure Current Visit: Yes Status: Acute Qualifiers: Renal failure chronicity: acute Acute renal failure type: unspecified Qualified Code(s): N17.9 - Acute kidney failure, unspecified (5) SOB (shortness of breath) Current Visit: Yes Status: Acute (6) Acute respiratory failure Current Visit: No Status: Acute (7) Hypertension Current Visit: No Status: Acute Subjective Principal diagnosis: genesis Interval history: sitting up in bed on [place] Objective Vital Signs - 12hr 01/04/21 01/04/21 01/04/21 03:00 03:42 04:00 Temperature 98.2 F Pulse Rate 53 L 51 L Pulse Rate [ Anterior Bilateral Throughout] Respiratory 21 25 H Rate Respiratory Rate [Anterior Bilateral Throughout] Blood Pressure 145/107 156/94 O2 Sat by Pulse 94 90 Oximetry 01/04/21 01/04/21 01/04/21 04:20 05:00 06:00 Temperature Pulse Rate 56 L 53 L Pulse Rate [ Anterior Bilateral Throughout] Respiratory 32 H 31 H Rate Respiratory Rate [Anterior Bilateral Throughout] Blood Pressure 168/87 168/87 O2 Sat by Pulse 95 89 98 Oximetry 01/04/21 01/04/21 01/04/21 07:00 07:46 07:47 Temperature Pulse Rate 64 Pulse Rate [ 61 Anterior Bilateral Throughout] Respiratory 25 H Rate Respiratory 18 Rate [Anterior Bilateral Throughout] Blood Pressure 169/92 O2 Sat by Pulse 95 93 Oximetry 01/04/21 01/04/21 01/04/21 08:00 08:20 09:00 Temperature 97.7 F Pulse Rate 54 L 48 L Pulse Rate [ Anterior Bilateral Throughout] Respiratory 24 25 H Rate Respiratory Rate [Anterior Bilateral Throughout] Blood Pressure 142/88 139/81 O2 Sat by Pulse 89 89 Oximetry 01/04/21 01/04/21 01/04/21 09:06 10:00 12:00 Temperature 97.4 F L Pulse Rate 48 L 66 Pulse Rate [ Anterior Bilateral Throughout] Respiratory 21 Rate Respiratory Rate [Anterior Bilateral Throughout] Blood Pressure 139/81 139/81 O2 Sat by Pulse 96 Oximetry 01/04/21 01/04/21 12:46 13:00 Temperature Pulse Rate Pulse Rate [ Anterior Bilateral Throughout] Respiratory Rate Respiratory Rate [Anterior Bilateral Throughout] Blood Pressure 163/102 163/102 O2 Sat by Pulse 98 96 Oximetry Constitutional: alert, other (on hiflo) Eyes: non-icteric ENT: oropharynx moist Neck: supple Effort: normal Ascultation: Bilateral: diminished breath sounds, rhonchi (rare) Cardiovascular: regular rate and rhythm Gastrointestinal: normoactive bowel sounds, soft, non-tender, non-distended Integumentary: normal CBC and BMP: 01/03/21 06:05 01/04/21 04:40 ABG, PT/INR, D-dimer: ABG ABG pH 7.294 (7.320-7.450) L 12/31/20 01:25 POC ABG pCO2 41.0 mmHg (32.0-48.0) 12/31/20 01:25 POC ABG pO2 58.4 mmHg (83-108) L 12/31/20 01:25 POC ABG HCO3 19.5 12/31/20 01:25 ABG O2 Saturation 86.9 (0-100) 12/31/20 01:25 PT/INR, D-dimer PT 15.5 Sec. (12.2-14.9) H 12/30/20 20:48 INR 1.25 (0.87-1.13) H 12/30/20 20:48 D-Dimer 736.75 ng/mlDDU (0-234) H 01/04/21 04:40 Abnormal lab findings: Abnormal Labs 12/30/20 12/30/20 12/30/20 20:48 20:48 20:48 WBC RDW 17.3 H Lymph % (Auto) [place] % (Auto) 8.0 H Lymph # (Auto) Seg Neutrophils % 75.3 H Seg Neuts % (Manual) Lymphocytes % (Manual) Nucleated RBC % Seg Neutrophils # Seg Neutrophils # Man Lymphocytes # (Manual) PT 15.5 H INR 1.25 H D-Dimer 581.96 H ABG pH POC ABG pO2 ABG Oxyhemoglobin ABG Sodium ABG Potassium ABG Glucose Sodium 125 L Potassium 5.6 H Chloride 93.1 L Carbon Dioxide 20 L BUN 38 H Creatinine 2.9 H Glucose 116 H POC Glucose Calcium Ferritin AST 47 H Lactate Dehydrogenase Total Creatine Kinase 394 H C-Reactive Protein NT-Pro-B Natriuret Pep Albumin 3.1 L Arterial Blood Glucose Arterial Blood Ionized Calcium Coronavirus (PCR) 12/30/20 12/30/20 12/30/20 21:02 21:02 21:02 WBC RDW Lymph % (Auto) [place] % (Auto) Lymph # (Auto) Seg Neutrophils % Seg Neuts % (Manual) Lymphocytes % (Manual) Nucleated RBC % Seg Neutrophils # Seg Neutrophils # Man Lymphocytes # (Manual) PT INR D-Dimer ABG pH POC ABG pO2 ABG Oxyhemoglobin ABG Sodium ABG Potassium ABG Glucose Sodium Potassium Chloride Carbon Dioxide BUN Creatinine Glucose 117 H POC Glucose Calcium Ferritin 814.7 H AST Lactate Dehydrogenase 798 H Total Creatine Kinase C-Reactive Protein 15.40 H NT-Pro-B Natriuret Pep 780.2 H Albumin Arterial Blood Glucose Arterial Blood Ionized Calcium Coronavirus (PCR) 12/31/20 12/31/20 12/31/20 01:25 03:13 03:13 WBC RDW 17.8 H Lymph % (Auto) 10.1 L [place] % (Auto) Lymph # (Auto) 1.0 L Seg Neutrophils % 83.5 H Seg Neuts % (Manual) Lymphocytes % (Manual) Nucleated RBC % Seg Neutrophils # 8.4 H Seg Neutrophils # Man Lymphocytes # (Manual) PT INR D-Dimer ABG pH 7.294 L POC ABG pO2 58.4 L ABG Oxyhemoglobin 86.3 L ABG Sodium 128.4 L ABG Potassium 5.3 H ABG Glucose 153 H Sodium 133 L D Potassium 6.3 H* Chloride 97.6 L Carbon Dioxide 21 L BUN 40 H Creatinine 3.0 H Glucose 151 H POC Glucose Calcium 8.0 L Ferritin AST Lactate Dehydrogenase Total Creatine Kinase C-Reactive Protein NT-Pro-B Natriuret Pep Albumin Arterial Blood Glucose 153 H Arterial Blood Ionized Calcium 4.4 L Coronavirus (PCR) 12/31/20 12/31/20 12/31/20 08:30 09:09 10:15 WBC RDW Lymph % (Auto) [place] % (Auto) Lymph # (Auto) Seg Neutrophils % Seg Neuts % (Manual) Lymphocytes % (Manual) Nucleated RBC % Seg Neutrophils # Seg Neutrophils # Man Lymphocytes # (Manual) PT INR D-Dimer ABG pH POC ABG pO2 ABG Oxyhemoglobin ABG Sodium ABG Potassium ABG Glucose Sodium 135 L Potassium 5.4 H Chloride Carbon Dioxide BUN 40 H Creatinine 2.7 H Glucose 177 H POC Glucose 177 H Calcium Ferritin AST Lactate Dehydrogenase Total Creatine Kinase C-Reactive Protein NT-Pro-B Natriuret Pep Albumin Arterial Blood Glucose Arterial Blood Ionized Calcium Coronavirus (PCR) Positive A 01/01/21 01/01/21 01/02/21 05:04 05:04 09:11 WBC 11.3 H RDW 17.2 H Lymph % (Auto) 7.0 L [place] % (Auto) Lymph # (Auto) 0.8 L Seg Neutrophils % 87.4 H Seg Neuts % (Manual) Lymphocytes % (Manual) Nucleated RBC % Seg Neutrophils # 9.9 H Seg Neutrophils # Man Lymphocytes # (Manual) PT INR D-Dimer ABG pH POC ABG pO2 ABG Oxyhemoglobin ABG Sodium ABG Potassium ABG Glucose Sodium 136 L Potassium Chloride 108.5 H Carbon Dioxide BUN 37 H 33 H Creatinine 1.9 H 1.8 H Glucose 165 H 102 H POC Glucose Calcium Ferritin AST Lactate Dehydrogenase Total Creatine Kinase C-Reactive Protein NT-Pro-B Natriuret Pep Albumin 3.5 L 3.0 L Arterial Blood Glucose Arterial Blood Ionized Calcium Coronavirus (PCR) 01/02/21 01/03/21 01/03/21 11:46 06:05 06:05 WBC RDW 17.2 H Lymph % (Auto) [place] % (Auto) Lymph # (Auto) Seg Neutrophils % Seg Neuts % (Manual) 87.0 H Lymphocytes % (Manual) 4.0 L Nucleated RBC % 1.0 H Seg Neutrophils # Seg Neutrophils # Man 9.0 H Lymphocytes # (Manual) 0.4 L PT INR D-Dimer ABG pH POC ABG pO2 ABG Oxyhemoglobin ABG Sodium ABG Potassium ABG Glucose Sodium Potassium Chloride Carbon Dioxide BUN 28 H Creatinine 1.5 H Glucose 129 H POC Glucose 111 H Calcium Ferritin AST Lactate Dehydrogenase Total Creatine Kinase C-Reactive Protein NT-Pro-B Natriuret Pep Albumin 3.3 L Arterial Blood Glucose Arterial Blood Ionized Calcium Coronavirus (PCR) 01/03/21 01/04/21 01/04/21 06:05 04:40 04:40 WBC RDW Lymph % (Auto) [place] % (Auto) Lymph # (Auto) Seg Neutrophils % Seg Neuts % (Manual) Lymphocytes % (Manual) Nucleated RBC % Seg Neutrophils # Seg Neutrophils # Man Lymphocytes # (Manual) PT INR D-Dimer 736.75 H ABG pH POC ABG pO2 ABG Oxyhemoglobin ABG Sodium ABG Potassium ABG Glucose Sodium Potassium 5.4 H Chloride Carbon Dioxide BUN 29 H Creatinine 1.5 H Glucose 134 H POC Glucose Calcium Ferritin AST Lactate Dehydrogenase Total Creatine Kinase C-Reactive Protein 4.30 H NT-Pro-B Natriuret Pep Albumin 3.1 L Arterial Blood Glucose Arterial Blood Ionized Calcium Coronavirus (PCR) 01/04/21 01/04/21 04:40 04:40 WBC RDW Lymph % (Auto) [place] % (Auto) Lymph # (Auto) Seg Neutrophils % Seg Neuts % (Manual) Lymphocytes % (Manual) Nucleated RBC % Seg Neutrophils # Seg Neutrophils # Man Lymphocytes # (Manual) PT INR D-Dimer ABG pH POC ABG pO2 ABG Oxyhemoglobin ABG Sodium ABG Potassium ABG Glucose Sodium Potassium Chloride Carbon Dioxide BUN Creatinine Glucose POC Glucose Calcium Ferritin 475.7 H AST Lactate Dehydrogenase 364 H Total Creatine Kinase C-Reactive Protein 1.50 H NT-Pro-B Natriuret Pep Albumin Arterial Blood Glucose Arterial Blood Ionized Calcium Coronavirus (PCR)
--- NOTE | 2021-01-04 17:13 | Progress Note ---
Assessment and Plan Assessment and plan: Sepsis COVID-19 pneumonia Acute hypoxic respiratory failure Acute kidney injury on CKD Hypertension Renal carcinoma s/p nephrectomy Stomach cancer -[facility], nephrology, infectious disease, appreciate recommendations -COVID-19 PCR positive -Empiric antibiotic therapy -Steroid, remdesivir, actemra -Contact/droplet precautions -Anticoagulation per protocol -Wean supplemental oxygen as tolerated -Educated on prone to sleep as tolerated -Pulmonary hygiene -Strict intake and output -Resume antihypertensive regimen and titrate as needed -Trend COVID-19 inflammatory markers for stratification, CBC, CMP GI/DVT prophylaxis: Protonix, heparin subcu, SCDs to bilateral actions while in bed Disposition: transfer to [facility] The high probability of a clinically significant, sudden or life threatening deterioration of the [respiratory, nephrology] system(s) required my full and direct attention, intervention and personal management. The aggregate critical care time was [35] minutes. This time is in addition to time spent performing reported procedures but includes the following: [x] Data Review and interpretation [x] Patient assessment and monitoring of vital signs [x] Documentation [x] Medication orders and management History Interval history: This is a 45-year-old female with hypertension, renal carcinoma s/p left nephrectomy, stomach cancer who presented to the emergency department on 12/30 with complaints of shortness of breath, dyspnea on exertion, fatigue, weakness, cough for about 2 weeks prior to arrival. Work up in the emergency department r evealed acute respiratory failure, CXR concerning for multifocal pneumonia, acute kidney injury, hyponatremia, hyperkalemia, elevated proBNP at 780 and CRP at 15.4. Patient was admitted to the hospital service as a COVID-19 PUI with consults to [facility], infectious disease and nephrology. 12/31/2020 -Severe sepsis with multiorgan dysfunction; continue IV antibiotics and IV fluids -PUI; dexamethasone, ID consult and pending results. -Acute hypoxic respiratory failure; patient is on BiPAP. Pulmonary consulted. Nebulizer treatment -ZHANE with hyperkalemia; patient was given Kayexalate. Patient refused calcium and insulin with dextrose. Nephrology consulted. -Patient is critically sick and she was agitated and tries to go home. ER doctor discussed with the daughter and patient wants to stay. I put the patient on Ativan as needed. 01/01/2021 -Patient Covid test is positive and is on dexamethasone and remdesivir. On empiric antibiotic. ID is following -Acute hypoxic respiratory failure, was on BiPAP yesterday and currently on high flow oxygen 40 L. Nebulizer treatment. -ZHANE; due to the above and improving. Hyperkalemia improved with Kayexalate.. Nephrology consult appreciated. I have seen and evaluated the patient and have explained the patient she wanted remdesivir, she did not say yes or no. I repeatedly asked good but she did not give me an answer. Patient wants to be transferred to [place] but there is no indication to transfer the patient to [place]. If they find a physician who called me to accept the patient I will gladly transfer the patient. I will not initiate the transfer. Patient is not happy, hostile to the medical staff including me. Dr. Donato discussed with the patient's son and mother and explained the situation. I Also discussed with Dr. Donato. 01/02/2021 -Patient is on remdesivir and Actemra. Dexamethasone twice daily dose due to patient size. On empiric IV antibiotics. Patient is on high flow oxygen. Pulmonary and ID is following the patient. Patient is willing to stay. Continue current management. 01/03: At the time of my examination patient is on high flow nasal cannula 40 L 100% FiO2 and is adamant no doctors updated on the plan of care. Patient's acute kidney injury improved further. [facility] has ordered Lasix and we increased her amlodipine for better BP control. Patient has been educated regards to proning and need to keep oxygenation in place. 01/04: Patient continues to refuse care and medication and is adamant she is leav ing AMA tomorrow. We will obtain an ABG and transfer her to [facility]. This morning at the time of my examination she was 40L 80% FiO2 HFNC. RT to wean as tolerated. Her K was elevated and we order kionex. Hospitalist Physical - Constitutional Vitals: Temp Pulse Resp BP Pulse Ox 97.4 F L 77 25 H 155/102 95 01/04/21 12:00 01/04/21 16:00 01/04/21 16:00 01/04/21 16:00 01/04/21 16:00 General appearance: Present: mild distress, well-nourished, obese - EENT Eyes: Present: PERRL ENT: dentition normal - Neck Neck: Present: normal ROM - Respiratory Respiratory effort: normal Respiratory: bilateral: diminished - Cardiovascular Rhythm: regular Heart Sounds: Present: S1 & S2. Absent: systolic murmur, diastolic murmur - Extremities Extremities: no ischemia, pulses intact, pulses symmetrical, normal temperature, normal color, Full ROM Peripheral Pulses: within normal limits - Abdominal General gastrointestinal: soft, non-tender, non-distended, normal bowel sounds - Integumentary Integumentary: Present: warm, dry - Psychiatric Psychiatric: appropriate mood/affect, agitated - Neurologic Neurologic: CNII-XII intact, no focal deficits, moves all extremities - Allied Health Allied health notes reviewed: nursing, RT, social work HEART Score - HEART Score Troponin: Troponin T < 0.010 ng/mL (0.00-0.029) 12/31/20 00:57 Results - Labs CBC & Chem 7: 01/03/21 06:05 01/04/21 04:40 Labs: Laboratory Last Values WBC 10.4 K/mm3 (4.5-11.0) 01/03/21 06:05 RBC 4.04 M/mm3 (3.65-5.03) 01/03/21 06:05 Hgb 12.9 gm/dl (10.1-14.3) 01/03/21 06:05 Hct 38.0 % (30.3-42.9) 01/03/21 06:05 MCV 94 fl (79-97) 01/03/21 06:05 MCH 32 pg (28-32) 01/03/21 06:05 MCHC 34 % (30-34) 01/03/21 06:05 RDW 17.2 % (13.2-15.2) H 01/03/21 06:05 Plt Count 372 K/mm3 (140-440) 01/03/21 06:05 Lymph % (Auto) 7.0 % (13.4-35.0) L 01/01/21 05:04 [place] % (Auto) 5.2 % (0.0-7.3) 01/01/21 05:04 Eos % (Auto) 0.0 % (0.0-4.3) 01/01/21 05:04 Baso % (Auto) 0.4 % (0.0-1.8) 01/01/21 05:04 Lymph # (Auto) 0.8 K/mm3 (1.2-5.4) L 01/01/21 05:04 [place] # (Auto) 0.6 K/mm3 (0.0-0.8) 01/01/21 05:04 Eos # (Auto) 0.0 K/mm3 (0.0-0.4) 01/01/21 05:04 Baso # (Auto) 0.0 K/mm3 (0.0-0.1) 01/01/21 05:04 Add Manual Diff Complete 01/03/21 06:05 Total Counted 100 01/03/21 06:05 Seg Neutrophils % 87.4 % (40.0-70.0) H 01/01/21 05:04 Seg Neuts % (Manual) 87.0 % (40.0-70.0) H 01/03/21 06:05 Band Neutrophils % 3.0 % 01/03/21 06:05 Lymphocytes % (Manual) 4.0 % (13.4-35.0) L 01/03/21 06:05 Monocytes % (Manual) 4.0 % (0.0-7.3) 01/03/21 06:05 Metamyelocytes % 2.0 % 01/03/21 06:05 Nucleated RBC % 1.0 % (0.0-0.9) H 01/03/21 06:05 Seg Neutrophils # 9.9 K/mm3 (1.8-7.7) H 01/01/21 05:04 Seg Neutrophils # Man 9.0 K/mm3 (1.8-7.7) H 01/03/21 06:05 Band Neutrophils # 0.3 K/mm3 01/03/21 06:05 Lymphocytes # (Manual) 0.4 K/mm3 (1.2-5.4) L 01/03/21 06:05 Abs React Lymphs (Man) 0.0 K/mm3 01/03/21 06:05 Monocytes # (Manual) 0.4 K/mm3 (0.0-0.8) 01/03/21 06:05 Eosinophils # (Manual) 0.0 K/mm3 (0.0-0.4) 01/03/21 06:05 Basophils # (Manual) 0.0 K/mm3 (0.0-0.1) 01/03/21 06:05 Metamyelocytes # 0.2 K/mm3 01/03/21 06:05 Myelocytes # 0.0 K/mm3 01/03/21 06:05 Promyelocytes # 0.0 K/mm3 01/03/21 06:05 Blast Cells # 0.0 K/mm3 01/03/21 06:05 WBC Morphology Not Reportable 01/03/21 06:05 Hypersegmented Neuts Not Reportable 01/03/21 06:05 Hyposegmented Neuts Not Reportable 01/03/21 06:05 Hypogranular Neuts Not Reportable 01/03/21 06:05 Smudge Cells Not Reportable 01/03/21 06:05 Toxic Granulation Not Reportable 01/03/21 06:05 Toxic Vacuolation Not Reportable 01/03/21 06:05 Dohle Bodies Not Reportable 01/03/21 06:05 Pelger-Huet Anomaly Not Reportable 01/03/21 06:05 Anjum Rods Not Reportable 01/03/21 06:05 Platelet Estimate Consistent w auto 01/03/21 06:05 Clumped Platelets Not Reportable 01/03/21 06:05 Plt Clumps, EDTA Not Reportable 01/03/21 06:05 Large Platelets Not Reportable 01/03/21 06:05 Giant Platelets Not Reportable 01/03/21 06:05 Platelet Satelliting Not Reportable 01/03/21 06:05 Plt Morphology Comment Not Reportable 01/03/21 06:05 RBC Morphology Not Reportable 01/03/21 06:05 Dimorphic RBCs Not Reportable 01/03/21 06:05 Polychromasia Few 01/03/21 06:05 Hypochromasia Not Reportable 01/03/21 06:05 Poikilocytosis Not Reportable 01/03/21 06:05 Anisocytosis 1+ 01/03/21 06:05 Microcytosis Not Reportable 01/03/21 06:05 Macrocytosis Not Reportable 01/03/21 06:05 Spherocytes Not Reportable 01/03/21 06:05 Pappenheimer Bodies Not Reportable 01/03/21 06:05 Sickle Cells Not Reportable 01/03/21 06:05 Target Cells Not Reportable 01/03/21 06:05 Tear Drop Cells Not Reportable 01/03/21 06:05 Ovalocytes Not Reportable 01/03/21 06:05 Helmet Cells Not Reportable 01/03/21 06:05 [place] Bodies Not Reportable 01/03/21 06:05 [place] Rings Not Reportable 01/03/21 06:05 [place] Cells Not Reportable 01/03/21 06:05 Bite Cells Not Reportable 01/03/21 06:05 Crenated Cell Not Reportable 01/03/21 06:05 Elliptocytes Not Reportable 01/03/21 06:05 Acanthocytes (Spur) Not Reportable 01/03/21 06:05 Rouleaux Not Reportable 01/03/21 06:05 Hemoglobin C Crystals Not Reportable 01/03/21 06:05 Schistocytes Not Reportable 01/03/21 06:05 Malaria parasites Not Reportable 01/03/21 06:05 Ty Bodies Not Reportable 01/03/21 06:05 Hem Pathologist Commnt No 01/03/21 06:05 PT 15.5 Sec. (12.2-14.9) H 12/30/20 20:48 INR 1.25 (0.87-1.13) H 12/30/20 20:48 APTT 31.0 Sec. (24.2-36.6) 12/30/20 20:48 D-Dimer 736.75 ng/mlDDU (0-234) H 01/04/21 04:40 ABG pH 7.294 (7.320-7.450) L 12/31/20 01:25 POC ABG pCO2 41.0 mmHg (32.0-48.0) 12/31/20 01:25 POC ABG pO2 58.4 mmHg (83-108) L 12/31/20 01:25 POC ABG HCO3 19.5 12/31/20 01:25 ABG O2 Saturation 86.9 (0-100) 12/31/20 01:25 POC ABG Base Excess -6.7 12/31/20 01:25 ABG Hemoglobin 13.0 (12.0-17.5) 12/31/20 01:25 ABG Oxyhemoglobin 86.3 (94-98) L 12/31/20 01:25 ABG Methemoglobin 0 (0.0-1.5) 12/31/20 01:25 ABG Sodium 128.4 mmol/L (136.0-145.0) L 12/31/20 01:25 ABG Potassium 5.3 mmol/L (3.40-4.50) H 12/31/20 01:25 ABG Chloride 104.0 mmol/L (98-107) 12/31/20 01:25 ABG Glucose 153 mg/dL (65-95) H 12/31/20 01:25 Carboxyhemoglobin 0.7 (0.5-1.5) 12/31/20 01:25 FiO2 % 100.0 12/31/20 01:25 Sodium 138 mmol/L (137-145) 01/04/21 04:40 Potassium 5.4 mmol/L (3.6-5.0) H 01/04/21 04:40 Chloride 105.0 mmol/L (98-107) 01/04/21 04:40 Carbon Dioxide 26 mmol/L (22-30) 01/04/21 04:40 Anion Gap 12 mmol/L 01/04/21 04:40 BUN 29 mg/dL (7-17) H 01/04/21 04:40 Creatinine 1.5 mg/dL (0.6-1.2) H 01/04/21 04:40 Estimated GFR 46 ml/min 01/04/21 04:40 BUN/Creatinine Ratio 19 % 01/04/21 04:40 Glucose 134 mg/dL (65-100) H 01/04/21 04:40 POC Glucose 111 mg/dL (70-105) H 01/02/21 11:46 Lactic Acid 1.00 mmol/L (0.7-2.0) 12/31/20 00:57 Calcium 8.9 mg/dL (8.4-10.2) 01/04/21 04:40 Ferritin 475.7 ng/mL (10.0-200.0) H 01/04/21 04:40 Total Bilirubin 0.20 mg/dL (0.1-1.2) 01/04/21 04:40 AST 16 units/L (5-40) 01/04/21 04:40 ALT 22 units/L (7-56) 01/04/21 04:40 Alkaline Phosphatase 62 units/L (35-129) 01/04/21 04:40 Lactate Dehydrogenase 364 units/L (91-180) H 01/04/21 04:40 Total Creatine Kinase 394 units/L (30-135) H 12/30/20 20:48 CK-MB (CK-2) 3.7 ng/mL (0.0-4.0) 12/30/20 20:48 CK-MB (CK-2) Rel Index 0.9 (0-4) 12/30/20 20:48 Troponin T < 0.010 ng/mL (0.00-0.029) 12/31/20 00:57 C-Reactive Protein 1.50 mg/dL (0.00-1.30) H 01/04/21 04:40 NT-Pro-B Natriuret Pep 780.2 pg/mL (0-450) H 12/30/20 21:02 Total Protein 7.1 g/dL (6.3-8.2) 01/04/21 04:40 Albumin 3.1 g/dL (3.9-5) L 01/04/21 04:40 Albumin/Globulin Ratio 0.8 % 01/04/21 04:40 Procalcitonin 35.23 ng/mL (<0.15) 12/30/20 21:02 HCG, Qual Negative (Negative) 12/30/20 21:02 Arterial Blood Glucose 153 mg/dL (65-95) H 12/31/20 01:25 Arterial Blood Ionized Calcium 4.4 mg/dL (4.6-5.3) L 12/31/20 01:25 Coronavirus (PCR) Positive (Negative) A 12/31/20 08:30 Microbiology: Microbiology 12/30/20 21:18 Peripheral/Venous Blood Culture - Preliminary NO GROWTH AFTER 4 DAYS 12/30/20 21:13 Peripheral/Venous Blood Culture - Preliminary NO GROWTH AFTER 4 DAYS Suarez/IV: Voiding Method External Female Catheter Active Medications - Current Medications Current Medications: Generic Name Dose Route Start Last Admin Trade Name Freq PRN Reason Stop Dose Admin Acetaminophen 650 mg 01/01/21 11:57 01/03/21 17:52 Acetaminophen 325 Mg Tab PO 650 mg Q6H PRN Administration Pain, Mild (1-3) Albuterol 2 puff 01/01/21 20:00 01/04/21 15:26 Albuterol 8.5 Gm Mdi Inhalation IH 2 inhalation TID BEN Administration Amlodipine Besylate 10 mg 01/03/21 16:00 01/04/21 09:06 Amlodipine 10 Mg Tab PO Not Given DAILY BEN Dexamethasone 6 mg 01/02/21 22:00 01/04/21 11:42 Dexamethasone 4 Mg/Ml Vial IV 01/12/21 10:01 Not Given Q12HR BEN Gabapentin 300 mg 01/04/21 10:00 01/04/21 11:42 Gabapentin 300 Mg Cap PO Not Given BID BEN Guaifenesin 10 ml 01/02/21 22:00 01/02/21 22:37 Guaifenesin Dm 200/20 Mg Oral Liqd 10 Ml PO 10 ml Q8H PRN Administration Cough Heparin Sodium (Porcine) 5,000 unit 12/31/20 06:00 01/04/21 14:24 Heparin 5,000 Unit/1 Ml Vial SUB-Q Not Given Q8HR BEN Hydralazine HCl 10 mg 12/30/20 22:47 Hydralazine 20 Mg/1 Ml Inj IV Q6H PRN htn REMDESIVIR 100 mg/ Sodium 250 mls @ 500 mls/hr 01/04/21 21:00 Chloride IV 01/06/21 21:29 Q24HR@2100 [facility] Lorazepam 1 mg 12/31/20 11:30 01/03/21 22:01 Lorazepam 2 Mg/Ml Vial IV 1 mg Q6H PRN Administration Agitation Methocarbamol 750 mg 12/30/20 22:46 Methocarbamol 750 Mg Tab PO Q8H PRN back and hip pain Metoprolol Tartrate 25 mg 12/31/20 10:00 01/04/21 09:06 Metoprolol Tartrate 25 Mg Tab PO Not Given BID BEN Oxycodone/Acetaminophen 2 tab 12/31/20 18:57 01/03/21 08:33 Oxycodone /Acetaminophen 5-325mg Tab PO 2 tab Q6H PRN Administration Pain, Moderate (4-6) Pantoprazole Sodium 40 mg 01/03/21 10:00 01/04/21 10:42 Pantoprazole 40 Mg Tab PO Not Given QDAC BEN Sertraline HCl 25 mg 01/04/21 10:00 01/04/21 11:42 Sertraline 25 Mg Tab PO Not Given QDAY [facility] Sodium Chloride 50 ml 01/01/21 10:00 01/03/21 23:06 Sodium Chloride 0.9% 50 Ml Ivpb IV 01/06/21 21:01 Not Given Q24HR@2100 [facility] Nutrition/Malnutrition Assess - Dietary Evaluation Nutrition/Malnutrition Findings: Nutrition Notes Start: 01/01/21 08:33 Freq: Status: Active Protocol: Document 01/03/21 13:54 CW (Rec: 01/03/21 14:28 CW [id number]) Nutrition Notes Initial or Follow up Assessment Current Diagnosis Acute Kidney Injury, Hypertension,Respiratory Failure Other Pertinent Diagnosis SOB, Covid +, Kidney & stomach CA, s/p nephrectomy Current Diet renal consistent carbohydrate diet Labs/Tests BUN 28 Cr 1.5 Pertinent Medications Decadron Lasix Height 5 ft 4 in Weight 136 kg Usual Body Weight 136 kg [place] Body Weight (kg) 54.54 BMI 51.5 Weight change and time frame weight stable per pt. Weight Status Morbidly Obese Subjective/Other Information F/U for intakes. Pt has a poor PO intake. Spoke to pt regarding meal preferences. Pt is not interested in trying ONS. Percent of energy/protein needs met: 32%/25% Burn Absent Trauma Absent GI Symptoms None Food Allergy No Usual Diet at Home Fresh Fruit Current % PO Poor (25-49%) Minimum of two criteria No physical signs of malnutrition #1 Nutrition Diagnosis Inadequate oral intake Etiology dislike of meal As Evidenced by Signs and Symptoms pt reports a dislike of meals Is patient on ventilator? No Is Patient Ambulatory and/or Out of Bed No REE-([facility]-confined to bed) 2396.592 Kcal/Kg value to use for calculation 12 Approximate Energy Requirements Using 1632 kcal/Kg Calculation Used for Recommendations Kcal/kg Additional Notes protein: 76 - 95 (0.8 - 1g/ kgAdjBW 95.27) fluid needs: 1 ml/kcal Nutrition Intervention Change Diet Order: Continue Renal Consistent Carbohydrate diet Goal #1 Meet at least 75% of kcal and protein needs via PO intake Anticipated Discharge Needs: Consistent Carbohydrate Diet Follow-Up By: 01/05/21 Additional Comments F/U for intakes
[2021-01-04] MEDS: SODIUM CHLORIDE 0.9% 50 ML IVPB IV SCH (20:17)
[2021-01-04 20:18] VITALS: BP 119/79
--- NOTE | 2021-01-04 20:56 | Event Note ---
Date: 01/04/21 I was Called by patient nurse, patient is refusing care. She refuses his medical conditions and said that she will leave in the morning AMA. Patient was originally have an order to be transferred to [facility] by the day shift provider patient continues to be on oxygen 40L 80% FiO2 high flow nasal cannula. Just called by the patient nurse that patient left the building AMA.
[2021-01-04] MEDS ORDERED: REMDESIVIR 100 MG in SODIUM CHLORIDE 0.9% 250ML 250 ML IV SCH (21:00)
--- NOTE | 2021-01-05 14:06 | Discharge Summary ---
Providers - Providers Date of Admission: 12/30/20 23:02 Attending physician: MINI CONDE 12/30/20 22:23 Consult to Physician [CONS] Routine Comment: Consulting Provider: GOGRE MOURA Physician Instructions: Reason For Exam: pui 12/30/20 22:49 Consult to Physician [CONS] Routine Comment: Consulting Provider: LAUERANO VARGAS Physician Instructions: Reason For Exam: zhane 12/31/20 07:01 Consult to Physician [CONS] Routine Comment: Consulting Provider: KAYE DONATO Physician Instructions: Reason For Exam: acute respiratory failure 01/01/21 03:28 Consult to Dietitian/Nutrition [CONS] Routine Physician Instructions: Reason For Exam: pt needs diet order Reason for Consult: Pt needs oral supplement Primary care physician: [facility] Hospitalization Condition: Critical Hospital course: This is a 45-year-old female with hypertension, renal carcinoma s/p left nephrectomy, stomach cancer who presented to the emergency department on 12/30 with complaints of shortness of breath, dyspnea on exertion, fatigue, weakness, cough for about 2 weeks prior to arrival. Work up in the emergency department revealed acute respiratory failure, CXR concerning for multifocal pneumonia, acute kidney injury, hyponatremia, hyperkalemia, elevated proBNP at 780 and CRP at 15.4. Patient was admitted to the hospital service as a COVID-19 PUI with consults to [facility] [place], infectious disease and nephrology. 12/31/2020 -Severe sepsis with multiorgan dysfunction; continue IV antibiotics and IV fluids -PUI; dexamethasone, ID consult and pending results. -Acute hypoxic respiratory failure; patient is on BiPAP. Pulmonary consulted. Nebulizer treatment -ZHANE with hyperkalemia; patient was given Kayexalate. Patient refused calcium and insulin with dextrose. Nephrology consulted. -Patient is critically sick and she was agitated and tries to go home. ER doctor discussed with the daughter and patient wants to stay. I put the patient on Ativan as needed. 01/01/2021 -Patient Covid test is positive and is on dexamethasone and remdesivir. On empiric antibiotic. ID is following -Acute hypoxic respiratory failure, was on BiPAP yesterday and currently on high flow oxygen 40 L. Nebulizer treatment. -ZHANE; due to the above and improving. Hyperkalemia improved with Kayexalate.. Nephrology consult appreciated. I have seen and evaluated the patient and have explained the patient she wanted remdesivir, she did not say yes or no. I repeatedly asked good but she did not give me an answer. Patient wants to be transferred to [place] but there is no indication to transfer the patient to [place]. If they find a physician who called me to accept the patient I will gladly transfer the patient. I will not initiate the transfer. Patient is not happy, hostile to the medical staff including me. Dr. Donato discussed with the patient's son and mother and explained the situation. I Also discussed with Dr. Donato. 01/02/2021 -Patient is on remdesivir and Actemra. Dexamethasone twice daily dose due to patient size. On empiric IV antibiotics. Patient is on high flow oxygen. Pulmonary and ID is following the patient. Patient is willing to stay. Continue current management. 01/03: At the time of my examination patient is on high flow nasal cannula 40 L 100% FiO2 and is adamant no doctors updated on the plan of care. Patient's acute kidney injury improved further. [facility] [place] has ordered Lasix and we increased her amlodipine for better BP control. Patient has been educated regards to proning and need to keep oxygenation in place. 01/04: Patient continues to refuse care and medication and is adamant she is leaving AMA tomorrow. We will obtain an ABG and transfer her to [facility]. This morning at the time of my examination she was 40L 80% FiO2 HFNC. RT to wean as tolerated. Her K was elevated and we order kionex. Sepsis COVID-19 pneumonia Acute hypoxic respiratory failure Acute kidney injury on CKD Hypertension Renal carcinoma s/p nephrectomy Stomach cancer -[facility] [place], nephrology, infectious disease, appreciate recommendations -COVID-19 PCR positive -Empiric antibiotic therapy -Steroid, remdesivir, actemra -Contact/droplet precautions -Anticoagulation per protocol -Wean supplemental oxygen as tolerated -Educated on prone to sleep as tolerated -Pulmonary hygiene -Strict intake and output -Resume antihypertensive regimen and titrate as needed -Trend COVID-19 inflammatory markers for stratification, CBC, CMP GI/DVT prophylaxis: Protonix, heparin subcu, SCDs to bilateral actions while in bed Disposition: transfer to [facility] Patient left A even after extensive education by providers stressing the need to stay. Disposition: [id number] LEFT AGAINST MED ADVICE Final Discharge Diagnosis (Prints w/discharge instructions): Sepsis, COVID PNA, acute respiratory failure, ZHANE on CKD Core Measure Documentation - Palliative Care Palliative Care/ Comfort Measures: Not Applicable - Core Measures Any of the following diagnoses?: none Exam - Constitutional Vitals: Temp Pulse Resp BP Pulse Ox 97.8 F 67 28 H 119/79 84 01/04/21 19:54 01/04/21 20:00 01/04/21 20:00 01/04/21 20:00 01/04/21 18:00 Plan Follow up with: PRIMARY CAREMD [Primary Care Provider] - 7 Days Forms: AMA Form
== END 2021-01-04 20:47 | disposition left against medical advice (07) | DRG 871 ==
LOC: ED 20:22 → CC1 23:02
PROVIDERS: ADMIT Hospitalist; ATTEND Hospitalist
PROC: 5A09457 Assistance with Respiratory Ventilation, 24-96 Consecutive Hours, Continuous Positive Airway Pressure (ICD-10-PCS; 2020-12-30)
PROC: XW033H5 Introduction of Tocilizumab into Peripheral Vein, Percutaneous Approach, New Technology Group 5 (ICD-10-PCS; 2020-12-31)
PROC: 4A033R1 Measurement of Arterial Saturation, Peripheral, Percutaneous Approach (ICD-10-PCS; 2020-12-31)
PROC: XW033E5 Introduction of Remdesivir Anti-infective into Peripheral Vein, Percutaneous Approach, New Technology Group 5 (ICD-10-PCS; principal; 2021-01-01)
PROC: 5A0935A Assistance with Respiratory Ventilation, Less than 24 Consecutive Hours, High Flow/Velocity Cannula (ICD-10-PCS; 2021-01-01)
DX: A41.9 Sepsis, unspecified organism (principal); N17.0 Acute kidney failure with tubular necrosis; J96.01 Acute respiratory failure with hypoxia; U07.1 COVID-19; J12.82 Pneumonia due to coronavirus disease 2019; R65.20 Severe sepsis without septic shock; Z53.29 Procedure and treatment not carried out because of patient's decision for other reasons; N18.9 Chronic kidney disease, unspecified; I12.9 Hypertensive chronic kidney disease with stage 1 through stage 4 chronic kidney disease, or unspecified chronic kidney disease; E87.5 Hyperkalemia; Z88.1 Allergy status to other antibiotic agents; Z85.528 Personal history of other malignant neoplasm of kidney; Z85.028 Personal history of other malignant neoplasm of stomach; Z90.5 Acquired absence of kidney
CPT/HCPCS: 36415; 36600; 71045; 78580; 80048; 80053; 82140; 82550; 82553; 82728; 82805; 82947; 82962; 83615; 83880; 84145; 84484; 84703; 85007; 85025; 85379; 85610; 85730; 86140; 87040; 93005; 93970; 94640; 96365; 96366; 96367; 96375; 96376; G0378; A9540; C9113; J0456; J0610; J0696; J1100; J1170; J1644; J1815; J1940; J2060; J2405; J3262; J7030; U0003

== ENCOUNTER 2022-01-20 11:15 | Outpatient (CLI) | payer OTHER ==
--- NOTE | 2022-01-20 12:00 | XRay Report ---
Lumbar spine 3 views INDICATION: Back pain FINDINGS: Alignment appears normal. No compression fractures seen. No subluxation. Sacrum and sacroil iac joints appear normal. Signer Name: Rohit Quinones MD Signed: 01/20/2022 11:55 AM Workstation Name: [id number]
== END 2022-01-20 11:16 | disposition home or self-care (01) ==
LOC: XRAY 11:15
PROVIDERS: ATTEND Internal Medicine
DX: M54.50 Low back pain, unspecified (principal)
CPT/HCPCS: 72100